=== PATIENT | female | born 1990 | race Caucasian/White ===

== ENCOUNTER 2019-11-05 11:57 | Emergency (ER) | payer BC, SELFPAY ==
[2019-11-05 12:15] VITALS: BP 129/84; PULSE 102; RESP 20; TEMP 37.1; O2SAT 100
--- NOTE | 2019-11-05 12:20 | ED.GENADULT ---
HPI - General Adult General Chief complaint: Upper Respiratory Infection Stated complaint: COUGH/FATIGUE/SOB Time Seen by Provider: 11/05/19 12:21 Source: patient and RN notes reviewed Mode of arrival: ambulatory Limitations: no limitations History of Present Illness HPI narrative: 28-year-old female with complaints of flu-like symptoms, fatigue, body aches, sore throat, and cough for 1 day. No treatment. Rhinorrhea and nasal congestion. Exacerbating factors consist of smoke and influenza exposure. No nausea, vomiting, and abdominal pain. Denies chest pain, dyspnea, coughing up blood, difficulty swallowing, jaw pain, dental pain, facial pain, foreign body sensation, and rash. Jordi denies being , LMP 2 weeks ago. Some parts of this dictation were generated by voice recognition software and may contain typographical and/or grammatical inaccuracies. Related Data Home Medications Medication Instructions Recorded Confirmed clindamycin phosphate 2 % VAGINAL DIRECTED 11/05/19 11/05/19 fluconazole 150 mg PO DIRECTED 11/05/19 11/05/19 metoprolol tartrate 25 mg PO DAILY 11/05/19 11/05/19 metronidazole 500 mg PO DIRECTED 11/05/19 11/05/19 Allergies Allergy/AdvReac Type Severity Reaction Status Date / Time No Known Allergies Allergy Verified 06/07/18 13:23 Review of Systems Review of Systems: Narrative: CONSTITUTIONAL: Complains of fatigue. Denies fever, chills, sweats. EYES: Denies visual changes, redness, discharge. ENT: Complains of rhinorrhea, congestion, sore throat. Denies otalgia. CARDIOVASCULAR: Denies chest pain, palpitations, edema. RESPIRATORY: Denies dyspnea, wheezing. Complains of dry cough. GASTROINTESTINAL: Denies abdominal pain, nausea, vomiting, diarrhea. GENITOURINARY: Denies dysuria, hematuria, abnormal discharge SKIN: Denies rash or itching. MUSCULOSKELETAL: Denies acute back pain, joint pain. Complains of myalgia. NEUROLOGIC: Denies numbness or focal weakness. PSYCHIATRIC: Denies anxiety or depression. All systems reviewed & are unremarkable except as noted in HPI and below. [facility] Past Medical History Medical History (Updated 11/05/19 @ 12:38 by NIR Le) Anorexia Anxiety Bacterial vaginosis Dysrhythmia, cardiac Near syncope Surgical History Surgical History (Updated 11/05/19 @ 12:37 by NIR Le) History of bunionectomy of left great toe History of loop recorder History of surgery on left wrist Family History Family History Father Hypertension Mother Patient's mother is in good health Sibling Patient's brother is in good health Social History Social History (Updated 11/05/19 @ 12:40 by NIR Le) Smoking packs per day: 0.25 Smoking cigarettes per day: 5.0 Smoking status: Current every day smoker Tobacco type: cigarettes Additional smoking assessment comments: Patient says that she has been smoking again for a month and half to 2 steph Alcohol intake: never Substance use: never Occupation/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 There is no relevant family history pertinent to the presenting complaint. Exam Narrative: Exam Narrative: GENERAL: This is a well-nourished, well-developed patient, in no apparent distress. Speaks in full sentences and ambulates with steady gait without dyspnea. HEAD: normocephalic, atraumatic. EYES: PERRL. Sclera clear/white. Vision is grossly intact. EARS: External ears normal, auditory canals clear and without drainage, TMs normal without perforation. Hearing grossly intact. NOSE: External nose normal with no obvious nasal discharge, nares with mild redness and enlarged turbinates, clear rhinorrhea. THROAT: Muco
== END 2019-11-05 12:35 | disposition home or self-care (01) ==
PROVIDERS: Emergency Provider Nurse Practitioner Family
DX: B34.9 Viral infection, unspecified (principal); F17.210 Nicotine dependence, cigarettes, uncomplicated; F41.9 Anxiety disorder, unspecified
CPT/HCPCS: 87804; 99213; G0463

== ENCOUNTER 2020-03-10 18:38 | Emergency (ER) | payer BC, SELFPAY ==
--- NOTE | ~2020-03-10 | CT_ITS ---
EXAMINATION: CT abdomen pelvis w con DATE: 03/10/2020 21:24 INDICATION: Right upper quadrant abdominal pain. TECHNIQUE: Computed tomography (CT) of the abdomen and pelvis was performed with 100 mL Omnipaque 350 intravenous contrast. Automated exposure control and iterative reconstruction technique were employe d. The dose-length product was 787.05 mGy-cm. COMPARISON: None. FINDINGS: Calcified pulmonary nodules and calcified right hilar lymph nodes are consistent with old g ranulomatous disease. No pleural effusion. The heart size is normal. No pericardial effusion. The dom er, gallbladder, spleen, pancreas, adrenal glands, and kidneys are normal. There is an intrauterine d evice in expected position. There are no dilated loops of bowel. The appendix is normal. There are no pathologically enlarged lymph nodes. There is no free intraperitoneal fluid. There is mild lumbar sp ondylosis. IMPRESSION: 1. No etiology for the patient's symptoms. Reviewed, dictated and finalized at location A.
[2020-03-10 18:40] VITALS: BP 142/98; PULSE 111; RESP 18; TEMP 36.9; O2SAT 99
--- NOTE | 2020-03-10 19:06 | ED.ABDPAIN ---
HPI - Abdominal Pain General Chief Complaint: Abdominal Pain Stated Complaint: Abd Pain Time Seen by Provider: 03/10/20 19:02 History of Present Illness HPI narrative: RUQ pain intermittently sice yesterday. Comes in paroxysms. Severe at times. Minimal pain currently. No nausea, vomiting, diarrhea, constipation. Related Data Home Medications Medication Instructions Recorded Confirmed No Home Medications 03/10/20 03/10/20 Allergies Allergy/AdvReac Type Severity Reaction Status Date / Time No Known Allergies Allergy Verified 03/10/20 18:41 Review of Systems Review of Systems: All systems reviewed & are unremarkable except as noted in HPI and below Constitutional: Constitutional: Denies fever(s) Cardiovascular: Cardiovascular: Denies chest pain Respiratory: Respiratory: Denies dyspnea Gastrointestinal: Gastrointestinal: Reports abdominal pain PMFSH Past Medical History Medical History Anorexia Anxiety Bacterial vaginosis Dysrhythmia, cardiac Near syncope Surgical History Surgical History History of bunionectomy of left great toe History of loop recorder History of surgery on left wrist Family History Family History Father Hypertension Mother Patient's mother is in good health Sibling Patient's brother is in good health Social History Social History Smoking packs per day: 0.25 Smoking cigarettes per day: 5.0 Smoking status: Current every day smoker Tobacco type: cigarettes Additional smoking assessment comments: Patient says that she has been smoking again for a month and half to 2 steph Alcohol intake: never Substance use: never 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 Gender identity (if verbalized by the patient): Female Exam Const: General: healthy appearing, no acute distress and alert Orientation/consciousness: patient oriented x3 HENMT: Head: normal to inspection Neck: Neck: normal visual inspection and no lymphadenopathy Chest: Chest palpation & inspection: no tenderness Resp: Effort & Inspection: normal respiratory effort Auscultation: clear to auscultation bilaterally, no rales, no rhonchi and no wheezes Cardio: Jugular venous distension: no JVD Rate: regular rate Rhythm: regular rhythm Heart sounds: no murmurs GI: Inspection: non-distended GI Palp: Yes Soft to palpation and No Tenderness to palpation present (GI) Skin: General skin exam: normal color Neuro: General: patient oriented x3 and moves all extremities Speech: normal speech Extrem: General: no edema Psych: Appearance: well kempt Affect: normal affect Course Vital Signs Vital signs: Vital Signs Temperature 36.9 C 03/10/20 18:40 Pulse Rate 111 H 03/10/20 18:40 Respiratory Rate 18 03/10/20 18:40 Blood Pressure 142/98 H 03/10/20 18:40 Pulse Oximetry 99 03/10/20 18:40 Temperature 36.9 C 03/10/20 18:40 Pulse Rate 76 03/10/20 22:26 Respiratory Rate 18 03/10/20 22:26 Blood Pressure 132/70 03/10/20 22:26 Pulse Oximetry 99 03/10/20 22:26 MDM - Abdominal Pain Differential Diagnosis Differential diagnosis: Likely acute appendicitis, calculus of kidney, constipation and pancreatitis Medical Records Attestation: I reviewed the patient's medical records. Lab Data Attestation: I reviewed the patient's lab results. Result diagrams: 03/10/20 19:05 03/10/20 19:05 Labs: Lab Results 03/10/20 03/10/20 03/10/20 Range/Units 19:05 19:05 20:33 WBC 8.6 (4.5-10.0) K/mm3 RBC 4.64 (4.2-5.4) M/mm3 Hgb 13.8 (12.0-15.0) g/dL Hct 40.9 (37.0-47.0) % MCV 88.1 (80-100) fl MCH 29.7 (26-34) pg MCHC 33.7 (32-36) g/dl RDW 12.3 (11.5-14.5) % Plt Count 288
[2020-03-10 19:13] LABS: Basophils Absolute Auto 0.1 K/mm3 (0.0-0.1); Basophils Percent Auto 0.6 % (0.2-1.2); Eosinophils Absolute Auto 0.1 K/mm3 (0-0.3); Eosinophils Percent Auto 1.6 % (0-4.4); Hematocrit 40.9 % (37.0-47.0); Hemoglobin 13.8 g/dL (12.0-15.0); Immature Granulocyte Absolute 0.02 K/mm3 (0.00-0.031); Immature Granulocyte Percent A 0.2 % (0-0.5); Lymphocytes Percent Auto 33.6 % (18.3-44.2); Mean Corpuscular HGB Conc 33.7 g/dl (32-36); Mean Corpuscular Hemoglobin 29.7 pg (26-34); Mean Corpuscular Volume 88.1 fl (80-100); Mean Platelet Volume 9.6 fl (7.4-10.4); Monocytes Absolute Auto 0.5 K/mm3 (0.1-0.6); Monocytes Percent Auto 5.6 % (2.6-8.5); Neutrophils Percent Auto 58.4 % (45.5-73.1); Platelet Count Result 288 k/mm3 (150-375); Red Blood Count 4.64 M/mm3 (4.2-5.4); Red Cell Distribution Width 12.3 % (11.5-14.5); White Blood Count 8.6 K/mm3 (4.5-10.0)
[2020-03-10 19:24] LABS: Alanine Aminotransferase 16 U/L (4-35); Albumin Level 4.4 g/dL (3.5-5.1); Alkaline Phosphatase 66 U/L (38-126); Aspartate Amino Transferase 23 U/L (14-36); Bilirubin,Total 0.4 mg/dL (0.2-1.3); Blood Urea Nitrogen 11 mg/dL (7-17); Calcium 9.1 mg/dL (8.4-10.2); Carbon Dioxide 27 mmol/L (22-30); Chloride 102 mmol/L (98-107); Estimated CRCL calculation 135 ml/min; Estimated Glomerular Filt Rate > 60; Glucose 93 mg/dL (65-105); Lipase 45 U/L (23-300); Potassium 3.7 mmol/L (3.4-5.0); Sodium 136 mmol/L (137-145)
[2020-03-10 20:37] VITALS: BP 122/90; PULSE 86; RESP 20; O2SAT 100
[2020-03-10 20:53] LABS: Add Urine Microscopic? YES; Appearance Urine Clear (Clear); Bilirubin Urine Negative (Negative); Blood Urine 2+ (Negative); Color Urine Colorless (Yellow); Glucose Urine UA Negative (Negative); Ketones Urine Negative (Negative); Leukocyte Esterase Ur Negative LEU/UL (Negative); Mucus Urine Rare /lpf; Nitrate Urine Negative (Negative); Protein Urine Negative (Negative); Specific Grav Ur 1.008 (1.001-1.035); Squamous Epithelial Cell Urine Rare /hpf (Few); Urobilinogen Urine Negative mg/dL (<2.0); WBC Urine 0-3 /hpf
[2020-03-10 22:26] VITALS: BP 132/70; PULSE 76; RESP 18; O2SAT 99
== END 2020-03-10 22:28 | disposition home or self-care (01) ==
PROVIDERS: General Practice; Emergency Provider Emergency Medicine; PCP Nurse Practitioner Family
DX: R10.11 Right upper quadrant pain (principal); F17.210 Nicotine dependence, cigarettes, uncomplicated
CPT/HCPCS: 36415; 74177; 80053; 81001; 81025; 83690; 85025; 99284; Q9967

== ENCOUNTER 2020-08-11 12:46 | Outpatient (RCR) | payer BC, SELFPAY | END 2020-11-09 23:59 | disposition home or self-care (01) | LOC: ANHLAB 12:46 | PROVIDERS: PCP Nurse Practitioner Family; Visit Provider Obstetrics & Gynecology | DX: O20.0 Threatened abortion (principal); Z3A.00 Weeks of gestation of pregnancy not specified | CPT/HCPCS: 36415; 84702; 85461 ==

== ENCOUNTER 2020-10-23 02:33 | Outpatient (CLI) | payer BC, SELFPAY ==
[2020-10-23 18:12] LABS: SARS-CoV-2 RNA PCR Negative
== END 2020-10-23 02:34 | disposition home or self-care (01) ==
LOC: ANHCOVIDDT 02:34
PROVIDERS: PCP Nurse Practitioner Family; Visit Provider Obstetrics & Gynecology
DX: Z01.812 Encounter for preprocedural laboratory examination (principal); Z20.822 Contact with and (suspected) exposure to COVID-19
CPT/HCPCS: C9803; U0003; U0005

== ENCOUNTER 2020-10-26 02:50 | Day surgery (SDC) | payer BC, SELFPAY ==
[2020-10-23 15:49] VITALS: BMI 33.4
--- NOTE | 2020-10-25 14:24 | WPDANESEPPF ---
Anes - Initial Pre Proc Eval Procedure: Operation Date: 10/26/20 13:00 Proposed Procedures p Suction Dilation And Curettage - Valentine Hsu MD Date/Time: 10/25/20 14:24 Surgeon: Valentine Hsu MD Pre Op Diagnosis: Retained Products of Conception Patient Data Age: 29 Gender: F Height: 1.68 m Weight: 94 kg Allergies Allergy/AdvReac Type Severity Reaction Status Date / Time No Known Allergies Allergy Verified 10/26/20 11:08 Home Medications Medication Instructions Recorded Confirmed Type albuterol 2 puff INHALATION Q4-6H PRN 10/23/20 10/23/20 History budesonide-formoterol [Symbicort] 2 puff INHALATION QAM 10/23/20 10/26/20 History metoprolol tartrate 25 mg PO DAILY 10/23/20 10/26/20 History Patient hx anesthesia problems: none Family hx anesthesia problems: none PMFSH Past Medical History Medical History (Updated 10/25/20 @ 14:25 by Daron Oakley MD) Anorexia Anxiety Bacterial vaginosis Depression Dysrhythmia, cardiac sinus tachycardia Near syncope Obesity Surgical History Surgical History History of bunionectomy of left great toe History of loop recorder History of surgery on left wrist Family History Family History Father Hypertension Mother Patient's mother is in good health Sibling Patient's brother is in good health Social History Social History Smoking packs per day: 1 Smoking cigarettes per day: 20.0 Years smoked: 10 Smoking pack-years: 10.00 Smoking status: Never smoker Tobacco type: e-cigarettes/vaping Additional smoking assessment comments: VAPES LOWEST NICTOINE, INTERMITTENLY THROUGHOUT DAY Alcohol intake: current Drinks per week: 10 Substance use: never Living arrangements: with family Additional living arrangements comments: SPOUSE 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 Questions were solicited and answers provided to the satisfaction of the patient/family/POA.
--- NOTE | 2020-10-26 11:17 | ECG_ITS ---
Measurements Intervals [place] Rate: 72 P: 46 AR: 155 QRS: 66 QRSD: 91 T: 26 QT: 391 QTc: 429 Interpretive Statements SINUS RHYTHM BASELINE ARTIFACT- I, II, AVR NORMAL ECG Electronically Signed On 10-26-2020 12:17:38 COMMUNICATIONS SPECIALIST by Suresh Hall D.O.
[2020-10-26] MEDS: ACETAMINOPHEN 500 MG TABLET 1000 MG PO (11:20)
[2020-10-26] MEDS: LACTATED RINGERS 1,000 ML 30 ML IV CONT (11:34)
[2020-10-26 11:42] VITALS: BP 119/74; PULSE 78; RESP 16; TEMP 36.3; O2SAT 99
--- NOTE | 2020-10-26 12:28 | P.HP_ITS ---
H&P: HPI History of Present Illness Date/Time: 10/26/20 12:28 Chief Complaint: persistent bleeding, retained POC Narrative: Jordi Ledesma is a 29 year old female who miscarried in Jul, then bled all august. US showed 2cm cystic, septated, vascular area at fundal endometrium. hcg now neg. on doxy for several days now for some uterine tenderness. Review of Systems Review of Systems: All systems reviewed & are unremarkable except as noted in HPI and below (hpi) [facility] Past Medical History Medical History (Updated 10/25/20 @ 14:25 by Daron Oakley MD) Anorexia Anxiety Bacterial vaginosis Depression Dysrhythmia, cardiac sinus tachycardia Near syncope Obesity Surgical History Surgical History History of bunionectomy of left great toe History of loop recorder History of surgery on left wrist Family History Family History Father Hypertension Mother Patient's mother is in good health Sibling Patient's brother is in good health Social History Social History Smoking packs per day: 1 Smoking cigarettes per day: 20.0 Years smoked: 10 Smoking pack-years: 10.00 Smoking status: Never smoker Tobacco type: e-cigarettes/vaping Additional smoking assessment comments: VAPES LOWEST NICTOINE, INTERMITTENLY THROUGHOUT DAY Alcohol intake: current Drinks per week: 10 Substance use: never Living arrangements: with family Additional living arrangements comments: SPOUSE 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 Meds Home Medications and Allergies Home Medications Medication Instructions Recorded Confirmed Type albuterol 2 puff INHALATION Q4-6H PRN 10/23/20 10/23/20 History budesonide-formoterol [Symbicort] 2 puff INHALATION QAM 10/23/20 10/26/20 History metoprolol tartrate 25 mg PO DAILY 10/23/20 10/26/20 History Allergies Allergy/AdvReac Type Severity Reaction Status Date / Time No Known Allergies Allergy Verified 10/26/20 11:08 Vital Signs Vital Signs - 24 hr 10/26/20 11:42 Temperature 97.3 F L Pulse Rate 78 Respiratory Rate 16 Blood Pressure 119/74 Pulse Oximetry 99 Exam Const: General: comfortable, no acute distress and in distress Resp: Auscultation: clear to auscultation bilaterally Cardio: Rate: regular rate Rhythm: regular rhythm GI: GI Palp: Yes Soft to palpation Skin: General skin exam: normal color and no rashes or lesions noted Psych: Mental Status: mental status grossly normal H&P: Results Labs Labs: hcg neg in office see HPI for US results. Assessment and Plan Additional Plan Discussed US results in depth. Not classic appearance for retained POC, but makes most sense given her history and clinical presentation. Consented for HSC and D and C. HSC first to look at lesion. Likely suction D and C. continue doxy, one dose IV today. will follow pathology closely.
--- NOTE | 2020-10-26 13:07 | WPDHPUPDATE1 ---
History and Physical Update Update Date/Time: 10/26/20 13:07 History and Physical has been reviewed, including an updated exam of the patient. There are NO changes in the patient's condition. Had one episode of a gush of blood since office visit, then stopped quickly. No pain. Taking doxy. NO fevers. Risks, benefits, and alternatives have been discussed and questions answered. Patient agrees to proceed with procedure.
--- NOTE | 2020-10-26 13:30 | SUR.OPER ---
Hysteroscopy irrigation 3800ml IVNS in and 3350ml IVNS out
[2020-10-26] MEDS: KETOROLAC 30 MG/ML VIAL (*BKC) IV PUSH (13:57)
--- NOTE | 2020-10-26 13:58 | P.OP_ITS ---
Procedure Note - Detailed Date of procedure: 10/26/20 Pre-op diagnosis: Retained Products of Conception Post-op diagnosis: other (partially cystic mass of endometrium, possible degenerating fibroid.) Procedure performed: hysteroscopy, suction D and C, myosure curettage Description of procedure: The patient was taken to the operating room where she received MAC anesthesia. [facility] Exam under anesthesia revealed normal retroverted uterus. She was prepped and draped in normal fashion. Her bladder was emptied with a red rubber catheter. The uterus sounded to 9cm. A speculum was placed and the cervix was grasped with a single tooth tenaculum. The cervix was already dilated enough to accomodate a 5mm hysteroscope. The scope was inserted and the uterine cavity visualized. A mass was noted on the posterior wall of the uterus, consistent with the location of the cystic vascular lesion on US. The scope was removed and given cystic nature of the mass, suction D and C was attempted. Several passes were made, obtaining minimal white tissue. The scope was reinserted and the mass appeared mostly unchanged. After a sharp curettage, the mass still remained mostly intact. A Myosure device was inserted. The first pass with the myosure did obtain what appeared like cyst wall, and part of the mass deflated. The remainder appeared more solid, similar to a degenerating fibroid. The specimen was sent to pathology. The tenaculum was removed and the cervix made hemostatic with pressure. THe speculum was removed. The patient was awakened from anesthesia and taken to the recovery room in good condition. Anesthesia: MAC Surgeon: Valentine Hsu MD Drains: No Packing: No Pathology: yes Complications: No immediate complications Condition: stable Disposition: floor Findings: EBL 50cc Fluid defecit 450cc, large amount of fluid on floor was approximated.
[2020-10-26 14:02] VITALS: BP 105/66; PULSE 75; RESP 20; O2SAT 97
[2020-10-26] MEDS: ONDANSETRON INJ 4 MG/2 ML VIAL IV PUSH (14:20)
[2020-10-26] MEDS: fentaNYL CITRATE INJ (*CRX) 100 MCG/2 ML VIAL 25 MCG IV PUSH (14:20)
[2020-10-26 14:32] VITALS: BP 118/81; PULSE 68; RESP 20; O2SAT 98
[2020-10-26 15:02] VITALS: BP 128/75; PULSE 65; RESP 20
== END 2020-10-26 15:15 | disposition home or self-care (01) ==
PROVIDERS: PCP Nurse Practitioner Family; Visit Provider Obstetrics & Gynecology
PROC: (CPT 59820; principal; 2020-10-26 13:00)
DX: O02.1 Missed abortion (principal); F41.9 Anxiety disorder, unspecified; R63.0 Anorexia; R00.0 Tachycardia, unspecified; E66.9 Obesity, unspecified; Z68.32 Body mass index [BMI] 32.0-32.9, adult
CPT/HCPCS: 59820; 88305; 93005; A9270; C9803; J1885; J2250; J2405; J2704; J3010; J7030; J7120; U0003; U0005

== ENCOUNTER 2022-08-16 17:21 | Emergency (ER) | payer BC, SELFPAY ==
[2022-08-16 18:22] VITALS: BP 153/100; PULSE 97; RESP 16; TEMP 36.4; O2SAT 100
--- NOTE | 2022-08-16 18:44 | ED.GENADULT ---
HPI - General Adult General Chief complaint: Upper Respiratory Infection Stated complaint: cp/sob Time Seen by Provider: 08/16/22 18:45 Source: patient Mode of arrival: ambulatory Limitations: no limitations History of Present Illness HPI narrative: Year old female patient presents to [facility] with complaints of URI symptoms. Patient states she was diagnosed with COVID about 6 days ago. Patient states she had very mild symptoms had a day or 2 without symptoms. Patient states that this morning she woke up with some shortness of breath especially on exertion, just feeling like she is having trouble breathing slight cough. Patient does have history of asthma and states she has been using her albuterol inhaler as needed but states it has only been about once a day. Denies any fevers, body aches or chills at this time. Related Data Home Medications Medication Instructions Recorded Confirmed albuterol 2 puff inhalation Q4-6H PRN Dyspnea 10/23/20 10/23/20 budesonide-formoterol HFA 160 2 puff inhalation QAM 10/23/20 10/26/20 mcg-4.5 mcg/actuation aerosol inhaler (Symbicort) metoprolol tartrate 25 mg tablet 25 mg PO DAILY 10/23/20 10/26/20 clobetasol 0.05 % scalp solution topical 08/16/22 cyclobenzaprine 5 mg tablet mg 08/16/22 ketoconazole 2 % shampoo topical 08/16/22 trazodone 50 mg tablet mg 08/16/22 Allergies Allergy/AdvReac Type Severity Reaction Status Date / Time No Known Allergies Allergy Verified 08/16/22 18:20 Review of Systems Review of Systems: CONSTITUTIONAL: Denies fever, chills, or sweats. EYES: Denies visual changes, redness, or discharge. ENT: Denies rhinorrhea, congestion, sore throat, or otalgia. CARDIOVASCULAR: Denies chest pain, palpitations, or edema. RESPIRATORY: Positive cough with dyspnea. GASTROINTESTINAL: Denies abdominal pain, nausea, vomiting, or diarrhea. GENITOURINARY: Denies dysuria or hematuria. SKIN: Denies rash or itching. MUSCULOSKELETAL: Denies back pain, joint pain, or myalgia. NEUROLOGIC: Denies headache, numbness, or weakness. PSYCHIATRIC: Denies anxiety or depression. [facility] Past Medical History Medical History (Updated 08/16/22 @ 18:57 by NIR Ng) Anorexia Anxiety Asthma Bacterial vaginosis Depression Dysrhythmia, cardiac sinus tachycardia Near syncope Obesity Surgical History Surgical History History of bunionectomy of left great toe History of loop recorder History of surgery on left wrist Family History Family History Father Hypertension Mother Patient's mother is in good health Sibling Patient's brother is in good health Social History Social History Smoking packs per day: 1 Smoking cigarettes per day: 20.0 Years smoked: 10 Smoking pack-years: 10.00 Smoking status: Never smoker Tobacco type: e-cigarettes/vaping Additional smoking assessment comments: VAPES LOWEST NICTOINE, INTERMITTENLY THROUGHOUT DAY Alcohol intake: current Drinks per week: 10 Substance use: never Additional living arrangements comments: SPOUSE 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 HEAD: Normocephalic, atraumatic. EYES: PERRLA and EOMI. ENT: Nares clear, no rhinorrhea or epistaxis. Mucous membranes moist. NECK: Supple. No lymphadenopathy CHEST: Clear to auscultation. No respiratory distress. Patient will talk in clear complete sentences. HEART: Regular rate and rhythm. No murmur heard. Normal peripheral pulses. ABDOMEN: Soft, nontender, nondistended, normal active bowel sounds. EXTREMITIES: Normal range of motion. No edema. SKIN: Warm, dry, no rash. NEURO: No focal deficits. Alert and
== END 2022-08-16 19:00 | disposition home or self-care (01) ==
PROVIDERS: Emergency Provider Nurse Practitioner Family
DX: J45.901 Unspecified asthma with (acute) exacerbation (principal); U07.1 COVID-19; E66.9 Obesity, unspecified; Z68.36 Body mass index [BMI] 36.0-36.9, adult; F17.290 Nicotine dependence, other tobacco product, uncomplicated
CPT/HCPCS: 99213; G0463

== ENCOUNTER 2023-03-11 14:40 | Emergency (ER) | payer BC, SELFPAY ==
--- NOTE | ~2023-03-11 | XR_ITS ---
EXAMINATION: XR abdomen obstructive series EXAMINATION: Obstructive series DATE: 03/11/2023 INDICATION: Right upper quadrant abdominal pain. Nausea. Constipation. TECHNIQUE: Upright and supine views of the abdomen on 3 radiographs were obtained. COMPARISON: None. FINDINGS: There are no dilated loops of bowel. There is liquid stool in the colon suggesting diarrhea . No free intraperitoneal gas. There is an intrauterine device in expected position. An electronic im plant overlies left chest. IMPRESSION: 1. Nonobstructive bowel gas pattern. Reviewed, dictated and finalized at location A.
== END 2023-03-11 15:45 | disposition home or self-care (01) ==
PROVIDERS: Emergency Provider Nurse Practitioner Family; PCP Nurse Practitioner Family
DX: R14.0 Abdominal distension (gaseous) (principal); R10.11 Right upper quadrant pain; R11.0 Nausea
CPT/HCPCS: 74019; 81002; 81025; 99213; G0463

== ENCOUNTER 2023-03-19 10:30 | Emergency (ER) | payer OTHER, SELFPAY ==
--- NOTE | ~2023-03-19 | XR_ITS ---
EXAMINATION: [id number] DATE: 03/19/2023 10:57 INDICATION: 7 days of the medial right knee pain TECHNIQUE: AP and lateral views of the right knee were obtained. COMPARISON: None. FINDINGS: Bone alignment is normal. No fracture. Joint spaces appear normal. Soft tissues are unremarkable. No right knee joint effusion. IMPRESSION: 1. . Negative right knee radiographs. Reviewed, dictated and finalized at location A.
--- NOTE | 2023-03-19 10:32 | ED.LOWEXIN ---
HPI - Extremity Injury (Lower) General Chief Complaint: Extremity Injury, Lower Stated Complaint: Right knee injury Time Seen by Provider: 03/19/23 10:32 Source: patient Mode of arrival: ambulatory Limitations: no limitations History of Present Illness HPI Narrative: Jordi is a 32-year-old female patient presenting to clinic today with complaints of right knee pain/injury. 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 Is having worse pain with bending and flexing the right knee. Reports pain is sharp and feels as though it is within the knee joint. Pain is worse with full flexion or full extension of the right knee. Weightbearing as tolerable. Related Data Home Medications Medication Instructions Recorded Confirmed albuterol sulfate 90 mcg/actuation 90 mcg inhalation QID PRN sob 03/19/23 03/19/23 aerosol inhaler alprazolam 0.25 mg tablet 0.25 mg PO DAILY PRN Anxiety 03/19/23 03/19/23 budesonide-formoterol HFA 160 2 inh inhalation DAILY 03/19/23 03/19/23 mcg-4.5 mcg/actuation aerosol inhaler cyclobenzaprine 5 mg tablet 5 mg PO DAILY PRN muscle spasms 03/19/23 03/19/23 desvenlafaxine succinate 50 mg 50 mg PO DAILY 03/19/23 03/19/23 tablet,extended release 24 hr metformin 1,000 mg tablet 1,000 mg PO DAILY 03/19/23 03/19/23 metoprolol tartrate 25 mg tablet 25 mg PO DAILY 03/19/23 03/19/23 spironolactone 100 mg tablet 100 mg PO DAILY 03/19/23 03/19/23 Allergies Allergy/AdvReac Type Severity Reaction Status Date / Time No Known Allergies Allergy Verified 03/19/23 10:44 Review of Systems Review of Systems: Pertinent positives per HPI. Patient denies any fever, chills, rash, headache, visual changes, dizziness, cough, runny nose, sore throat, shortness of breath, chest pain, palpitations, nausea, vomiting, diarrhea, constipation, abdominal pain, or any urinary issues. PMFSH Past Medical History Medical History Anorexia Anxiety Asthma Bacterial vaginosis Depression Dysrhythmia, cardiac sinus tachycardia Near syncope Obesity Surgical History Surgical History History of bunionectomy of left great toe History of loop recorder History of surgery on left wrist Family History Family History Father Hypertension Mother Patient's mother is in good health Sibling Patient's brother is in good health Social History Social History Smoking packs per day: 1 Smoking cigarettes per day: 20.0 Years smoked: 10 Smoking pack-years: 10.00 Smoking status: Never smoker Tobacco type: e-cigarettes/vaping Additional smoking assessment comments: VAPES LOWEST NICTOINE, INTERMITTENLY THROUGHOUT DAY Alcohol intake: current Drinks per week: 10 Substance use: never Living arrangements: with family Additional living arrangements comments: SPOUSE 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 There is no relevant family history pertinent to the patient complaint. Exam Narrative: General: Well-developed, well nourished, in no apparent distress Head: Normocephalic, atraumatic. Cardio: Regular rate and rhythm, s1 and s2 normal, no murmur appreciated. Resp: Clear to auscultation bilaterally, no rhonchi, rales, wheezing or rubs. Musculoskeletal: No deformity, tender to palpation to the medial anterior knee and tenderness over the MCL ligament, pain with valgus stress test without laxity, is having pain with full
[2023-03-19 10:43] VITALS: BP 137/99; PULSE 127; RESP 16; TEMP 36.7; O2SAT 99
== END 2023-03-19 11:14 | disposition home or self-care (01) ==
LOC: EXPCOLL 10:37
PROVIDERS: Emergency Provider Nurse Practitioner Family; PCP Nurse Practitioner Family
DX: M23.91 Unspecified internal derangement of right knee (principal); F17.290 Nicotine dependence, other tobacco product, uncomplicated; F41.9 Anxiety disorder, unspecified; F32.A Depression, unspecified; J45.909 Unspecified asthma, uncomplicated; E66.9 Obesity, unspecified; Z68.35 Body mass index [BMI] 35.0-35.9, adult
CPT/HCPCS: 73560; 99213; G0463

== ENCOUNTER 2024-10-25 11:22 | Outpatient (CLI) | payer OTHER, SELFPAY ==
--- NOTE | ~2024-10-25 | MMUS_ITS ---
EXAMINATION: MM diagnostic wilma BI w divina, US breast BI complete HISTORY: Burning sensation of the breasts. TECHNIQUE: Additional 3-D tomosynthesis images of the breasts were performed and synthetic 2-D images were generated. CAD analysis was submitted and interpreted. High resolution bilateral complete breas t ultrasound was performed. COMPARISON: None BREAST PARENCHYMAL COMPOSITION: Not dense: There are scattered areas of fibroglandular density. FINDINGS: MAMMOGRAPHIC FINDINGS: There are no suspicious masses, calcifications or architectural distortion in either breast to sugges t malignancy. ULTRASOUND: Complete US of all 4 quadrants of the breast/s and retroareolar region was reviewed. In the right david ast at 8:00, 2 cm from the nipple there is a small intramammary lymph node measuring 5 mm. No suspici ous masses in either breast to suggest malignancy. IMPRESSION: 1. No evidence for malignancy in either breast. 2. Routine yearly screening mammogram at age 40 and regular clinical breast examination are recommend ed. BI-RADS Category 2: Benign finding(s). Reviewed, dictated and finalized at location A. IMEN PROCESSOR IMPRESSION: 1. No evidence for malignancy in either breast. 2. Routine yearly screening mammogram at age 40 and regular clinical breast exa mination are recommended. BI-RADS Category 2: Benign finding(s).
--- OUTSIDE RECORDS SUMMARY | 2024-10-25 12:35 | XMS_ITS | Encounter Summary ---
Author Organization [facility] Address [address] [place] [address]. [place] [address] [place] [address] Care Team Providers Care Ballpoint Pen Assembly Machine Operator Name Role Phone Jess Sosa [facility] Primary Care Provider [phone] Gerard Olson MD Unavailable [phone] [facility] MD Unavailable [phone] Dinah Mcintosh MD Primary Care Provider [phone] Encounter Details Date Type Department Care Team (Late st Contact Info) Description 01/10/2021 MyCLoom Decort Message Enc [facility] Medical Group Family Medicine [facility] [address] [place] [address] Jess Sosa [facility] [address] [place] [address] RE: Medication Questions Social History Tobacco Use Types Packs/Day Years Used Date Smoking Tobacco: Former Cigarettes 1 10 0 02/27/2008 - 02/26/2018 Smokeless Tobacco: Never Alcohol Use Standard Drinks/Week Comments Yes 0 (1 standard drink = 0.6 oz pur e alcohol) PHQ-2 Answer Date Recorded PHQ-2 Score - If the patient scores above 3, please move on to questions 3-9 0 10/09/2020 Comments No Sex and Gender Information Value Date Recorded Sex Assigned at Not on file Legal Sex Female 9:09 PM CDT Gender Identity Not on file Sexual Orientation Not on file 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 Unable to assess 12/18/2020 12:51 PM CDT documented as of this encounter Plan of Treatment Upcoming Encounters Date Type Department Care Team (Late st Contact Info) Description 11/01/2024 8:45 AM SUPERVISOR INSPECTION ROOM Office Visit [facility] [facility] THREE [facility], [place] [address] [place] [address] Art Rao MD Three [facility]. [place] [address] [place], [place] [id number] documented as of this encounter Visit Diagnoses Not on filedocumented in this encounter Care Teams Ballpoint Pen Assembly Machine Operator Relationship Specialty Start Date End Date Jess Sosa [facility] [address] [place] [address] PCP - General NURSE PRACTITIONER 11/10/18 05/28/24 Dinah Mcintosh MD [address] [place] [address] PCP - General FAMILY PRACTICE 05/29/24 Gerard Olson MD [address] [place] [address] ADMINISTRATIVE SERVICES COORDINATOR ONCOLOGY 05/18/19 Art Rao MD Three [facility]. [place] [address] [place], [place] [id number] EP International Bank Manager CARDIOVASCULAR DISEASE 06/01/19 documented as of this encounter
--- OUTSIDE RECORDS SUMMARY | 2024-10-25 12:35 | XMS_ITS | Encounter Summary ---
Author Organization [facility] [place] [facility] Address [address] [place] [address]. [place] [address] [place] [address] Care Team Providers Care Bullet Slug Casting Machine Operator Name Role Phone [facility] Primary Care Provider [phone] Gerard Olson MD Unavailable [phone] [facility] Unavailable [phone] Dinah Mcintosh MD Primary Care Provider [phone] Encounter Details Date Type Department Care Team (Late st Contact Info) Description 10/31/2020 WaysGo Message Enc [place] [facility]'[address] [address] Josefina, [facility] Provider Disconnected Carelink since 09/04/20 letter 3 Social History Tobacco Use Types Packs/Day Years [...] Industry Job Start Date Job End Date [employer]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 No / Unsure 10/09/2020 2:40 PM STEEL BURNER documented as of this encounter Plan of Treatment Upcoming Encounters Date Type Department Care Team (Late st Contact Info) Description 11/01/2024 8:45 AM STEEL BURNER Office Visit [facility] [facility] [facility], [place] [address] [place] [address] Art Rao MD Three [facility]. [place] [address] [place] [address] documented as of this encounter Visit Diagnoses Not on filedocumented in this encounter Care Teams Bullet Slug Casting Machine Operator Relationship Specialty Start Date End Date [facility] [address] [place] [address] PCP - General NURSE PRACTITIONER 11/10/18 05/28/24 Dinah Mcintosh MD [address] [place] [address] PCP - General FAMILY PRACTICE 05/29/24 Gerard Olson MD [address] [place], [place] [id number] BARGE WORKER ONCOLOGY 05/18/19 Art Rao MD [facility]. [place] [address] [place] [address] EP Veterinary Manager CARDIOVASCULAR DISEASE 06/01/19 documented as of this encounter
--- OUTSIDE RECORDS SUMMARY | 2024-10-25 12:35 | XMS_ITS | Encounter Summary ---
Author Organization [facility] Address [address] [place] [address]. [place] [address] [place] [address] Care Team Providers Care Cleaning Validation Consultant Name Role Phone Jess Sosa [facility] Primary Care Provider [phone] Gerard Olson MD Unavailable [phone] [facility] m[facility] MD Unavailable [phone] Dinah Mcintosh MD Primary Care Provider [phone] Encounter Details Date Type Department Care Team (Late st Contact Info) Description 01/14/2024 MyChart Message Enc [facility] Medical Group Family Medicine [facility] [address] [place] [address] Jess Sosa [facility] [address] [place] [address] physical Social History Tobacco Use Types Packs/Day Years Used Date Smoking Tobacco: Former Cigarettes 1 10 0 02/27/2008 - 02/26/2018 Smokeless Tobacco: Never Alcohol Use Standard Drinks/Week Comments Yes 0 (1 standard drink = 0.6 oz pur e alcohol) PHQ-2 Answer Date Recorded Patient Health Questionnaire-2 Score 0 01/14/2024 Comments No Sex and Gender Information Value Date Recorded Sex Assigned at Not on file Legal Sex Female 9:09 PM CDT Gender Identity Not on file Sexual Orientation Not on file Occupation Industry Job Start Date Job End Date [employer] 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 [place] [address] [place], [place] [id number] documented as of this encounter Visit Diagnoses Not on filedocumented in this encounter Additional Health Concerns Assessment Noted Time PHQ-9 Depression Total Score: 0 01/14/20 24 11:08 AM CDT documented as of this encounter Care Teams Cleaning Validation Consultant Relationship Specialty Start Date End Date [facility] [address] [place] [address] PCP - General NURSE PRACTITIONER 11/10/18 05/28/24 Dinah Mcintosh MD [address] [place] [address] PCP - General FAMILY PRACTICE 05/29/24 Gerard Olson MD [address] [place] [address] AUTOMATION AND CONTROLS SUPERVISOR ONCOLOGY 05/18/19 Art Rao MD Three [facility]. [place] [address] [place], [place] [address] EP Digital Sales Representative CARDIOVASCULAR DISEASE 06/01/19 documented as of this encounter
--- OUTSIDE RECORDS SUMMARY | 2024-10-25 12:35 | XMS_ITS | Encounter Summary ---
Author Organization [facility] Address [address] [place] [address]. [place] [address] [place] [address] Care Team Providers Care Line Patroller Name Role Phone Jess Sosa [facility] Primary Care Provider [phone] Gerard Olson MD Unavailable [phone] [facility] Unavailable [phone] Dinah Mcintosh MD Primary Care Provider [phone] Encounter Details Date Type Department Care Team (Late Contact Info) Description 06/21/2019 MyChart Message Enc [facility] Medical Group Family Medicine [facility] [address] [place] [address] Jess Sosa [facility] [address] [place] [address] RE: Question Social History Tobacco Use Types Packs/Day Years Used Date Smoking Tobacco: Former Cigarettes 1 10 0 02/27/2008 - 02/26/2018 Smokeless Tobacco: Never Alcohol Use Standard Drinks/Week Comments Yes 0 (1 standard drink = 0.6 oz pur e alcohol) Comments No Sex and Gender Information Value Date Recorded Sex Assigned at Not on file Legal Sex Female 9:09 PM CDT Gender Identity Not on file Sexual Orientation Not on file documented as of this encounter Plan of Treatment Upcoming Encounters Date Type Department Care Team (Late Contact Info) Description 11/01/2024 8:45 AM ASPHALT PAVER Office Visit [facility] [facility], [address] [address] Art Rao MD Three [facility]. [facility] [address] [place] [address] documented as of this encounter Visit Diagnoses Not on filedocumented in this encounter Care Teams Line Patroller Relationship Specialty Start Date End Date Jess Sosa [facility] [address] [place] [address] PCP - General NURSE PRACTITIONER 11/10/18 05/28/24 Dinah Mcintosh MD [facility] [place] [address] PCP - General FAMILY PRACTICE 05/29/24 Gerard Olson MD [address] [place], [place] [address] [address] SENIOR INTERIOR DESIGNER ONCOLOGY 05/18/19 Art Rao MD Three [facility]. [facility] [address] [place] [address] EP Inletter CARDIOVASCULAR DISEASE 06/01/19 documented as of this encounter
--- OUTSIDE RECORDS SUMMARY | 2024-10-25 12:35 | XMS_ITS | Encounter Summary ---
Author Organization [facility] Address [address] [place] [address]. [place], [place] [address] [place] [address] Care Team Providers Care Associate Account Manager Name Role Phone Gerard Olson MD Unavailable [phone] Art Rao MD Unavailable [phone] Dinah Mcintosh MD Primary Care Provider [phone] Reason for Referral * Consultation (Routine) - New Request Specialty Diagnoses / Procedures Referred By Fátima pro Referred To Contact CARDIOLOGY / Cardiology Diagnoses SVT (supraventricular tachycardia) ([facility]) Procedures OFFICE/OUTPATIENT NEW LOW MDM 30-44 MINUTES OFFICE/OUTPT VISIT,NEW,LEVL IV OFFICE/OUTPT VISIT,NEW,LEVL V OFFICE/OUTPT VISIT,EST,LEVL III OFFICE/OUTPT VISIT,EST,LEVL IV OFFICE/OUTPT VISIT,EST,LEVL V Dinah Mcintosh MD [address] [place] [address] Phone: tel: fax: [facility] THREE [facility] [place], [address] [address] Phone: tel: fax: Referral ID Status Reason Start Date Expiration Date Visits Requested Visits Authorized [id number] New Request Specialty Services 10/25/2024 11/26/2025 1 1 Scheduling Instructions Was seeing Dr. Rao for SVT, CAMI 12/2022 CAR SALESPERSON Reason for Visit * Reason Onset Date Comments Referral 10/24/2024 Encounter Details Date Type Department Care Team (Late Contact Info) Description 10/24/2024 Telephone [facility] Medical Group Family [facility] [address] [place] [address] Dinah Mcintosh MD [address] [place], [place] [phone] Referral Social History Tobacco Use Types Packs/Day Years Used Date Smoking Tobacco: Former Cigarettes 1 10 0 02/27/2008 - 02/26/2018 Smokeless Tobacco: Never Alcohol Use Standard Drinks/Week Comments Yes 0 (1 standard drink = 0.6 oz pur e alcohol) PHQ-2 Answer Date Recorded Patient Health Questionnaire-2 Score 0 06/10/2024 Comments No Sex and Gender Information Value Date Recorded Sex Assigned at Not on file Legal Sex Female 9:09 PM CDT Gender Identity Not on file Sexual Orientation Not on file 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 Not on file Not on file documented as of this encounter Progress Notes * Dinah Mcintosh MD - 10/25/2024 10:31 AM CSTAddended by: DINAH MCINTOSH on: 10/25/2024 10:31 AM Modules accepted: Orders CAR SALESPERSON * Johana Chow MA - 10/24/2024 3:16 PM CST Pt would like an updated referral to her cardio that she was attend in 2019 CAR SALESPERSON documented in this encounter Plan of Treatment Upcoming Encounters Date Type Department Care Team (Late Contact Info) Description 11/01/2024 8:45 AM USED CAR SALESPERSON Office Visit [facility] [facility] THREE [facility], [place] [address] [place] [address] Art Rao MD Three [facility]. [place] [address] [place] [address] Scheduled Referrals Name Type Priority Associated Diagnoses Orde r Schedule Ambulatory referral to Cardiology, Adult ([facility]) Referral Routine SVT (supraventricular tachycardia) ([facility]) Ordered: 10/25/2024 documented as of this encounter Visit Diagnoses Diagnosis SVT (supraventricular tachycardia) ([facility])- Primary Other specified cardiac dysrhythmias documented in this encounter Additional Health Concerns Assessment Noted Time PHQ-9 Depression Total Score: 4 06/10/20 24 10:35 AM CDT documented as of this encounter Care Teams Associate Account Manager Relationship Specialty Start Date End Date Dinah Mcintosh MD [address] [place] [address] PCP - General FAMILY PRACTICE 05/29/24 Gerard Olson MD [address] [place] [address] CROTCH PIECE BASTER ONCOLOGY 05/18/19 Art Rao MD [facility]. [address] [address] EP Remarketing Rep CARDIOVASCULAR DISEASE 06/01/19 documented as of this encounter
--- OUTSIDE RECORDS SUMMARY | 2024-10-25 12:35 | XMS_ITS | Encounter Summary ---
Author Organization [facility] Address [address] [place] [address]. [place] [address] [place] [address] Care Team Providers Care Discharge Coordinator Name Role Phone [facility] Primary Care Provider [phone] Gerard Olson MD Unavailable [phone] [facility] Unavailable [phone] Dinah Mcintosh MD Primary Care Provider [phone] Encounter Details Date Type Department Care Team (Late st Contact Info) Description 10/01/2022 WePlann Message Enc [place] [facility]'[address] [address] [employer], [facility] Provider Carelink Monitor not connecting Social History Tobacco Use Types Packs/Day Years [...] Start Date Job 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 [place] [address] [place], [place] [address] documented as of this encounter Visit Diagnoses Not on filedocumented in this encounter Care Teams Discharge Coordinator Relationship Specialty Start Date End Date Jess Sosa [facility] [address] [place] [address] PCP - General NURSE PRACTITIONER 11/10/18 05/28/24 Dinah Mcintosh MD [address] [place] [address] PCP - General FAMILY PRACTICE 05/29/24 Gerard Olson MD [address] [place] [address] MECHANICAL ENGINEERING TECHNICIAN ONCOLOGY 05/18/19 Art Rao MD Three [facility]. [place] [address] [place], [place] [address] EP Associate Programmer CARDIOVASCULAR DISEASE 06/01/19 documented as of this encounter
--- OUTSIDE RECORDS SUMMARY | 2024-10-25 12:35 | XMS_ITS | Encounter Summary ---
Author Organization [facility] Address [address] [place] [address]. [place] [address] [place] [address] Care Team Providers Care Outside Sales Account Executive Name Role Phone Jess Sosa [facility] Primary Care Provider [phone] Gerard Olson MD Unavailable [phone] [facility] MD Unavailable [phone] Dinah Mcintosh MD Primary Care Provider [phone] Encounter Details Date Type Department Care Team (Late st Contact Info) Description 12/24/2019 FIGSt Message Enc [facility] Medical [facility] Family Medicine [facility] [address] [place] [address] Jess Sosa [facility] [address] [place] [address] RE: Other Social History Tobacco Use Types Packs/Day Years [...] Industry 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 No / Unsure 12/27/2019 10:49 AM CDT documented as of this encounter Plan of Treatment Upcoming Encounters Date Type Department Care Team (Late st Contact Info) Description 11/01/2024 8:45 AM OIL EXPLORATION ENGINEER Office Visit [facility] [facility] THREE [facility], [place] [address] [place], [place] [phone] Art Rao MD [facility]. [place] [address] [place], [place] [id number] documented as of this encounter Visit Diagnoses Not on filedocumented in this encounter Care Teams Outside Sales Account Executive Relationship Specialty Start Date End Date [facility] [address] [place] [address] PCP - General NURSE PRACTITIONER 11/10/18 05/28/24 Dinah Mcintosh MD [address] [place] [address] PCP - General FAMILY PRACTICE 05/29/24 Gerard Olson MD [address] [place] [address] BASIN TENDER ONCOLOGY 05/18/19 Art Rao MD [facility]. [place] [address] [place] [address] EP Utility Driver CARDIOVASCULAR DISEASE 06/01/19 documented as of this encounter
--- OUTSIDE RECORDS SUMMARY | 2024-10-25 12:35 | XMS_ITS | Encounter Summary ---
Author Organization [facility] Address [address] [place] [address]. [place] [address] [place] [address] Care Team Providers Care Retail Area Manager Name Role Phone [facility] Primary Care Provider [phone] Gerard Olson MD Unavailable [phone] [facility] Unavailable [phone] Dinah Mcintosh MD Primary Care Provider [phone] Encounter Details Date Type Department Care Team (Late st Contact Info) Description 11/23/2020 [employer] Message Enc [facility] [address] [address], 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. [place] [address] [place], [place] [address] documented as of this encounter Visit Diagnoses Not on filedocumented in this encounter Care Teams Retail Area Manager Relationship Specialty Start Date End Date Jess Sosa [facility] [address] [place] [address] PCP - General NURSE PRACTITIONER 11/10/18 05/28/24 Dinah Mcintosh MD [address] [place] [address] PCP - General FAMILY PRACTICE 05/29/24 Gerard Olson MD [address] [place] [address] CONSULTING INTERN ONCOLOGY 05/18/19 Art Rao MD Three [facility]. [place] [address] [place], [place] [address] EP Fast Foods Worker CARDIOVASCULAR DISEASE 06/01/19 documented as of this encounter
--- OUTSIDE RECORDS SUMMARY | 2024-10-25 12:35 | XMS_ITS | Encounter Summary ---
Author Organization [facility] Address [address] [place] [address]. [place], [place] [address] [place] [address] Care Team Providers Care Pest Control Pilot Name Role Phone [facility] Primary Care Provider [phone] Gerard Olson MD Unavailable [phone] Art Rao MD Unavailable [phone] Dinah Mcintosh MD Primary Care Provider [phone] Encounter Details Date Type Department Care Team (Late st Contact Info) Description 07/06/2019 MyCOpti-Sourcet Message Enc [facility] Medical Group Family [address] [address] Nicolle Jimenes MA Referral Social History Tobacco Use Types Packs/Day [...] (Late Contact Info) Description 11/01/2024 8:45 AM MIDWIFE Office Visit [facility] THREE [facility], [place] [address] [place] [address] Art Rao MD [facility]. [place] [address] [place] [address] documented as of this encounter Visit Diagnoses Not on filedocumented in this encounter Care Teams Pest Control Pilot Relationship Specialty Start Date End Date Jess [facility] [address] [place] [address] PCP - General NURSE PRACTITIONER 11/10/18 05/28/24 Dinah Mcintosh MD [address] [place] [address] PCP - General FAMILY PRACTICE 05/29/24 Gerard Olson MD [address] [place] [address] PAINTER INTERIOR FINISH ONCOLOGY 05/18/19 Art Rao MD [facility] [address] [place], [place] [address] EP Felt Pad Cutter CARDIOVASCULAR DISEASE 06/01/19 documented as of this encounter
--- OUTSIDE RECORDS SUMMARY | 2024-10-25 12:35 | XMS_ITS | Encounter Summary ---
Author Organization [facility] Address [address] [place] [address]. [place] [address] [place] [address] Care Team Providers Care Clam Dredge Boat Captain Name Role Phone Jess Sosa [facility] Primary Care Provider [phone] Gerard Olson MD Unavailable [phone] [facility] Unavailable [phone] Dinah Mcintosh MD Primary Care Provider [phone] Encounter Details Date Type Department Care Team (Late st Contact Info) Description 02/14/2023 Typesafet Message Enc [facility] Medical Group Family Medicine [facility] [address] [place] [address] Jess Sosa [facility] [address] [place] [address] [employer] Social History Tobacco Use Types Packs/Day Years [...] Start Date 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 No / Unsure 02/12/2023 1:33 PM CDT documented as of this encounter Plan of Treatment Upcoming Encounters Date Type Department Care Team (Late st Contact Info) Description 11/01/2024 8:45 AM PARA PROFESSIONAL Office Visit [facility] [place] [address] [place] [address] Art Rao MD Three [facility]. [place] [address] [place], [place] [phone] documented as of this encounter Visit Diagnoses Not on filedocumented in this encounter Care Teams Clam Dredge Boat Captain Relationship Specialty Start Date End Date Jess Sosa [facility] [address] [place] [address] PCP - General NURSE PRACTITIONER 11/10/18 05/28/24 Dinah Mcintosh MD [address] [place] [address] PCP - General FAMILY PRACTICE 05/29/24 Gerard Olson MD [address] [place] [address] CHARACTER ACTRESS ONCOLOGY 05/18/19 Art Rao MD Three [facility]. [place] [address] [place], [place] [id number] EP Property Controller CARDIOVASCULAR DISEASE 06/01/19 documented as of this encounter
--- OUTSIDE RECORDS SUMMARY | 2024-10-25 12:35 | XMS_ITS | Clinical Summary ---
Author Organization [facility] Address [address] [place] [address]. [place], [place] [address] [place] [address] Care Team Providers Care Banking Services Advisor Name Role Phone Gerard Olson MD Unavailable [phone] Art Rao MD Unavailable [phone] Dinah Mcintosh MD Primary Care Provider [phone] Allergies Active Allergy Reactions Criticality Noted Date Comments Iodinated Contrast Media Other (see comment) Hot feeling Iodine Other (see comment) Low 12/04/2021 Medications budesonide-formo terol (SYMBICORT) 160-4.5 MCG/ACT inhalerIndicatio ns:Seasonal asthma ([facility]) Inhale 2 puffs into the lungs 2 (two) times daily. 10.2 g 3 2 Active clobetasol (TEMOVATE) 0.05 % external solution Apply topically 2 (two) times daily. 2 Active ketoconazole (NIZORAL) 2 % shampoo 2 Active levonorgestrel (MIRENA, 52 MG,) 20 MCG/DAY IUD 1 Intra Uterine Device by Intrauterine route once. Active metFORMIN (GLUCOPHAGE) 1000 MG tablet Take 1 tablet (1,000 mg total) by mouth daily with breakfast. 2 Active spironolactone (ALDACTONE) 100 MG tablet Take 1 tablet (100 mg total) by mouth daily. Active traZODone (DESYREL) 50 MG tabletIndication s:Primary insomnia TAKE 1 TABLET(50 MG) BY MOUTH EVERY NIGHT AT BEDTIME 30 tablet 1 3 Active Additional Information Patient not taking.Reported on 06/10/2024 ALPRAZolam (XANAX) 0.25 MG tabletIndication s:PMDD (premenstrual dysphoric disorder),Anxiet y Take 1 tablet (0.25 mg total) by mouth daily as needed for Anxiety. 30 tablet 3 Active Additional Information Patient not taking.Reported on 01/14/2024 ipratropium (ATROVENT HFA) 17 MCG/ACT inhalerIndicatio ns:Seasonal asthma (HHS/HCC) Inhale 2 puffs into the lungs every 6 (six) hours. 12.9 g 1 3 Active metoprolol tartrate (LOPRESSOR) 25 MG tabletIndication s:Hypertension, essential, benign TAKE 1 TABLET(25 MG) BY MOUTH TWICE DAILY 60 tablet 3 4 Active fluconazole (DIFLUCAN) 150 MG tabletIndication s:Yeast vaginitis Take 1 tab now and may repeat in 3 days if needed 2 tablet 4 Active Additional Information Patient not taking.Reported on 06/10/2024 albuterol sulfate HFA (PROAIR HFA) 108 (90 Base) MCG/ACT inhalerIndicatio ns:Mild intermittent asthma without complication (HHS/HCC) Inhale 2 puffs into the lungs every 6 (six) hours as needed for Wheezing or Shortness of breath. 18 g 3 4 Active Active Problems Patient Care Coordination No te Formatting of this note migh t be different from the original. [facility] Problem Noted Date Diagnosed Date PMDD (premenstrual dysphoric disorder) 3 Palpitations 12/13/2021 Overview (12/13/2021): MDT REVEAL LINQ IMPLANTED 08/12/19 FOR PALP Status post placement of implantable loop record er 12/13/2021 Overview (12/13/2021): MDT REVEAL LINQ IMPLANTED 08/12/19 FOR PALP Anxiety 04/12/2021 Tobacco user 04/12/2021 Mixed hyperlipidemia 05/18/2019 Hypertension, essential, benign 01/14/2018 Tachycardia, unspecified 01/14/2018 Resolved Problems Problem Noted Date Diagnosed Date Resolved Date Gastroesophageal reflux disease 04/12/2021 04/10/2022 test negative 11/09/201809/2021 Counseling for HPV (human pa pillomavirus) vaccination 10/26/2018 04/15/2021 Acute vaginitis 08/31/2018 10/02/2021 Bacterial vaginosis 01/14/2018 04/11/20 20 Yeast vaginitis 01/14/2018 04/11/2020 Encounter for preventive health examination 01/13/2018 06/08/2020 Tobacco use 08/27/2015 05/18/2019 Encounters Date Type Department Care Team Description 10/24/[address] [address] Dinah Mcintosh MD Referral 09/06/[address] [address] Dinah Mcintosh MD Medication Request from Last 3 Months Immunizations Name Administration Dates Next Due Dtap (Acel-Immune) 05/18/2007, 8,05/01/1995,08/20,06/11/1993,02/11/1993 Dtap (Generic) 05/18/2007, 8,05/01/1995,08/20,06/11/1993,02/11/1993 Fluzone 6 Months+ Quad (0.5 mL Prefilled Syringe) 10/02/2021 Hepatitis A (Havrix [address]) 01/26/2015, 007 Hepatitis A Vaccine - 2 Dose 01/26/2015,05/18/20 07 Hepatitis B (Generic: Adult) 02/23/2003,04/19/19 98,05/04/1997 Hepatitis B Pediatric 02/23/2003,04/19/1998,0803/1997 Hepatitis B Vaccine Adult 02/23/2003 Hib (PedvaxHIB)3 Dose 03/06/1994, 993,06/11/1993,02/11 Hib Vaccine, Hboc 03/06/1994, 3,06/11/1993,02/11 Hib Vaccine, Prp-Omp 03/06/1994,08/20/19 93,06/11/1993,02/11 Influenza (Generic) 07/29/2016 MMR (Generic) 04/19/1998,03/06/1994 MMR (MMRII) 04/19/1998,03/06/1994 Meningcoccal Group B (Bexser o)(aka Meningitis) 01/26/2015,05/18/2007 Meningococcal (Menactra) 01/26/2015,05/18/2007 Meningococcal B 01/26/2015,05/18/2007 Polio IPV (Ipol) 04/19/1998, 5,06/11/1993,02/11 Polio Ipv (Generic) 04/19/1998, 5,06/11/1993,02/11 Tdap (Generic) 06/15/2017,05/18/2007 Varicella (Varivax) 06/15/2017 Family History Medical History Relation Comments Drug Abuse Brother Heart Disease Father Hyperlipidemia Father Hypertension Father CABG Maternal Grandmother NE Maternal Grandmother Stent Cardiac Maternal Grandmother Stroke Maternal Grandmother NE Mother v tach Mother cardiac arrest NE Paternal Grandfather Valve Disease Paternal Grandfather Stroke Paternal Grandmother Relation Status Comments Brother Alive Father Alive Maternal Grandfather Alive Maternal Grandmother (Age 62) Mother Alive Paternal Grandfather (Age 66) Paternal Grandmother (Age 71) Social History Tobacco Use Types Packs/Day Years Used Date Smoking Tobacco: Former Cigarettes 1 10 0 02/27/2008 - 02/26/2018 Smokeless Tobacco: Never Tobacco Cessation:Counseling Given: No Alcohol Use Standard Drinks/Week Comments Yes 0 [...] Industry 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 Date 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 Not on file Not on file Last Filed Vital Signs Vital Sign Reading Time Taken Comments Blood Pressure 132/84 06/10/2024 10:57 AM CDT Pulse 91 06/10/2024 10:36 AM CDT Temperature 36.7 ??C (98.1 ??F) 06/10/2024 10:36 AM C DT Respiratory Rate 16 06/10/2024 10:36 AM CDT Oxygen Saturation 100% 06/10/2024 10:36 AM CDT Inhaled Oxygen Concentration - - Weight 97.6 kg (215 lb 3.2 oz) 06/10/2024 10:36 AM CDT Height 167.6 cm (5' 6 ) 06/10/2024 10:36 AM CDT Body Mass Index 34.73 06/10/2024 10:36 AM CDT Plan of Treatment Upcoming Encounters Date Type Department Care Team (Late st Contact Info) Description 11/01/2024 8:45 AM NETWORK MANAGER Office Visit [facility] THREE [facility] [address] [place], [place] [phone] Art Rao MD Three [facility]. [facility] [address] [place] [address] Health Maintenance Due Date Last Done Comments Cervical Cancer Screening Pap Smear (Age 30 to 64) Every 3 Years 1992 Annual Physical 11/29/1995 Pneumococcal Vaccine: Pediatrics (0 to 5 Years) and At-Risk Patients (6 to 64 Years) (1 of 2 - PCV) 1998 Hepatitis C 2010 Cervical Cancer Screening Pap with HPV Testing (Age 30 to 64) Every 5 Years 2022 Cervical Cancer Screening with HPV 2022 COVID-19 Vaccine ( season) 2024 09/16/2021, 11/20/2020, 10/20/2020 Influenza Adult (#1) 2024 08/07/2023, 10/02/2021, 07/29/2016 PHQ-2 (Physician [place]) 09/28/2024 06/10/2024 DTaP, Tdap and Td Vaccines (11 - Td or Tdap) 11/07/2033 11/07/2023, 06/15/2017, 05/18/2007, Additional history exists Hepatitis B Vaccines Completed 02/23/2003, 02/23/2003, 02/23/2003, Additional history exists Meningococcal B Vaccine Completed 01/26/2015, 05/18 Meningococcal Vaccine Aged Out 01/26/2015 , 01/26/2015, 05/18/2007, Additional history exists No longer eligible based on patient's age to complete this topic HPV Vaccines Aged Out No longer eligi ble based on patient's age to complete this topic RSV Immunizations Under 20 Months Aged Out No longer eligible based on patient's age to complete this topic Medical Devices Implanted Type Area Classified Advertising Clerk Device Identifier Shelf Expiration Date Model / Serial / Lot Implantable Loop Recorder-08/12 Implanted:07/29 by Art Rao MD (Quantity not on file) Implantable Loop Recorder Left: Chest Wall [employer] CARDIAC RHYTHM AND HEART FAILURE - DIV M [id number] / [id number] / Insurance Care Teams Banking Services Advisor Relationship Specialty Start Date End Date Dinah Mcintosh MD [address] [place] [address] PCP - General FAMILY PRACTICE 05/29/24 Gerard Olson MD [address] [place] [address] E LEARNING COORDINATOR ONCOLOGY 05/18/19 Art Rao MD [address] [address] EP Pipeline Integrity Engineer CARDIOVASCULAR DISEASE 06/01/19
--- OUTSIDE RECORDS SUMMARY | 2024-10-25 12:35 | XMS_ITS | Encounter Summary ---
Author Organization [facility] Address [address] [place] [address]. [place] [address] [place] [address] Care Team Providers Care Meter Repairer Name Role Phone Jess Sosa [facility] Primary Care Provider [phone] Gerard Olson MD Unavailable [phone] [facility] Services[facility] maki MD Unavailable [phone] Dinah Mcintosh MD Primary Care Provider [phone] Encounter Details Date Type Department Care Team (Late st Contact Info) Description 11/08/2019 MyChart Message Enc [facility] Medical Group Family Medicine [facility] [address] [place] [address] Jess Sosa [facility] [address] [place] [address] RE: Question Social History Tobacco [...] Start Date Job 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 [place] [address] [place] [address] documented as of this encounter Visit Diagnoses Not on filedocumented in this encounter Care Teams Meter Repairer Relationship Specialty Start Date End Date Jess Sosa [facility] [address] [place] [address] PCP - General NURSE PRACTITIONER 11/10/18 05/28/24 Dinah Mcintosh MD [address] [place] [address] PCP - General FAMILY PRACTICE 05/29/24 Gerard Olson MD [address] [place] [address] TELESALES SPECIALIST ONCOLOGY 05/18/19 Art Rao MD Three [facility]. [place] [address] [place] [address] EP Nanotechnology Engineering Technologist CARDIOVASCULAR DISEASE 06/01/19 documented as of this encounter
--- OUTSIDE RECORDS SUMMARY | 2024-10-25 12:35 | XMS_ITS | Encounter Summary ---
Author Organization [facility] Address Critical access hospital[facility]. [place], [place] [address] [place] [address] Care Team Providers Care Supervisor Net Making Name Role Phone [facility] Primary Care Provider [phone] Gerard Olson MD Unavailable [phone] [employer] maki MD Unavailable [phone] Dinah Mcintosh MD Primary Care Provider [phone] Encounter Details Date Type Department Care Team (Late st Contact Info) Description 03/25/2023 MyChart Message Enc [facility] Medical Group - [facility] [address] [place] [address] [facility] Provider Air Quality Message Social History Tobacco Use Types Packs/Day Years [...] Industry 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 [place] [address] [place] [address] documented as of this encounter Visit Diagnoses Not on filedocumented in this encounter Care Teams Supervisor Net Making Relationship Specialty Start Date End Date Jess Sosa [facility] [address] [place] [address] PCP - General NURSE PRACTITIONER 11/10/18 05/28/24 Dinah Mcintosh MD [address] [place] [address] PCP - General FAMILY PRACTICE 05/29/24 Gerard Olson MD [address] [place] [address] LOSS PREVENTION SUPERVISOR ONCOLOGY 05/18/19 Art Rao MD [facility]. [place] [address] [place] [address] EP Services Account Manager CARDIOVASCULAR DISEASE 06/01/19 documented as of this encounter
--- OUTSIDE RECORDS SUMMARY | 2024-10-25 12:35 | XMS_ITS | Encounter Summary ---
Author Organization [facility] Address [address] [place] [address]. [place] [address] [place] [address] Care Team Providers Care Cage Tender Name Role Phone [facility] Primary Care Provider [phone] Gerard Olson MD Unavailable [phone] [facility] Unavailable [phone] Dinah Mcintosh MD Primary Care Provider [phone] Encounter Details Date Type Department Care Team (Late st Contact Info) Description 10/22/2020 [employer] Message Enc [facility] [address] [place], [facility] Provider Missed Carelink Transmission Social History Tobacco Use Types Packs/Day Years [...] Start Date 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 No / Unsure 10/09/2020 2:40 PM PERSONNEL ADVISER documented as of this encounter Plan of Treatment Upcoming Encounters Date Type Department Care Team (Late st Contact Info) Description 11/01/2024 8:45 AM PERSONNEL ADVISER Office Visit [facility] THREE [facility] [place] [address] [place], [place] [phone] Art Rao MD [facility]. [place] [address] [place], [place] [phone] documented as of this encounter Visit Diagnoses Not on filedocumented in this encounter Care Teams Cage Tender Relationship Specialty Start Date End Date Jess [facility] [address] [place] [address] PCP - General NURSE PRACTITIONER 11/10/18 05/28/24 Dinah Mcintosh MD [address] [place] [address] PCP - General FAMILY PRACTICE 05/29/24 Gerard Olson MD [address] [place] [id number] FACILITY PLANNER ONCOLOGY 05/18/19 Art Rao MD [facility]. [place] [address] [place], [place] [address] EP Secretary To The Vice President CARDIOVASCULAR DISEASE 06/01/19 documented as of this encounter
--- OUTSIDE RECORDS SUMMARY | 2024-10-25 12:35 | XMS_ITS | Clinical Summary ---
Author Organization [facility] Address [address] [place] [address] Phone Care Team Providers Care Rf Test Technician Name Role Phone Unavailable Primary Care Provider Unavailabl e Allergies No known active allergies Medications phenazopyridine 95 mg Tablet Take 95 mg by mouth 3 times daily after meals. Active Active Problems Problem Noted Date Diagnosed Date Tobacco use 08/27/2015 Social History Tobacco Use Types Packs/Day Years Used Date Smoking Tobacco: Every Day Comments Unknown Sex and Gender Information Value Date Recorded Sex Assigned at Not on file Legal Sex Female 12:13 AM DOOR BUILDER Gender Identity Not on file Sexual Orientation Not on file Last Filed Vital Signs Vital Sign Reading Time Taken Comments Blood Pressure 116/89 08/27/2015 3:14 AM DOOR BUILDER Pulse - - Temperature 36.2 ??C (97.1 ??F) 08/27/2015 3:[address] Respiratory Rate 20 08/27/2015 3:14 AM DOOR BUILDER Oxygen Saturation 100% 08/27/2015 3:14 AM DOOR BUILDER Inhaled Oxygen Concentration - - Weight 68 kg (150 lb) 08/27/2015 12:22 AM DOOR BUILDER Height 167.6 cm (5' 6 ) 08/27/2015 12:22 AM DOOR BUILDER Body Mass Index 24.21 08/27/2015 12:22 AM DOOR BUILDER Plan of Treatment Health Maintenance Due Date Last Done Comments DTAP/TDAP/TD VACCINES (2 - Tdap) 11/29/2011 02/11/1993 CERVICAL CANCER SCREENING 2022 INFLUENZA VACCINE (#1) 2024 HEPATITIS B VACCINES Completed 02/23/2003, 04/19/1998, 05/04/1997 HPV VACCINES Aged Out No longer eligi ble based on patient's age to complete this topic PNEUMOCOCCAL VACCINE 0-64 YEARS Aged Out No longer eligible b ased on patient's age to complete this topic
--- OUTSIDE RECORDS SUMMARY | 2024-10-25 12:35 | XMS_ITS | Encounter Summary ---
Author Organization [facility] Address [address] [place] [address]. [place] [address] [place] [address] Care Team Providers Care Industrial Accountant Name Role Phone Jess Sosa [facility] Primary Care Provider [phone] Gerard Olson MD Unavailable [phone] [facility] Unavailable [phone] Dinah Mcintosh MD Primary Care Provider [phone] Encounter Details Date Type Department Care Team (Late st Contact Info) Description 10/04/2020 ContractRoomt Message Enc [facility] Medical Group Family Medicine [facility] [address] [place] [address] Jess Sosa [facility] [address] [place] [address] RE: Question Social History Tobacco [...] Start Date Job End Date [employer]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 Unable to assess 09/18/2020 4:04 PM DISPATCHER RADIO documented as of this encounter Plan of Treatment Upcoming Encounters Date Type Department Care Team (Late st Contact Info) Description 11/01/2024 8:45 AM DISPATCHER RADIO Office Visit [facility], [place] [address] [place], [place] [id number] Art Rao MD [facility]. [place] [address] [place], [place] [id number] documented as of this encounter Visit Diagnoses Not on filedocumented in this encounter Care Teams Industrial Accountant Relationship Specialty Start Date End Date [facility] [address] [place] [address] PCP - General NURSE PRACTITIONER 11/10/18 05/28/24 Dinah Mcintosh MD [address] [place] [address] PCP - General FAMILY PRACTICE 05/29/24 Gerard Olson MD [address] [place], [place] [id number] DIRECTOR OF APPLICATION DEVELOPMENT ONCOLOGY 05/18/19 Art Rao MD [facility]. [place] [address] [place] [address] EP Asphalt Distributor Operator CARDIOVASCULAR DISEASE 06/01/19 documented as of this encounter
--- OUTSIDE RECORDS SUMMARY | 2024-10-25 12:35 | XMS_ITS | Encounter Summary ---
Author Organization [facility] Address [address] [place] [address]. [place] [address] [place] [address] Care Team Providers Care Historic Sites Supervisor Name Role Phone [facility] Primary Care Provider [phone] Gerard lOson MD Unavailable [phone] [facility] m[facility] MD Unavailable [phone] Dinah Mcintosh MD Primary Care Provider [phone] Encounter Details Date Type Department Care Team (Late st Contact Info) Description 10/12/2020 Atreo Medical Message Enc [facility] [facility]'[address] [address] [place], 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 No / Unsure 10/09/2020 2:40 PM GUIDE DOG INSTRUCTOR documented as of this encounter Plan of Treatment Upcoming Encounters Date Type Department Care Team (Late st Contact Info) Description 11/01/2024 8:45 AM GUIDE DOG INSTRUCTOR Office Visit [facility] THREE [facility], [place] [address] [place] [address] Art Rao MD Three [facility]. [place] [address] [place] [address] documented as of this encounter Visit Diagnoses Not on filedocumented in this encounter Care Teams Historic Sites Supervisor Relationship Specialty Start Date End Date [facility] [address] [place] [address] PCP - General NURSE PRACTITIONER 11/10/18 05/28/24 Dinah Mcintosh MD [address] [place] [address] PCP - General FAMILY PRACTICE 05/29/24 Gerard Olson MD [address] [place], [place] [id number] COMMITTEE MEMBER ONCOLOGY 05/18/19 Art Rao MD [facility]. [place] [address] [place] [address] EP Emissions Testing And Repair Technician CARDIOVASCULAR DISEASE 06/01/19 documented as of this encounter
--- OUTSIDE RECORDS SUMMARY | 2024-10-25 12:35 | XMS_ITS | CONTINUITY OF CARE DOCUMENT ---
Author Name grace, rolandjose carlos Address Unknown Organization [facility] Address [address] [place] [address] Phone [phone] Care Team Providers Care Chief Concierge Name Role Phone Nancy DAUGHERTY, [facility] Unavailable [phone] LISA LUNA Unavailable LISA LUNA Unavailable INSURANCE PROVIDERS Payer name Policy type / Coverage type Crete red green party ID [facility] [id number]
--- OUTSIDE RECORDS SUMMARY | 2024-10-25 12:35 | XMS_ITS | Encounter Summary ---
Author Organization [facility] Address [address] [place] [address]. [place] [address] [place] [address] Care Team Providers Care Social Work Professor Name Role Phone Jess Sosa [facility] Primary Care Provider [phone] Gerard Olson MD Unavailable [phone] [facility] Unavailable [phone] Dinah Mcintosh MD Primary Care Provider [phone] Encounter Details Date Type Department Care Team (Late st Contact Info) Description 07/20/2020 Emprego Ligado Message Enc [facility] Medical Group Family Medicine [facility] [address] [place] [address] Jess Sosa [facility] [address] [place] [address] RE: Question Social History Tobacco [...] Start Date Job 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 Unable to assess 06/26/2020 3:55 PM CDT documented as of this encounter Plan of Treatment Upcoming Encounters Date Type Department Care Team (Late st Contact Info) Description 11/01/2024 8:45 AM FONDANT COOKER Office Visit [facility], [place] [address] [place], [place] [phone] Art Rao MD [facility]. [place] [address] [place], [place] [id number] documented as of this encounter Visit Diagnoses Not on filedocumented in this encounter Care Teams Social Work Professor Relationship Specialty Start Date End Date Jess [facility] [address] [place] [address] PCP - General NURSE PRACTITIONER 11/10/18 05/28/24 Dinah Mcintosh MD [address] [place] [address] PCP - General FAMILY PRACTICE 05/29/24 Gerard Olson MD [address] [place], [place] [id number] MANAGER PROGRAM MANAGEMENT ONCOLOGY 05/18/19 Art Rao MD [facility]. [place] [address] [place], [place] [address] EP Finance Accounting Internship CARDIOVASCULAR DISEASE 06/01/19 documented as of this encounter
--- OUTSIDE RECORDS SUMMARY | 2024-10-25 12:35 | XMS_ITS | Data Portability ---
Author Organization [place] [facility] [facility] Address [address] [place] [address] Assessment No assessment recorded. Plan of Treatment Reminders Order Date Submit Date Provider Last Modified By Organization Details Last Modified Time Details Appointments None recorded. Lab None recorded. Referral None recorded. Procedures None recorded. Surgeries None recorded. Imaging None recorded. Medication Orders Lidocaine Viscous 2 % mucosal solution 2023 024 [id number], [address] , [place], [place], [id number], 10:32:59 Patient TargetsNo targets recorded. Patient Instructions Encounter Date Encounter Id Patient Instructions Last Modified By Organization Details Last Modified Time 09/08/[id number] upper respirator y infection (cold): care instructions edahir Not available 09/08/2024 10:32:37 Symptom Management: To help manage your symptoms, you can use kkjz-ndj-effktww medications like Tylenol or ibuprofen for pain and fever relief. Additionally, I will prescribe Lidocaine swish solution to help ease your throat pain. Use 10 ml every three hours as needed to relieve discomfort. Additional Care Recommendations: Continue to drink plenty of fluids and consider doing warm saltwater gargles to soothe your throat. If your condition worsens or your symptoms persist beyond a few days, it is essential to follow up with your primary care physician or visit a local urgent care for further evaluation. Follow-Up Actions: - Use the Lidocaine swish to control throat pain. - Take Tylenol or ibuprofen as needed for fever and aches. - Stay hydrated and perform salt water gargles. - Consult your primary care doctor or urgent care if symptoms worsen. edahir Not available 09/08/2024 10:32:36 Reason for Referral None Reported. Medical Equipment None Reported. Allergies No known drug allergies Medications Name Sig Start Date Stop Date Status Note LastModified by Organization Details LastModified Time Lidocaine Viscous 2 % mucosal solution Swish and spit 10ml every 3 hours as needed for throat pain; max 8 doses/24hrs . Do not eat or chew gum for 60 minutes following use. 024 active Not Available Not Available Not Avai lable Vitals None Recorded Social History None recorded. Functional Status None recorded. Mental Status None recorded. Family History Nothing Reported. Medical History No medical history recorded. Gynecological HistoryNo gynecological history recorded. Obstetrics History GPAL:G 0 P 0 0 0 0 Past Encounters Encounter ID Performer Location Encounter Start Date Encounter Closed Date Diagnosis/Indication Diagnosis SNOMED-CT Code Diagnosis ICD10 Code Diagnosis Note [id number] NIR [facility] [address] [facility] [place] [address] 09/08/2024 10:21:23 09/08/2024 16:26:28 Acute upper respiratory infection 92326124 J06.9 Acute upper respirator y infection - Suggested by the combinatio n of symptoms including sore throat, low-grade fever, ear aches, and congestion , without confirmati on of strep throat despite patient concern. - I recommende d Tylenol or ibuprofen for pain and fever management .- Prescribed lidocaine swish, 10 mL every 3 hours as needed, to alleviate throat pain.- Advised the patient to stay hydrated with fluids and perform water gargles.- Suggested follow-up with primary care or local urgent care if symptoms worsen for further testing. Health Concerns Section Related Observation LastModified by Organization Detai ls LastModified Time None Recorded Concern Status LastModified by Organization Details LastModified Time None Recorded Advance Directives Directive None Recorded Payers Encounter Date Sequence Insurance Name Policy Number Policy Lockhart Covered Member ID Lockhart Member ID Guarantor Name 09/08/2024 1 [facility] [id number] Jordi Chavirasarah [id number] Jordi Caitsarah 09/08/2024 3 *SELF PAY* [id number] Jordi Caitsarah [id number] Jordi Caitsarah Notes Date Note Type Note Provider Name and Address Organization Details Recorded Time 09/08/2024 text/html Call connected, patient greeted. Patient name, , telephone number, and location verified verbally with the patient. Telemedicine limitations reviewed, answered all questions the patient had about the telehealth interaction, and verbal consent obtained to treat. Clinician attests they are physically located in the following state at the time of visit: [place] The patient also consents to the use of Private Outlet scribe technology. CC: Sore throat and ear pain for four days HPI: The patient presents with a four-day history of a worsening sore throat that began suddenly upon waking. Alongside the sore throat, they have experienced bilateral ear pain and nasal congestion. The patient reports a low-grade fever persisting for the past 48 hours, with a maximum temperature of approximately 100? ? ?F. The patient suspects strep throat. There is no reported exposure to COVID-19, and the patient confirms negative results on COVID-19 tests. Furthermore, the patient denies any significant loss of taste or smell. The patient's symptoms are aggravated by the scratchiness of the throat, contributing to a cough that began approximately 30 minutes before the visit. The cough is described as non-productive, primarily triggered by throat irritation. The patient confirms using bkzc-vxx-filvezd Tylenol for symptomatic relief, without attempting ibuprofen. They express that while Tylenol offers some relief, the sore throat persists. The patient denies any chest congestion. No recent travel history or exposure to known allergens is reported. NIR U[facility]ina [address] [place] [address], [place], [address], [facility] 09/08/2024 10:34:05 OBGyn Episode No OBEpisode recorded.
--- OUTSIDE RECORDS SUMMARY | 2024-10-25 12:35 | XMS_ITS | Encounter Summary ---
Author Organization [facility] Address [address] [place] [address]. [place] [address] [place] [address] Care Team Providers Care Home Health Aide Name Role Phone [facility] Primary Care Provider [phone] Gerard Olson MD Unavailable [phone] [facility] Unavailable [phone] Dinah Mcintosh MD Primary Care Provider [phone] Encounter Details Date Type Department Care Team (Late st Contact Info) Description 09/20/2020 iSnap Message Enc [place] [facility] [address] Mychart, [facility] Provider Disconnected Carelink since 09/04/20 letter 1 Social History Tobacco Use Types Packs/Day Years [...] 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 Unable to assess 09/18/2020 4:04 PM LOOPER OPERATOR documented as of this encounter Plan of Treatment Upcoming Encounters Date Type Department Care Team (Late st Contact Info) Description 11/01/2024 8:45 AM LOOPER OPERATOR Office Visit [facility] THREE [facility], [place] [address] [place] [address] Art Rao MD Three [facility]. [place] [address] [place], [place] [phone] documented as of this encounter Visit Diagnoses Not on filedocumented in this encounter Care Teams Home Health Aide Relationship Specialty Start Date End Date Jess Sosa [facility] [address] [place] [address] PCP - General NURSE PRACTITIONER 11/10/18 05/28/24 Dinah Mcintosh MD [address] [place] [address] PCP - General FAMILY PRACTICE 05/29/24 Gerard Olson MD [address] [place], [place] [id number] INDUSTRIAL ENGINEERING TECHNOLOGIST ONCOLOGY 05/18/19 Art Rao MD Three [facility]. [address] [address] [place] [address] EP Hand Washer CARDIOVASCULAR DISEASE 06/01/19 documented as of this encounter
--- OUTSIDE RECORDS SUMMARY | 2024-10-25 12:36 | XMS_ITS | Clinical Summary ---
Author Organization [facility] [address] Address [address] [place] [address] Care Team Providers Care Consulting Services Associate Name Role Phone Unavailable Primary Care Provider Unavailabl e Source Comments [facility] [address],non-owned Affiliates and Associated Physician Practices is amultiple site organization consisting of ambulatory clinics and hospital sitesin [place], [place], [place] and [place]. This disclosure is being madepursuant to the Care Everywhere program and may not contain all information available regarding this patient. Last updated 18.[facility] [address] Allergies Active Allergy Reactions Criticality Noted Date Comments Contrast-Iodinated Agents For Ct/Other Other 04/08/2020 Hot feeling Medications * Be aware that medications may not be up to date on this document. Alwaysverify current medications with the patient. Medication Sig Dispensed Refills Start Date End Date Status metroNIDAZOLE (FLAGYL) 500 MG tablet Take 500 mg by mouth every 8 hours Active metroNIDAZOLE (METROGEL EX) by Apply externally route as needed Active clindamycin (CLEOCIN) 2 % vaginal cream Insert 1 applicator into the vagina as needed Active metoprolol tartrate (LOPRESSOR) 25 MG tablet Take 25 mg by mouth 2 times daily Active ALBUTEROL SULFATE ER PO Take by mouth as needed Active Probiotic Product (PROBIOTIC PO) Active Active Problems Problem Noted Date Diagnosed Date Anxiety 04/12/2021 Gastroesophageal reflux disease 04/12/2021 Mixed hyperlipidemia 05/18/2019 Hypertension, essential, benign 01/14/2018 Immunizations Name Administration Dates Next Due Covid Pfizer primary monoval ent 12+ yr 0.3mL Purple cap 11/20/2020,10/20/2020 Family History Medical History Relation Name Comments Depression Brother Depression Father Hyperlipidemia Father Hypertension Father COPD - Chronic Obstructive Pulmonary Disease Maternal Grandfather CAD (Coronary Artery Disease) Maternal Grandmother COPD - Chronic Obstructive Pulmonary Disease Maternal Grandmother CVA Maternal Grandmother Diabetes - Type 2 Maternal Grandmother Renal Disease Maternal Grandmother CAD (Coronary Artery Disease) Mother Hyperlipidemia Mother CAD (Coronary Artery Disease) Paternal Grandfather Heart Failure Paternal Grandfather CAD (Coronary Artery Disease) Paternal Grandmother CVA Paternal Grandmother DVT - Deep Vein Thrombosis Paternal Grandmother Depression Paternal Grandmother Hepatitis Paternal Grandmother Pulmonary Embolism Paternal Grandmother Relation Name Status Comments Brother Alive Father Alive Maternal Grandfather Alive Maternal Grandmother Mother Alive Paternal Grandfather Paternal Grandmother Social History Tobacco Use Types Packs/Day Years Used Date Smoking Tobacco: Former Cigarettes 1 7 Smokeless Tobacco: Never Alcohol Use Standard Drinks/Week Comments Yes 0 (1 standard drink = 0.6 oz pur e alcohol) once per week Sex and Gender Information Value Date Recorded Sex Assigned at Not on file Gender Identity Not on file Sexual Orientation Not on file Last Filed Vital Signs Vital Sign Reading Time Taken Comments Blood Pressure 132/80 05/06/2021 1:16 PM CDT Pulse 84 04/08/2020 9:00 AM CDT Temperature 36.7 ??C (98.1 ??F) 04/08/2020 7:39 AM CD T Respiratory Rate 19 04/08/2020 9:00 AM CDT Oxygen Saturation 99% 04/08/2020 9:00 AM CDT Inhaled Oxygen Concentration - - Weight 85.7 kg (189 lb) 05/06/2021 1:16 PM CDT Height 167.6 cm (5' 6 ) 05/06/2021 1:16 PM CDT Body Mass Index 30.51 05/06/2021 1:16 PM CDT Plan of Treatment Health Maintenance Due Date Last Done Comments PAP SMEAR 1992 HIV SCREENING 11/29/2007 HEPATITIS C SCREENING 11/24/2010 DTAP/TDAP/TD VACCINES (1 - Tdap) 11/29/2011 HEPATITIS B VACCINE (1 of 3 - 19+ 3-dose series) 11/29/2011 COVID-19 VACCINE (2023-2 5 season) 2024 11/20/2020, 10/20/2020 INFLUENZA VACCINE (#1) 2024 DEPRESSION SCREENING 09/28/2024 ZOSTER VACCINE (1 of 2) 2042 HIB VACCINE Aged Out No longer eligi ble based on patient's age to complete this topic HPV VACCINE Aged Out No longer eligi ble based on patient's age to complete this topic MENINGOCOCCAL (Group B) VACCINE Aged Out No longer eligible b ased on patient's age to complete this topic MENINGOCOCCAL VACCINE Aged Out No taina edy eligible based on patient's age to complete this topic PNEUMOCOCCAL VACCINE Aged Out No long er eligible based on patient's age to complete this topic
--- OUTSIDE RECORDS SUMMARY | 2024-10-25 12:36 | XMS_ITS | Encounter Summary ---
Author Organization [facility] Address [address] [place] [address] Care Team Providers Care Vessel Slag Worker Name Role Phone Unavailable Primary Care Provider Unavailabl e Encounter Details Date Type Department Care Team (Late st Contact Info) Description 09/24/2020 Lab Requisition [facility] MICROBIOLOGY [address] [place] [address] Social History Tobacco Use Types Packs/Day Years Used Date Smoking Tobacco: Former Smokeless Tobacco: Never Alcohol Use Standard Drinks/Week Comments Yes 0 (1 standard drink = 0.6 oz pur e alcohol) once per week Sex and Gender Information Value Date Recorded Sex Assigned at Not on file Gender Identity Not on file Sexual Orientation Not on file documented as of this encounter Plan of Treatment Not on file documented as of this encounter Procedures Procedure Name Priority Date/Time Associated Diagnosis Comments SARS-COV-2 (COVID-19) IN HOUSE Routine 09/24/2020 11:30 AM CLIENT LEADER documented in this encounter Results * SARS-COV-2 (COVID-19) IN HOUSE (09/24/2020 11:30 AM CLIENT LEADER) COVID-19 PCR Not detected Not detected 09/24/2020 4:38 PM CLIENT LEADER [facility] MICROBIOLOGY Microbiology SPECIMEN FROM NASOPHARYNGEAL STRUCTURE / Unknown Collection / Unknown 09/24/2020 11:30 AM CLIENT LEADER 09/24/2020 1:38 PM CLIENT LEADER Narrative [facility]CROBIOLOGY - 09/24/2020 4:38 PM CLIENT LEADER This nucleic acid amplification assay performance was validated by [facility]. This test has been authorized by the Food and Drug administration (FDA)under an Emergency??Use Authorization (EUA). This test has been validated in accordance with the FDA's guidance document Policy for Diagnostic Testing in Laboratories Certified to perform High Complexity Testing under CLIA prior to Emergency Use Authorization for Coronavirus Disease-2019 during the Public Health Emergency issued on November 26, 2019. FDA independent review of this validation is pending. This test is only authorized for the duration of time the declaration that circumstances exist justifying the authorization of emergency use of in vitro diagnostic tests for detection of SARS-CoV-2 virus and/or diagnosis of COVID-19 infection under section 564(b)(1) of the Act, 21 U.S.C 360bbb-3 (b)(1), unless the authorization is terminated or revoked sooner. Fact Sheets for this EUA assay are available upon request. LAB - MICROBIOLOGY O RDERABLES [facility] MICROBIOLOGY [address] [place] [address], [facility] [phone] documented in this encounter Visit Diagnoses Not on filedocumented in this encounter Additional Health Concerns Infection Onset Date Last Indicated Resolved Time COVID-19 Under Investigation 09/24/2020 09/24/2020 09/24/2020 4:38 PM CLIENT LEADER documented as of this encounter
--- OUTSIDE RECORDS SUMMARY | 2024-10-25 12:36 | XMS_ITS | Encounter Summary ---
Author Organization [facility] Address [address] [place] [address] Care Team Providers Care Aviation Support Equipment Repairer Name Role Phone Unavailable Primary Care Provider Unavailabl e Encounter Details Date Type Department Care Team (Late st Contact Info) Description 07/29/2019 Lab Requisition [facility] [address] [place] [address] Tg Garcia, DO [address] [facility] [address] [place] [address] Social History Tobacco Use Types Packs/Day Years Used Date Smoking Tobacco: Never Assessed Sex and Gender Information Value Date Recorded Sex Assigned at Not on file Gender Identity Not on file Sexual Orientation Not on file documented as of this encounter Plan of Treatment Not on file documented as of this encounter Visit Diagnoses Not on filedocumented in this encounter Additional Health Concerns Infection Onset Date Last Indicated Resolved Time COVID-19 Under Investigation 09/24/2020 09/24/2020 09/24/2020 4:38 PM 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
--- OUTSIDE RECORDS SUMMARY | 2024-10-25 12:36 | XMS_ITS | Data Portability ---
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 Plan of Treatment Reminders Order Date Submit Date Provider Last Modified By Organization Details Last Modified Time Details Appointments None recorded. Lab None recorded. Referral None recorded. Procedures None recorded. Surgeries None recorded. Imaging None recorded. Medication Orders metformin 1,000 mg tablet 2022 023 [id number], [address] , [place], [place], [id number], 5 11:35:46 Pristiq 50 mg tablet,exte nded release 2022 023 [facility] #[id number], [address] , [place], [place], [id number], 5 11:35:32 metformin 850 mg tablet 2022 023 [facility] #[id number], [address] , [place], [place], [id number], 5 11:35:49 sertraline 50 mg tablet 2022 023 [facility] #[id number], [address] , [place], [place], [id number], 5 11:36:11 Patient TargetsNo targets recorded. Patient InstructionsNo instructions recorded. Reason for Referral None Reported. Problems Name Problem SNOMED Code Status Onset Date Resolution Date Notes Provider Name and Address Organization Details Recorded Time Insertio n of intraute rine contrace ptive device Completed 201810/22/2020 INSERTIO N OF IUD;Hu rded Elsewher e: No [facility] E[facility] Paper Coater andres: N Aretha ce ID: [id number] Real lable Time: 01:00:00 PM Valentine Hsu MD [address], [place], [address], [facility] 15:37:09 Pregnanc y test negative [id number] Completed 201810/22/2020 Encounte r for pregnanc y test, result negative ;Recorde d Elsewher e: No Locat ion: [facility] S ource: EHR Paper Coater andres: N Aretha ce ID: [id number] Real lable Time: 01:00:00 PM Valentine Hsu MD [address], [place], [address], [facility] 15:37:11 Acute vaginiti s [id number] Completed 201710/22/2020 Vulvovag initis;R ecorded Elsewher e: No Locat ion: [facility] S ource: EHR Paper Coater andres: Dane Carias ce ID: [id number] Real lable Time: 10:30:00 AM MD [address], [place], [address], [facility] 15:37:14 Educatio n Completed 201810/22/2020 Encounte r for family planning advice NOS;Hu rded Elsewher e: No Locat ion: [facility] S ource: EHR Paper Coater andres: Dane Carias ce ID: [id number] Real lable Time: 05:30:00 PM MD [address], [place], [address], [facility] 15:37:06 Problem Notes None recorded. Procedures Surgical History Date Name Laterality Status Provider Name and Address Organization Details Recorded Time 09/15/20 IUD Insertion completed Gerard Olson MD [address], [place], [address], [facility] 09/15/2022 15:56:38 09/28/19 implantation of insertable loop recorder completed Sharifa Nunes [facility] 10/14/2024 11:40:20 Dilation and Curettage completed Shaista Neal [facility] 06/11/2020 11:21:11 Imaging Results None recorded. Procedure Notes None recorded. Medical Equipment None Reported. Allergies No known drug allergies Medications Name Sig Start Date Stop Date Status Note LastModified by Organization Details LastModified Time amoxicill in 500 mg capsule TAKE 1 CAPSULE BY MOUTH 4 TIMES DAILY UNTIL GONE 08/18 completed Not Available Not Available Not Available Mirena 21 mcg/24 hr (up to 8 years) 52 mg intrauter ine device Take by intraute rine route. active Not Available Not Available No t Available methocarb carmita 500 mg tablet 01/22 completed Not Available Not Available Not Available metformin 500 mg tablet TAKE 1 TABLET BY MOUTH EVERY DAY 01/22 completed Not Available Not Available Not Available prednison e 10 mg tablet PLEASE SEE ATTACHED FOR DETAILED DIRECTIO NS 01/22 completed Not Available Not Available Not Available doxycycli ne hyclate 100 mg capsule take 1 capsule by oral route 2 times every day for 10 days 11/15 completed Not Available Not Available Not Available ketoconaz ole 2 % shampoo USE TO WASH SCALP 3 TIMES WEEKLY DIRECTED 01/22 completed Not Available Not Available Not Available trazodone 50 mg tablet 10/14 completed Not Available Not Available Not Available azithromy keren 250 mg tablet 01/02 completed Not Available Not Available Not Available fluconazo le 150 mg tablet take 1 tablet by oral route once every other week 10/22 completed Prescrib ed Elsewher e: No Locat ion: [facility] M odify By: [email or web address] n Encoun ter DateTime : 05/18/20 02:53:50 PM Not Available Not Available Not Available benzonata te 200 mg capsule 08/18 completed Not Available Not Available Not Available metronida zole 0.75 % (37.5 mg/5 gram) vaginal gel Insert 1 applicat orful twice a week by vaginal route for 5 days. 01/02 completed Not Available Not Available Not Available lisinopri l 20 mg tablet 01/22 completed Not Available Not Available Not Available methylpre dnisolone 32 mg tablet 01/02 completed Not Available Not Available Not Available prednison e 20 mg tablet 08/18 completed Not Available Not Available Not Available spironola ctone 100 mg tablet 10/14 completed Not Available Not Available Not Available metformin 850 mg tablet Take 1 tablet twice a day by oral route. 10/14 completed Not Available Not Available Not Available metronida zole 500 mg tablet take 1 tablet by oral route every 12 hours 01/02 completed Not Available Not Available Not Available ciproflox acin 500 mg tablet TAKE 1 TABLET BY MOUTH EVERY 12 HOURS FOR 7 DAYS 10/14 completed Not Available Not Available Not Available sulfameth oxazole 800 mg-trimet hoprim 160 mg tablet Take 1 tablet every 12 hours by oral route for 5 days. 08/18 completed Not Available Not Available Not Available triamcino lone acetonide 0.1 % topical cream 01/22 completed Not Available Not Available Not Available ketorolac 10 mg tablet TAKE 1 TABLET BY MOUTH EVERY 4 TO 6 HOURS FOR 5 DAYS NEEDED FOR PAIN. DO NOT EXCEED 4 DOSES PER 24 HOURS 10/14 completed Not Available Not Available Not Available alprazola m 0.25 mg tablet 10/14 completed Not Available Not Available Not Available diazepam 2 mg tablet TAKE 1-2 TABLETS BY MOUTH 30 MINUTES PRIOR TO PROCEDUR E 10/14 completed Not Available Not Available Not Available benzonata te 100 mg capsule 01/03 completed Not Available Not Available Not Available tacrolimu s 0.1 % topical ointment active Not Available Not Available Not Available metformin 1,000 mg tablet TAKE 1 TABLET BY MOUTH TWICE DAILY 10/14 completed Not Available Not Available Not Available misoprost ol [address] 5 tablets vaginall y - 1 time 10/22 completed Not Available Not Available Not Available metoprolo l tartrate 50 mg tablet take 1 tablet by oral route 2 times every day with meals 01/02 completed Prescrib erick Beck e: Yes Loca tion: [facility] M odify By: carlene gonzalez DateTime : 08/31/20 10:30:00 AM Not Available Not Available Not Available clindamyc in 2 % vaginal cream Insert 1 applicat orful twice a week by vaginal route. 08/18 completed Not Available Not Available Not Available mupirocin 2 % topical ointment APPLY A SMALL AMOUNT TO THE AFFECTED AREA BY TOPICAL ROUTE 3 TIMES PER DAY 08/18 completed Not Available Not Available Not Available methylpre dnisolone 4 mg tablets in a dose pack 08/18 completed Not Available Not Available Not Available albuterol sulfate HFA 90 mcg/actua tion aerosol inhaler INHALE 2 PUFFS BY MOUTH EVERY 4 HOURS UNTIL DIRECTED TO STOP 10/14 completed Not Available Not Available Not Available clobetaso l 0.05 % scalp solution APPLY TO SCALP TWICE DAILY NEEDED 10/14 completed Not Available Not Available Not Available sertralin e 50 mg tablet TAKE 1 TABLET BY MOUTH EVERY DAY 10/14 completed Not Available Not Available Not Available doxycycli ne hyclate 100 mg tablet 01/03 completed Not Available Not Available Not Available naproxen 500 mg tablet TAKE 1 TABLET BY MOUTH TWICE DAILY FOR 7 DAYS NEEDED FOR PAIN 10/14 completed Not Available Not Available Not Available diazepam 5 mg tablet 06/11 completed Not Available Not Available Not Available clindamyc in 1 % lotion 08/18 completed Not Available Not Available Not Available cyclobenz aprine 5 mg tablet 10/14 completed Not Available Not Available Not Available metoprolo l tartrate 25 mg tablet active Not Available Not Available Not Available albuterol sulfate 01/02 completed Not Available Not Available Not Available metoprolo l succinate 10/22 completed Not Available Not Available Not Available budesonid e-formote rol HFA 160 mcg-4.5 mcg/actua tion aerosol inhaler INHALE 2 PUFFS INTO THE LUNGS TWICE DAILY 01/22 completed Not Available Not Available Not Available desvenlaf axine succinate ER 50 mg tablet,ex tended release 24 hr TAKE 1 TABLET BY MOUTH EVERY DAY 10/14 completed Not Available Not Available Not Available Banophen 50 mg capsule 01/03 completed Not Available Not Available Not Available Kyleena 17.5 mcg/24 hr (up to 5 years) 19.5 mg intrauter ine device 10/22 [facility] odify By: carlene gonzalez DateTime : 11/09/19 01:00:00 PM Not Available Not Available Not Available Vitals Date Recorded Body height Body mass index (BMI) Body weight Systolic blood pressure Diastolic blood pressure Provider Name and Address Organization Details Last Updated DateTime 10/23/2022 165.1 cm 37.6 kg/m2 810170.8 8 g 134 mm[Hg] 91 mm[Hg] [facility] 3 14:33:59 Date Recorded Body height Body mass index (BMI) Body weight Systolic blood pressure Diastolic blood pressure Provider Name and Address Organization Details Last Updated DateTime 01/22/2023 165.1 cm 37.3 kg/m2 211676.6 9 g 137 mm[Hg] 90 mm[Hg] [facility] 3 14:59:20 Date Recorded Body height Body mass index (BMI) Body weight Systolic blood pressure Diastolic blood pressure Provider Name and Address Organization Details Last Updated DateTime 02/25/2023 165.1 cm 38.3 kg/m2 605019.2 5 g 135 mm[Hg] 92 mm[Hg] [facility] 3 16:10:05 Date Recorded Body height Body mass index (BMI) Body weight Systolic blood pressure Diastolic blood pressure Provider Name and Address Organization Details Last Updated DateTime 04/08/2023 165.1 cm 38.4 kg/m2 809827.8 4 g 134 mm[Hg] 93 mm[Hg] Shaista Neal [facility] 3 15:18:28 Date Recorded Body height Body mass index (BMI) Body weight Systolic blood pressure Diastolic blood pressure Provider Name and Address Organization Details Last Updated DateTime 10/14/2024 165.1 cm 37.9 kg/m2 198668.0 6 g 136 mm[Hg] 90 mm[Hg] Sharifa Nunes [facility] 5 11:34:52 Social History Question Answer Notes LastModified by Organizat ion Details LastModified Time Tobacco Smoking Status Never Smoker Brennan [email or web address], [facility] 01/22/2023 14:42:43 Do You Have An Advance Directive? No Information n ot available 01/03/2022 What Is Your Level Of Alcohol Consumption? Occasional Information not available 01/03/2022 Are You Blind Or Do You Have Difficulty Seeing? No Information n ot available 01/03/2022 What Is Your Level Of Caffeine Consumption? Moderate Information not available 01/03/2022 How Much Tobacco Do You Chew? None Information not available 01/03/2022 In The 14 Days Before Symptom Onset, Have You Had Close Contact With A Laboratory-confirm ed COVID-19 While That Case Was Ill? No Information n ot available 01/03/2022 In The 14 Days Before Symptom Onset, Have You Had Close Contact With A Person Who Is Under Investigation For COVID-19 While That Person Was Ill? No Information not available 01/03/2022 Have You Been To An Area Known To Be High Risk For COVID-19? No Information not available 01/03/2022 Are You Deaf Or Do You Have Serious Difficulty Hearing? No Information not available 01/03/2022 What Type Of Diet Are You Following? SPECIFIC Information n ot available 01/03/2022 What Is The Highest Grade Or Level Of School You Have Completed Or The Highest Degree You Have Received? [id number] Information not available 01/03/2022 Do You Use Protection During Sex? No Information not available 01/03/2022 Do You Use Your Seat Belt Or Car Seat Routinely? Yes Information not available 01/03/2022 Are You Sexually Active? Yes [email or web address] Information not available 01/22/2023 Do You Have Smoke And Carbon Monoxide Detectors In Your Home? Yes Information not available 01/03/2022 How Much Tobacco Do You Smoke? No Information not available 01/03/2022 Do You Feel Stressed (tense, Restless, Nervous, Or Anxious, Or Unable To Sleep At Night)? [id number] Information not available 01/03/2022 Do You Use Any Illicit Or Recreational Drugs? No [email or web address] Information not available 10/22/2020 Do You Use Sunscreen Routinely? Yes Information not available 01/03/2022 Have You Used IV Drugs? No Information not available 01/03/2022 Sex: Unknown Functional Status Question Answer Note LastModified by Organizat ion Details LastModified Time Do you have difficulty walking or climbing stairs? No Information not available 01/22/2023 Are you able to walk? YESWOREST Information not available 01/03/2022 Are you able to care for yourself? Yes [email or web address] Information not available 01/22/2023 Do you have difficulty dressing or bathing? No [email or web address] Information not available 01/22/2023 What is your exercise level? Occasional Information not available 01/03/2022 Mental Status None recorded. Family History Relationship Description Onset Age of this Age Resolved Age Notes LastModified by Organization Details LastModified Time Father Inflammatory disease of liver [email or web address] Not available 2022 16:10:23 Father Hypercholest erolemia [email or web address] Not available 2022 16:10:23 Father Hypertensive disorder [email or web address] Not available 2022 16:10:23 Father Heart disease [email or web address] Not available 2022 16:10:23 Paternal Grandfather Hypertensive disorder [email or web address] Not available 2022 16:10:23 Paternal Grandfather Malignant tumor of lung [email or web address] Not available 2022 16:10:23 Paternal Grandfather Hypercholest erolemia [email or web address] Not available 2022 16:10:23 Paternal Grandfather Malignant tumor of colon [email or web address] Not available 2022 16:10:23 Paternal Grandfather Heart disease [email or web address] Not available 2022 16:10:23 Maternal Uncle Diabetes mellitus [email or web address] Not available 2022 16:10:23 Paternal Grandmother Inflammatory disease of liver [email or web address] Not available 2022 16:10:23 Paternal Grandmother Heart disease [email or web address] Not available 2022 16:10:23 Paternal Grandmother Pulmonary embolism [email or web address] Not available 2022 16:10:23 Paternal Grandmother Genetic disease [email or web address] Not available 2022 16:10:23 Paternal Grandmother Hypercholest erolemia [email or web address] Not available 2022 16:10:23 Paternal Grandmother Malignant tumor of lung [email or web address] Not available 2022 16:10:23 Paternal Uncle Heart disease [email or web address] Not available 2022 16:10:23 Paternal Uncle Heart disease [email or web address] Not available 2022 16:10:23 Maternal Grandmother Diabetes mellitus [email or web address] Not available 2022 16:10:23 Medical History Condition Response Allergies (Food, seasonal, environmental ) Y Other Y Breast Cancer N Drug/Latex Allergies/Reactions N Blood Transfusion N Dermatologic Disorders Y Lung Disease N Defects or Inherited Disease N Breast Problem N Gestational Diabetes N Hematologic disorders N Anesthesia Complications N History of STI N Deep Vein Thrombosis N Polycystic ovary syndrome Y Anxiety Disorder Y Autoimmune disease N Arthritis N Infertility N Polyps Y Acid Reflux (GERD) N History of abnormal pap N Cancer N Stroke N Varicosities N Neurologic/Epilepsy N Endometriosis Y High Cholesterol N Headaches N Fibromyalgia N Kidney Disease N Heart Problems Y Kidney or Bladder Problems N Thyroid Problems N GI Problems N Eating Disorder N Anemia N Art (IVF or FET) N Psychiatric Illness Y Ovarian Cancer N Diabetes N Pulmonary (TB, Asthma) N Hepatitis/Liver Disease N No Past Medical History N Eczema Y Urinary Tract Infection N Abuse/Domestic Violence N Asthma Y Trauma/Violence N Depression/ depression Y Heart Disease N Pre-Eclampsia N Hypertension Y Osteoporosis N Thrombophilias N Gynecological History Statement/Question Response Flow Moderate Date of LMP 09/24/2024 Was last menstrual period normal N STIs/STDs N HPV Vaccine Y Current Control Method IUD Are cycles usually normal N Sexually Active? Y Menses Monthly Y Age of first menstrual cycle 14 Date of Last Pap Smear Sexual Problems? N LMP Definite Obstetrics History GPAL:G 2 P 0 0 2 0 Type Value Spontaneous 2 Living 0 Total 2 Past Encounters Encounter ID Performer Location Encounter Start Date Encounter Closed Date Diagnosis/Indication Diagnosis SNOMED-CT Code Diagnosis ICD10 Code Diagnosis Note [id number] Gerard Olson MD [place] [address] [address] 06/11/2020 11:04:33 06/11/2020 11:49:56 Irregular periods 07165202 N92.6 [id number] Kaitlynn Robert [place] [address],[facility] [place] [address] 06/27/2020 16:57:30 06/27/2020 17:35:33 Abnormal uterine bleeding 3344003111 9100 N93.9 [id number] Gerard Olson MD [place] [address],[facility] [place] [address] 06/27/2020 16:58:27 06/27/2020 20:13:57 Abnormal uterine bleeding 2854950895 9100 N93.9 Patient is a 29-year-ol d female who presents for ultrasound follow-up. She had a laboratory evaluation and ultrasound evaluation for abnormal uterine bleeding. I called the patient. She had to leave before her appointmen t started. We discussed the ultrasound findings and laboratory evaluation . The ultrasound is normal. The laboratory evaluation revealed an elevated DHEA-S. She is heavy. We did not talk about PCOS but she may be a PCOS patient given her weight. We talked about control of abnormal uterine bleeding. Talked about hormonal control. She is considerin g becoming . She is going to observe her bleeding. She will consider contacting us if her bleeding continues to be irregular. [id number] Delilah Gee [place] [address] [address] 08/14/2020 13:53:08 08/14/2020 17:02:12 Threatened miscarriage 64900395 O20.0 Z3A.01 [id number] [facility] [address],[place] [address] 08/21/2020 10:59:41 08/21/2020 12:30:56 Missed miscarriage 62248856 O02.1 Z3A.01 [id number] Gerard Olson MD [place] [address],[place] [address] 08/21/2020 11:28:44 08/21/2020 12:44:53 Missed miscarriage 75223935 O02.1 Z3A.01 this patient is a 29-year-ol d female presents for missed miscarriag e. We have agreed to perform suction D&C. She understand s the risks, benefits, and alternativ es. She has completed the informed consent process and is ready to proceed. [id number] [facility] [address],[place] [address] 10/22/2020 14:31:31 10/22/2020 15:20:24 Missed miscarriage 94044798 O02.1 Z3A.00 [id number] Valentine Hsu MD [place] [address],[place] [address] 10/22/2020 15:18:29 10/25/2020 16:59:13 Incomplete miscarriage 391207730 O03.4 Retained p roducts of conception 676156370 O72.2 [id number] Valentine Hsu MD [place] [address],[place] [address] 10/29/2020 09:24:10 10/29/2020 09:29:39 [id number] Gerard Olson MD [place] [address],[place] [address] 11/15/2020 16:40:50 11/16/2020 12:23:25 Missed miscarriage 70176331 O02.1 Z3A.01 Recurrent bacterial infection 551174524 A49.9 patient reports recurrent vaginal discharge that is foul smelling. This is a longstandi ng problem. She has tried multiple treatment regimens. We discussed Various approaches to the problem. We are using a expert recommenda tion of treating the initial infection and maintainin g a suppressiv e state. This will be done with a week of oral metronidaz ole and then twice weekly vaginal Metrogel. Abnormal u terine bleeding 4622846514 9100 N93.9 patient is had continued bleeding since the D&C for missed missed carriage. She needs ultrasound ed determine the possible etiology of her bleeding. [id number] [facility] [address] [address] 01/03/2022 11:00:11 01/03/2022 11:37:49 Labial cyst 054304169 N90.7 Labial cyst has resolved.W ill have these about every 5mos.We agreed to send Rx to have on hand in the event this recurrs. Time spent in visit is a total of 15 mins with at least 50% of visit consisting of counseling and review of plan of care.Addit ional precaution shirin measures were taken to minimize potential exposure to the Covid-19 virus during this patient? s visit, including available hand wire saw operator upon arrive, temperatur e check and being asked a series of screening questions. All staff wore face coverings during this encounter, as well as provided additional cleaning and sanitizing of all surfaces, including countertop s, pens, chairs, door handles, light switches, etc, prior to and following the patient? s visit. [id number] COLEMAN Thomas [place] [address] [address] 08/18/2022 15:35:11 08/19/2022 12:12:57 Irregular periods 16409371 N92.6 Today we agreed to update TVUS/labs for further evaluation of AUB/pelvic painShe does not have any current bleeding, declined repeat CBC as she has just had this done at PCP office and was WNL.Discus sed may need EMB pending u/s resultED precaution s discussedS TI testing declinedRT C for pelvic u/s and f/u appointmen t Abnormal u terine bleeding [id number] 9100 N93.9 Premenstru al dysphoric disorder 325443 F32.81 We discussed negative mood changes with her periods, discussed options to help with this. She will consider her optionsWil l await labs and can decide on treatment options at f/u appointmen Kwame ortega discussed BP elevated today, on HTN medication - patient states she is recovering for covid - has been checking BP at home. She currently has no symptoms. Encouraged patient to recheck BP at home and to notify PCP and cardiologi st with elevation as she will need to f/u with them. ED precaution s discussed. 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 Time spent in visit is a total of 30 mins with at least 50% of visit consisting of counseling and review of plan of care. [id number] Kaitlynn Robert [place] [address] [address] 09/03/2022 15:21:00 09/03/2022 17:02:31 Abnormal uterine bleeding [id number] 9100 N93.9 patient is had continued bleeding since the D&C for missed missed carriage. She needs ultrasound ed determine the possible etiology of her bleeding. [id number] Gerard Olson MD [place] [address] [address] 09/10/2022 16:34:13 09/10/2022 17:32:50 Polycystic ovary syndrome 297202520 E28.2 Anovular menstruation 27 289127 N93.8 Cyst of ovary 85534244 N 83.209 This patient is a 31-year-ol d female presents for abnormal uterine bleeding and ultrasound follow-up. She is irregularl y irregular/ anovulator y bleeding. She is obese. She does report some acne and some male pattern hair loss and some male pattern hair growth on her face. She had a laboratory evaluation that was normal but she has lot of the stigmata of PCOS including stridor a. . We talked about irregularl y irregular /anovulato ry bleeding in detail. We talked about PCOS in detail. Talked about the treatment and etiology and natural history of PCOS. Talked about protecting the endometriu m. We spent over 40 minutes face-to-fa ce. More than 50% was counseling . Talked about ovarian cyst. Talked about the etiology, natural history, treatment of ovarian cyst. She denies any pelvic pain. We agreed to placement of a Mirena IUD. We agreed to follow-up on the ovarian cyst. Patient is dealing with some alopecia and some eczema. She will follow-up for IUD insertion and also follow-up for metformin. We agreed to start metformin. Five hundred q.d. and then advanced to b.i.d.. [id number] Gerard Olson MD [facility] [address],[place] [address] 09/15/2022 14:52:27 09/15/2022 16:07:02 Contraception care management [id number] Z30.9 IUD inserted without complicati ons. She found it painful. [id number] Gerard Olson MD [facility] [address],[place] [address] 10/23/2022 14:25:37 10/23/2022 15:03:31 Polycystic ovary syndrome of bilateral ovaries [id number] E28.2 Contracept ion care management [id number] Z30.9 this patient is a 31-year-ol d female presents for follow-up on IUD. Her IUD appears normally placed. She does not have any complaints . She needs refills on her med for for PCOS. [id number] Gerard Olson MD [facility] [address],[place] [address] 01/22/2023 14:41:56 01/23/2023 15:05:15 Premenstrual dysphoric disorder [id number] F32.81 32-year-ol d female with polycystic ovarian syndrome and PMDD. We talked about metformin. She is tolerating it well. She is doing very well and feels much better on metformin. We will continue the current dose. We talked detail about her PMDD. She has a very severe case of premenstru al dysphoria. Excessive emotionali ty and labile mood. Effects work profoundly . She would like to be treated. We agreed to treat with Pristiq. She was given precaution s Pristiq. She will return in 1 month. We spent over 20 minutes face-to-fa ce. More than 50% was counseling . Polycystic ovary syndrome [id number] E28.2 [id number] Gerard Olson MD [facility] [address],[place] [address] 02/25/2023 15:58:30 02/25/2023 17:06:39 Polycystic ovary syndrome [id number] E28.2 32-year-ol d female presents for follow-up on PMDD and PCOS. Patient is tender Pristiq for her PMDD. She started the medication late and has not been able to have a episode of PMDD with the medication she about to have menses which she anticipate s PMDD. She is going to return on that in 6 weeks to discuss her last 2 menses. She would like to increase her metformin for PCOS. We talked about of in this occasion. Has is blood sugars but she wants to proceed with a higher dose. We are going to do 850 mg b.i.d. we spent over 20 minutes face-to-fa ce. More than 50% was counseling Premenstru al dysphoric disorder [id number] F32.81 [id number] Gerard Olson MD [facility] [address],[place] [address] 04/08/2023 15:13:18 04/08/2023 16:16:17 Premenstrual dysphoric disorder [id number] F32.81 this patient is 32-year-ol d female presents for follow-up on PMDD. She was treated with does venlafaxin e. She has not found it as affective as she had previously found Zoloft. She states she had some the personaliz ation with the previous treatment with Zoloft. That is why she did not want to do it at our last visit. But she is willing to try it now. Patient also has endometrio sis. She is considerin g medical treatment for endometrio sis that would include prep Lupron or Elagolix. this would also treat her PMDD. She is curious about that. These medication s would likely be covered with the endometrio sis diagnosis. We spent over 20 minutes face-to-fa ce. More than 50% was counseling . We agreed to start Zoloft. Week we also talked about treatment PCOS. She does appear to have real periods there is some irregulari ty from time to time however. Endometrio sis of pelvis [id number] N80.9 Dysmenorrhea [id number] N 94.6 Polycystic ovary syndrome [id number] E28.2 32-year-ol d female presents for follow-up on PMDD and PCOS. Patient is tender Pristiq for her PMDD. She started the medication late and has not been able to have a episode of PMDD with the medication she about to have menses which she anticipate s PMDD. She is going to return on that in 6 weeks to discuss her last 2 menses. She would like to increase her metformin for PCOS. We talked about of in this occasion. Has is blood sugars but she wants to proceed with a higher dose. We are going to do 850 mg b.i.d. we spent over 20 minutes face-to-fa ce. More than 50% was counseling [id number] Gerard Olson MD [facility] [address],[facility] [place] [address] 10/14/2024 10:54:08 10/14/2024 12:32:33 Breast lump [id number] N63.0 33-year-ol d female presents for breast problem. She reports increasing fullness and firmness of the inferior 2 quadrants of the left breast. It is slightly tender. She Reports a mass. She reports tenderness no new informatio n. She denies any redness of the skin. She denies any warmth of the skin. The exam is normal. Bilateral breast exam was performed and there are no palpable masses, there is perhaps some fullness to the inferior quadrants of the left breast. No erythema, no induration , no warmth, no tenderness . We agreed to image the left breast with ultrasound and mammograph y is recommende d by radiology Health Concerns Section Related Observation LastModified by Organization Detai ls LastModified Time None Recorded Concern Status LastModified by Organization Details LastModified Time None Recorded Advance Directives Directive N: Payers Encounter Date Sequence Insurance Name Policy Number Policy Lockhart Covered Member ID Lockhart Member ID Guarantor Name 10/23/2022 1 [employer] [id number] Jordi Ledesma [id number] Jordi Ledesma 01/22/2023 1 [place] [id number] Jordi Ledesma [id number] Jordi Ledesma 02/25/2023 1 [place] [id number] Jordi Ledesma [id number] Jodri Ledesma 04/08/2023 1 [facility]: (PPO) [id number] Jordi Ledesma [id number] Jordi Ledesma 10/14/2024 1 [facility] [id number] Jordi Ledesma [id number] Jordi Ledesma Notes Date Note Type Note Provider Name and Address Organization Details Recorded Time 10/23/2022 text/html this patient is a 31-year-old female presents for follow-up on IUD. Her IUD appears normally placed. She does not have any complaints. She needs refills on her med for for PCOS. Gerard Olson MD [address], [place], [address], [facility] 10/23/2022 15:01:54 01/22/2023 text/html 32-year-old allyson conner with polycystic ovarian syndrome and PMDD. We talked about metformin. She is tolerating it well. She is doing very well and feels much better on metformin. We will continue the current dose. We talked detail about her PMDD. She has a very severe case of premenstrual dysphoria. Excessive emotionality and labile mood. Effects work profoundly. She would like to be treated. We agreed to treat with Pristiq. She was given precautions Pristiq. She will return in 1 month. We spent over 20 minutes [id number]. More than 50% was counseling. Gerard Olson MD [address], [place], [address], [facility] 01/22/2023 23:30:07 02/25/2023 text/html 32-year-old allyson conner presents for follow-up on PMDD and PCOS. Patient is tender Pristiq for her PMDD. She started the medication late and has not been able to have a episode of PMDD with the medication she about to have menses which she anticipates PMDD. She is going to return on that in 6 weeks to discuss her last 2 menses. She would like to increase her metformin for PCOS. We talked about of in this occasion. Has is blood sugars but she wants to proceed with a higher dose. We are going to do 850 mg b.i.d. we spent over 20 minutes [id number]. More than 50% was counseling Gerard Olson MD [address], [place], [address], [facility] 02/25/2023 17:01:27 04/08/2023 text/html this patient is 32-year-old female presents for follow-up on PMDD. She was treated with does venlafaxine. She has not found it as affective as she had previously found Zoloft. She states she had some the personalization with the previous treatment with Zoloft. That is why she did not want to do it at our last visit. But she is willing to try it now. Patient also has endometriosis. She is considering medical treatment for endometriosis that would include prep Lupron or Elagolix. this would also treat her PMDD. She is curious about that. These medications would likely be covered with the endometriosis diagnosis. We spent over 20 minutes [id number]. More than 50% was counseling. We agreed to start Zoloft. Week we also talked about treatment PCOS. She does appear to have real periods there is some irregularity from time to time however. Gerard Olson MD [address], [place], [address], [facility] 04/08/2023 16:04:36 10/14/2024 text/html 33-year-old fema dalila presents for breast problem. She reports increasing fullness and firmness of the inferior 2 quadrants of the left breast. It is slightly tender. She Reports a mass. She reports tenderness no new information. She denies any redness of the skin. She denies any warmth of the skin. The exam is normal. Bilateral breast exam was performed and there are no palpable masses, there is perhaps some fullness to the inferior quadrants of the left breast. No erythema, no induration, no warmth, no tenderness. We agreed to image the left breast with ultrasound and mammography is recommended by radiology Gerard Olson MD [address], [place], [address], [facility] 10/14/2024 12:19:53 OBGyn Episode Ob Episode Information Episode Created Date Number of Fetuses Patient Bloodtype Patient rh Status Prepregnancy Weight lbs Domestic Partner Domestic Partner Phone Father Name Dining Room Busser Status 10/22/19 21 1 CLOSED Fetus Data First Name Last Name Admitted to NICU Weight (g) Sex Living Outcome Pediatric Complications Fetus ID Race Codes Race Delivery Type , Spontane ous [id number] Neptali Calculation Initial Neptali Date Initial Exam Date Initial Exam Provider Initial Ultrasound Date Last Menstrual Period Date Ultra Sound Weeks Gestation 0 Eighteen To Twenty Week Neptali Update Ultra Sound Date Fundal Height At Umbil Quickening Date Ultra Sound Latest Weeks Gestation Final Neptali Confirmed By Final Neptali Confirmed Date Final Neptali Date Ultra Sound Latest Days Gestation 0 0 Menstrual History Last Menstrual Date Menses Monthly On Bcp Conception Prior Menses Frequency Hcg Plus Date Menarche Onset Age Delivery Information Delivery Date Delivery Type Labor Anesthesia Weeks Gestation Incision Type Labor Labor Length Hrs Delivered By Post Complications Tubal Sterilization Discharge Date Comments 6 Discharge Information Feeding Method Contraceptive Method Maternal HG B and HCT Levels Ob Episode Information Episode Created Date Number of Fetuses Patient Bloodtype Patient rh Status Prepregnancy Weight lbs Domestic Partner Domestic Partner Phone Father Name Dining Room Busser Status 10/22/19 21 1 CLOSED Fetus Data First Name Last Name Admitted to NICU Weight (g) Sex Living Outcome Pediatric Complications Fetus ID Race Codes Race Delivery Type , Spontane ous [id number] Neptali Calculation Initial Neptali Date Initial Exam Date Initial Exam Provider Initial Ultrasound Date Last Menstrual Period Date Ultra Sound Weeks Gestation 0 Eighteen To Twenty Week Neptali Update Ultra Sound Date Fundal Height At Umbil Quickening Date Ultra Sound Latest Weeks Gestation Final Neptali Confirmed By Final Neptali Confirmed Date Final Neptali Date Ultra Sound Latest Days Gestation 0 0 Menstrual History Last Menstrual Date Menses Monthly On Bcp Conception Prior Menses Frequency Hcg Plus Date Menarche Onset Age Delivery Information Delivery Date Delivery Type Labor Anesthesia Weeks Gestation Incision Type Labor Labor Length Hrs Delivered By Post Complications Tubal Sterilization Discharge Date Comments 0 Discharge Information Feeding Method Contraceptive Method Maternal HG B and HCT Levels
--- OUTSIDE RECORDS SUMMARY | 2024-10-25 12:36 | XMS_ITS | Clinical Summary ---
Author Organization [facility] Address [address] [place] [address] Care Team Providers Care Misdraw Hand Name Role Phone Jess Sosa NP Primary Care Provider [phone]- [phone] Allergies Active Allergy Reactions Criticality Noted Date Comments Iodinated Contrast Media Other (See comments) Low 0 12/04/2021 Medications albuterol HFA (PROVENTIL HFA,VENTOLIN HFA,PROAIR HFA) 90 mcg/actuation inhaler Inhale 2 puffs every 6 (six) hours as needed 11/07/2021 Active budesonide-formo teroL (SYMBICORT) 160-4.5 mcg/actuation inhaler Inhale 2 puffs 2 (two) times a day 11/07/2021 Active traZODone (DESYREL) 50 mg tablet Take 50 mg by mouth daily 10/02/2021 Active metoprolol tartrate (LOPRESSOR) 25 mg immediate release tablet Take 25 mg by mouth 2 (two) times a day 06/24/2021 Active Active Problems Problem Noted Date Diagnosed Date Anxiety 04/12/2021 Gastroesophageal reflux disease 04/12/2021 Mixed hyperlipidemia 05/18/2019 Hypertension, essential, benign 01/14/2018 Tachycardia, unspecified 01/14/2018 Moderate persistent asthma without complication Surgical History Surgery Date Site/Laterality Comments DILATION AND CURETTAGE OF UTERUS 09/28/2019 - 09/27/2020 DILATION AND CURETTAGE OF UTERUS 09/28/2017 - 09/27/2018 Medical History Medical History Date Comments Hx Other Medical palpitations Family History Medical History Relation Name Comments Arrhythmia Mother 2 Arrhythmias; Relation Name Status Comments Mother 1 Alive Mother 2 Social History Tobacco Use Types Packs/Day Years Used Date Smoking Tobacco: Never Smokeless Tobacco: Never Alcohol Use Standard Drinks/Week Comments No 0 (1 standard drink = 0.6 oz pur e alcohol) Comments Unknown Sex and Gender Information Value Date Recorded Sex Assigned at Not on file Legal Sex Female 8:48 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 Gender Identity Not on file Sexual Orientation Not on file Obstetrics History Last Filed Vital Signs Vital Sign Reading Time Taken Comments Blood Pressure 139/99 12/04/2021 3:06 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 Pulse 118 12/04/2021 3:06 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 Temperature 36.8 ??C (98.2 ??F) 12/04/2021 3:06 PM CS T Respiratory Rate 20 12/04/2021 3:06 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 Oxygen Saturation 97% 12/04/2021 3:06 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 Inhaled Oxygen Concentration - - Weight 99.2 kg (218 lb 12.8 oz) 12/04/2021 3:06 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 Height 167.6 cm (5' 6 ) 12/04/2021 3:06 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 Body Mass Index 35.32 12/04/2021 3:06 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 Plan of Treatment Health Maintenance Due Date Last Done Comments Cervical Cancer Screening 1992 Depression Screening 1992 Hepatitis C Screening 1992 Pneumococcal vaccine <65 (1 of 2 - PCV) 1998 Regular Well Visit/Exam 18-64 2010 Covid-19 Vaccine ( season) 2024 09/16/2021, 11/20/2020, 10/20/2020 Influenza Vaccine (#1) 2024 10/02/2021, 2015 DTaP/Tdap/Td Vaccine (9 - Td or Tdap) 06/15/2027 06/15/2017, 05/18/2007, 05/18/2007, Additional history exists Varicella Vaccines Completed 06/15/2017, 0 04/19/1998, 03/06/1994 HPV Vaccines Aged Out No longer eligi ble based on patient's age to complete this topic Insurance [employer] Cl[employer] ACCESS CHOICE [employer] ACCESS CHOICE Care Teams Misdraw Hand Relationship Specialty Start Date End Date Jess Sosa NP [address] [place] [id number] PCP - General Nurse Practitioner 12/04/21
--- OUTSIDE RECORDS SUMMARY | 2024-10-25 12:36 | XMS_ITS | Encounter Summary ---
Author Organization [facility] Address [address] [place] [address] Care Team Providers Care Poultry Helper Name Role Phone Unavailable Primary Care Provider Unavailabl e Encounter Details Date Type Department Care Team (Late st Contact Info) Description 07/29/2019 Lab Requisition [facility] [address] [place] [id number] Tg Garcia DO [address] [facility] [address] [place] [address] Social History Tobacco Use Types Packs/Day Years Used Date Smoking Tobacco: Never Assessed Sex and Gender Information Value Date Recorded Sex Assigned at Not on file Gender Identity Not on file Sexual Orientation Not on file documented as of this encounter Plan of Treatment Not on file documented as of this encounter Procedures Procedure Name Priority Date/Time Associated Diagnosis Comments DERMATOPATHOLOGY Routine 07/28/2019 12:0 0 AM CDT documented in this encounter Results * DERMATOPATHOLOGY (07/28/2019 12:00 AM CDT) Case Report Dermatopathology Report ? Case: [id number] ? Authorizing Provider: ??Tg Garcia DO ?? Collected: ? 07/28/2019 12:00 AM ? Ordering Location: ? [facility] DermPath Lab ?Received: ?07/29/2019 11:50 AM ? Pathologist: ? Kennedi Monet MD ? Specimen: ?Skin, left upper back ? 3:10 PM [facility] DERMATOPATHOLOGY [facility]ORAT[facility] Final Diagnosis Specimen A. SKIN, left upper back: EPIDERMOID CYST WITH EVIDENCE OF RUPTURE (L72.0) 3:10 PM [facility] DERMATOPATHOLOGY [facility] Clinical History R/O cyst. 3:10 PM [facility]ERMATOPATHOLOGY [facility] Gross Description Specimen A: Received is one formalin filled container labeled with the patient's name and designated left upper back. The specimen consists of a punch measuring [id number], bisected. Jar 0. 3:10 PM [facility] DERMATOPATHOLOGY [facility]OR[facility] Microscopic Description Specimen A. SKIN, left upper back: Within the dermis, there is a space lined by epithelium that resembles normal epidermis and the infundibular portion of the hair follicle. Surrounding this is an infiltrate with neutrophils, histiocytes, and multinucleated giant cells. 3:10 PM [facility] DERMATOPATHOLOGY [facility]ORATORY Disclaimer An external and internal positive and negative controls are appropriate for the histochemical, immunohistochemical and immunofluorescence stain(s) in this case (if any), except where stated explicitly. The performance characteristics of the stain(s) cited in this report were developed and its performance characteristic determined by the Dermatopathology Laboratory at [facility], directed by Dr. Gigi Monet. These tests need not be, and therefore are not, approved by the [place] Food and Drug Administration. The tests are used for clinical purposes. Billing Codes Specimen Charges Stain Charges 57847 1 9 3:10 PM BUILDING INSPECTION ENGINEER DERMATOPATHOLOGY LABORATORY Embedded Images 9 3:10 PM BUILDING INSPECTION ENGINEER DERMATOPATHOLOGY LABORATORY Pathology/Cytolog y TISSUE SPECIMEN FROM SKIN / Unknown 07/28/2019 07/29/2019 11:50 AM CDT Tg Garcia DO LAB - PATHOLOGY/C YTOLOGY ORDERABLES DERMATOPATHOLOGY LABORATORY [facility] - Department of Dermatology [address] [place] [address] [address]th Floor Lab [address] [phone] documented in this encounter Visit Diagnoses Not on filedocumented in this encounter Additional Health Concerns Infection Onset Date Last Indicated Resolved Time COVID-19 Under Investigation 09/24/2020 09/24/2020 09/24/2020 4:38 PM BUILDING INSPECTION ENGINEER documented as of this encounter
--- OUTSIDE RECORDS SUMMARY | 2024-10-25 12:36 | XMS_ITS | Referral Summary ---
Author Organization [facility] Address [address] [place] [address] Care Team Providers Care Research Asst Name Role Phone Jess Sosa NP Primary Care Provider +1- [phone] Allergies Active Allergy Reactions Criticality Noted Date [...] unspecified 01/14/2018 Moderate persistent asthma without complication Social History Tobacco Use Types Packs/Day Years Used Date Smoking Tobacco: Never Smokeless Tobacco: Never Alcohol Use Standard Drinks/Week Comments No 0 (1 standard drink = 0.6 oz pur e alcohol) Comments Unknown Sex and Gender Information Value Date Recorded Sex Assigned at Not on file Legal Sex Female 8:48 PM REBAR FABRICATOR Gender Identity Not on file Sexual Orientation Not on file Last Filed Vital Signs Vital Sign Reading Time Taken Comments Blood Pressure 139/99 12/04/2021 3:06 PM REBAR FABRICATOR Pulse 118 12/04/2021 3:06 PM REBAR FABRICATOR Temperature 36.8 ??C (98.2 ??F) 12/04/2021 3:06 PM CS T Respiratory Rate 20 12/04/2021 3:06 PM REBAR FABRICATOR Oxygen Saturation 97% 12/04/2021 3:06 PM REBAR FABRICATOR Inhaled Oxygen Concentration - - Weight 99.2 kg (218 lb 12.8 oz) 12/04/2021 3:06 PM REBAR FABRICATOR Height 167.6 cm (5' 6 ) 12/04/2021 3:06 PM REBAR FABRICATOR Body Mass Index 35.32 12/04/2021 3:06 PM REBAR FABRICATOR Plan of Treatment Not on file Insurance [employer] Care Teams Research Asst Relationship Specialty Start Date End Date Jess Sosa NP [address] [place] [address] PCP - General Nurse Practitioner 12/04/21
--- OUTSIDE RECORDS SUMMARY | 2024-10-25 12:36 | XMS_ITS | Referral Summary ---
Author Organization [facility] Address [address] [place] [address] Care Team Providers Care Lawyers Name Role Phone Unavailable Primary Care Provider Unavailabl e Source Comments [facility],non-owned Affiliates and Associated Physician Practices is amultiple site organization consisting of ambulatory clinics and hospital sitesin [place], [place], [place] and [place]. This disclosure is being madepursuant to the Care Everywhere program and may not contain all information available regarding this patient. Last updated 18.[facility] Allergies Active Allergy Reactions Criticality Noted Date [...] ent 12+ yr 0.3mL Purple cap 11/20/2020,10/20/2020 Social History Tobacco Use Types Packs/Day Years [...] 05/06/2021 1:16 PM CDT Plan of Treatment Not on file
--- OUTSIDE RECORDS SUMMARY | 2024-10-25 12:36 | XMS_ITS | Patient Health Summary ---
Author Organization [facility] Address [address] [place] [address] Care Team Providers Care Handbell Choir Director Name Role Phone Unavailable Primary Care Provider Unavailabl e Note from [facility],non-owned Affiliates and Associated Physician Practices is amultiple site organization consisting of ambulatory clinics and hospital sitesin [place], [place]. This disclosure is being madepursuant to the Care Everywhere program and may not contain all information available regarding this patient. Last updated 18.[facility] Allergies * Contrast-Iodinated Agents For Ct/Other(Other) Medications * Be aware that medications may not be up to date on this document. Alwaysverify current medications with the patient. * metroNIDAZOLE (FLAGYL) 500 MG tablet Take 500 mg by mouth every 8 hours * metroNIDAZOLE (METROGEL EX) by Apply externally route as needed * clindamycin (CLEOCIN) 2 % vaginal cream Insert 1 applicator into the vagina as needed * metoprolol tartrate (LOPRESSOR) 25 MG tablet Take 25 mg by mouth 2 times daily * ALBUTEROL SULFATE ER PO Take by mouth as needed * Probiotic Product (PROBIOTIC PO) Active Problems Problem Noted Date Diagnosed Date Anxiety 04/12/2021 Gastroesophageal reflux disease 04/12/2021 Mixed hyperlipidemia 05/18/2019 Hypertension, essential, benign 01/14/2018 Immunizations * Covid Pfizer primary monovalent 12+ yr 0.3mL Purple cap(Given 11/20/2020, 10/20/2020) Social History Tobacco Use Types Packs/Day Years [...] Mass Index 30.51 05/06/2021 1:16 PM CDT Procedures * CULTURE YEAST(Performed 05/06/2021) Performed for History of candidiasis, Vaginal discharge * FUNGUS KIRK - POINT OF CARE (AMB) SLU(Performed 05/06/2021) Performed for History of candidiasis, Vaginal discharge * PH FLUID - POCT (AMB) SLU(Performed 05/06/2021) Performed for History of candidiasis, Vaginal discharge * WET PREP - POINT OF CARE (AMB) [facility](Performed 05/06/2021) Performed for History of candidiasis, Vaginal discharge * SARS-COV-2 (COVID-19) IN HOUSE(Performed 09/24/2020) * CARDIAC EKG ORDER(Performed 04/09/2020) * XR CHEST 2VW(Performed 04/08/2020) Performed for Near syncope * HCG BLOOD QUALITATIVE(Performed 04/08/2020) * D-DIMER(Performed 04/08/2020) * TSH REFLEX FREE T4(Performed 04/08/2020) * BASIC METABOLIC PANEL (CALCIUM TOTAL)(Performed 04/08/2020) * CBC W AUTO DIFFERENTIAL(Performed 04/08/2020) * EKG 12-LEAD(Performed 04/08/2020) Performed for Near syncope * DERMATOPATHOLOGY(Performed 07/28/2019) Results * CULTURE YEAST (05/06/2021 1:18 PM CDT) Culture Yeast with ID QUEST Comment: ??CULTURE, YEAST, W/IDENTIFICATION ?Micro Number: ?[id number] ??Test Status: ? Final ??Specimen Source: ?? Vulva ??Specimen Quality: ??Adequate ??Result: ?No fungal growth at 2 Weeks Test Performed at: [facility] [employer] ??[id number] BARRINGTON GOFF MD Microbiology ENTIRE VULVA / Unknown 05/06/2021 1:18 PM CDT 05/07/2021 3:55 AM CDT Glory Moss APRN-BRIMMING MACHINE OPERATOR LAB - MICRO BIOLOGY ORDERABLES [address] [address] * PH FLUID - POCT (AMB) SLU (05/06/2021) pH Vaginal 4.0 Fluid ENTIRE VAGINA / Unknown 05/06/2021 Glory Moss APRN-BRIMMING MACHINE OPERATOR LAB - POINT OF CARE ORDERABLES * WET PREP - POINT OF CARE (AMB) [facility] (05/06/2021) pH Wet Prep 4.0 Yeast Wet Prep no Trichomonas Wet Prep None Bacteria Wet Prep no occ lactobacill Whiff Test no BODY FLUID SPECIMEN / Unknown 05/06/2021 Glory Moss APRN-BRIMMING MACHINE OPERATOR LAB - POINT OF CARE ORDERABLES * FUNGUS KIRK - POINT OF CARE (AMB) [facility] (05/06/2021) KIRK Prep No Fluid BODY FLUID SPECIMEN / Unknown 05/06/2021 Glory Moss APRN-BRIMMING MACHINE OPERATOR LAB - POINT OF CARE ORDERABLES * SARS-COV-2 (COVID-19) IN HOUSE (09/24/2020 11:30 AM TRAUMA PROGRAM MANAGER) COVID-19 PCR Not detected Not detected 09/24/2020 4:38 PM TRAUMA PROGRAM MANAGER [facility] MICROBIOLOGY Microbiology SPECIMEN FROM NASOPHARYNGEAL STRUCTURE / Unknown Collection / Unknown 09/24/2020 11:30 AM TRAUMA PROGRAM MANAGER 09/24/2020 1:38 PM TRAUMA PROGRAM MANAGER Narrative [facility] MICROBIOLOGY - 09/24/2020 4:38 PM TRAUMA PROGRAM MANAGER This nucleic acid amplification assay performance was validated by [facility] Microbiology Laboratory. This test has been [...] upon request. LAB - MICROBIOLOGY O RDERABLES [facility] [address] [phone] * CARDIAC EKG ORDER (04/09/2020 2:51 PM CDT) Narrative 04/09/2020 2:51 PM CDT Ordered by an unspecified provider. Scanned Document CARDIAC SERVICES ORD ERABLES * XR CHEST PA AND LATERAL (04/08/2020 8:43 AM CDT) Anatomical Region Laterality Modality Chest Radiographic Magdalena ging 04/08/2020 8:52 AM CDT Narrative 04/08/2020 8:52 AM CDT 2 views chest INDICATION: Difficulty breathing and syncope. FINDINGS: Clear lungs. Normal heart size. No pneumothorax or pleural effusion *Reading Radiologist: Demetra Vicente on 04/08/2020 at 8:52 AM Procedure Note Demetra Vicente MD - 04/08/2020 2 views chest INDICATION: Difficulty breathing and syncope. FINDINGS: Clear lungs. Normal heart size. No pneumothorax or pleural effusion *Reading Radiologist: Demetra Vicente on 04/08/2020 at 8:52 AM Juan Vazquez MD DIAGNOSTIC IMAGING O RDERABLES * TSH REFLEX FREE T4 (04/08/2020 8:08 AM CDT) TSH 2.663 0.350 - 4.940 uIU/mL 04/08/2020 8:44 AM CDT [facility] Blood BLOOD SPECIMEN / Unknown Venipuncture / Unknown 04/08/2020 8:08 AM CDT 04/08/2020 8:08 AM CDT Juan Vazquez MD LAB - CHEMISTRY JJ FRAGOSO Performing Organization Address [facility] Co de Phone Number [facility] [address] [place] [address] * D-DIMER (04/08/2020 8:08 AM CDT) D-Dimer 0.34 0.27 - 0.50 ug/mL FEU 04/08/2020 8:46 AM CDT [facility] Blood BLOOD SPECIMEN / Unknown Venipuncture / Unknown 04/08/2020 8:08 AM CDT 04/08/2020 8:08 AM CDT Narrative [facility] - 04/08/2020 8:46 AM CDT In the absence of clinical symptoms, a value less than or equal to 0.5 mcg/mL FEU significantly decreases the probability of PE/DVT (negative predictive value >95%). 1 mcg/ml FEU = 1 Fibrinogen Equivalent Unit (approximates 0.5 mcg/mL of D- dimer). Juan Vazquez MD LAB - COAGULATION OR DERABLES [facility] [address] [place] [address] * (ABNORMAL) CBC W AUTO DIFFERENTIAL (04/08/2020 8:08 AM CDT) WBC 7.0 4.4 - 10.7 x10E9/L 04/08/2020 8:10 AM CDT [facility] WBC Corrected 04/08/2020 8:10 AM CDT [facility] RBC 4.31 3.80 - 5.20 x10E12/L 04/08/2020 8:10 AM CDT [facility] Hemoglobin 12.7 12.0 - 15.6 gm/dL 04/08/2020 8:10 AM CDT [facility] Hematocrit 37.2 35.9 - 45.5 % 04/08/2020 8:10 AM CDT [facility] MCV 86.3 80.7 - 98.3 fl 04/08/2020 8:10 AM CDT [facility] MCH 29.5 26.7 - 34.0 pg 04/08/2020 8:10 AM CDT [facility] MCHC 34.1 30.8 - 35.9 gm/dL 04/08/2020 8:10 AM CDT [facility] Platelet Count 278 153 - 416 x10E9/L 04/08/2020 8:10 AM CDT [facility] RDW-CV 11.9(L) 12.1 - 14.9 % 04/08/2020 8:10 AM CDT [facility] MPV 10.2 9.4 - 12.9 fl 04/08/2020 8:10 AM CDT [facility] Neutrophils % 65.5 44.0 - 73.0 % 04/08/2020 8:10 AM CDT [facility] Lymphocytes % 26.8 20.0 - 43.0 % 04/08/2020 8:10 AM CDT [facility] Monocytes % 5.2 5.0 - 13.0 % 04/08/2020 8:10 AM CDT [facility] Eosinophils % 1.7 0.0 - 6.0 % 04/08/2020 8:10 AM CDT [facility] Basophils % 0.7 0.0 - 2.0 % 04/08/2020 8:10 AM CDT [facility] Immature Granulocytes 0.1 0 - 1 % 04/08/2020 8:10 AM CDT [facility] Neutrophil Absolute 4.57 2.01 - 7.14 x10E9/L 04/08/2020 8:10 AM CDT [facility] Lymphocytes Absolute 1.87 1.07 - 3.94 x10E9/L 04/08/2020 8:10 AM CDT [facility] Monocytes Absolute 0.36 0.26 - 1.07 x10E9/L 04/08/2020 8:10 AM CDT [facility] Eosinophils Absolute 0.12 0 - 0.47 x10E9/L 04/08/2020 8:10 AM CDT [facility] Basophils Absolute 0.05 0 - 0.08 x10E9/L 04/08/2020 8:10 AM CDT [facility] Immature Granulocytes Absolute 0.01 0.00 - 0.06 x10E9/L 04/08/2020 8:10 AM CDT [facility] nRBC Auto 0 /100 WBC 04/08/2020 8:10 AM [facility] Blood BLOOD SPECIMEN / Unknown Venipuncture / Unknown 04/08/2020 8:08 AM CDT 04/08/2020 8:08 AM CDT Juan Vazquez MD LAB - HEMATOLOGY ORD ERABLES [facility] [address] [place] [address] * (ABNORMAL) BASIC METABOLIC PANEL (CALCIUM TOTAL) (04/08/2020 8:08 AM CDT) [facility] Glucose 106(H) 70 - 105 mg/dL 04/08/2020 8:23 AM CDT [facility] Sodium 139 136 - 145 mmol/L 04/08/2020 8:23 AM CDT [facility] Potassium 4.2 3.5 - 5.1 mmol/L 04/08/2020 8:23 AM CDT [facility] Chloride 108(H) 98 - 107 mmol/L 04/08/2020 8:23 AM CDT [facility] CO2 20(L) 23 - 31 mmol/L 04/08/2020 8:23 AM CDT [facility] Calcium 9.1 8.4 - 10.4 mg/dL 04/08/2020 8:23 AM CDT [facility] Anion Gap 11 8 - 16 mmol/L 04/08/2020 8:23 AM CDT [facility] BUN 11 7 - 18.7 mg/dL 04/08/2020 8:23 AM CDT [facility] Creatinine 0.72 0.57 - 1.11 mg/dL 04/08/2020 8:23 AM CDT [facility] eGFR by MDRD >60 >60 mL/min/1.7 3m2 04/08/2020 8:23 AM CDT [facility] eGFR by MDRD >60 >60 mL/min/1.7 3m2 04/08/2020 8:23 AM CDT [facility] Blood BLOOD SPECIMEN / Unknown Venipuncture / Unknown 04/08/2020 8:08 AM CDT 04/08/2020 8:08 AM CDT Juan Vazquez MD LAB - CHEMISTRY JJ FRAGOSO Performing Organization Address City/[facility]/ZIP Co de Phone Number [facility] [address] [place], [place] [id number] * HCG BLOOD QUALITATIVE (04/08/2020 8:08 AM CDT) Pathologist [facility] HCG Qual Serum Negative Negative 04/08/2020 8:29 AM CDT [facility] Blood BLOOD SPECIMEN / Unknown Venipuncture / Unknown 04/08/2020 8:08 AM CDT 04/08/2020 8:08 AM CDT Narrative [facility] - 04/08/2020 8:29 AM CDT Specimens containing heterophilic antibodies may demonstrate false positive results. ??Specimens containing human anti-mouse antibodies may exhibit false positive or false negative results. If qualitative interpretation is inconsistant with clinical evaluation, consider confirmation by an alternative hCG method. Juan Vazquez MD LAB - CHEMISTRY JJ FRAGOSO Performing Organization Address City/[facility]/ZIP Co de Phone Number [facility] [address] [place], [place] [id number] * EKG 12-LEAD (04/08/2020 7:50 AM CDT) Ventricular Rate 101 BPM [facility] Atrial Rate 101 BPM [facility] P-R Interval 134 ms [facility] QRS Duration ms 86 ms [facility] Q-T Interval ms 342 ms [facility] QTC Calculation (Bezet) 443 ms [facility] Calculated P [place] 52 degrees [facility] Calculated R [place] 67 degrees [facility] Calculated T [place] 24 degrees [facility] Interpretation EKG Sinus tachycardia Otherwise normal ECG No previous ECGs available Confirmed by MD JANNET, DEE DEE Olmos ([id number]) on 04/09/2020 8:02:15 AM [facility] M[facility] 04/08/2020 7:50 AM CDT 04/09/2020 8:02 AM CDT Juan Vazquez MD ECG ORDERABLES [facility] * DERMATOPATHOLOGY (07/28/2019 12:00 AM CDT) Case Report Dermatopathology Report ? Case: [id number] ? Authorizing Provider: ??Tg Garcia DO ?? Collected: ? 07/28/2019 12:00 AM ? Ordering Location: ? [facility] DermPath [facility] ?Received: ?07/29/2019 11:50 AM ? Pathologist: ? Kennedi Monet MD ? Specimen: ?Skin, left upper back ? 3:[address] [facility] DERMATOPATHOLOGY [facility]ORATORY Final Diagnosis Specimen A. SKIN, left upper back: EPIDERMOID CYST WITH EVIDENCE OF RUPTURE (L72.0) 3:[address] [facility] DERMATOPATHOLOGY LABORATORY Clinical History R/O cyst. 3:10 PM TRAUMA PROGRAM MANAGER DERMATOPATHOLOGY LABORATORY Gross Description Specimen A: Received is one formalin filled container labeled with the patient's name and designated left upper back. The specimen consists of a punch measuring [id number], bisected. Jar 0. 3:[address] [facility] DERMATOPATHOLOGY LABORATORY Microscopic Description Specimen A. SKIN, left upper back: Within the dermis, there is a space lined by epithelium that resembles normal epidermis and the infundibular portion of the hair follicle. Surrounding this is an infiltrate with neutrophils, histiocytes, and multinucleated giant cells. 3:[address] [facility] DERMATOPATHOLOGY LABORATORY Disclaimer An external and internal positive and negative controls are appropriate for the histochemical, immunohistochemical and immunofluorescence stain(s) in this case (if any), except where stated explicitly. The performance characteristics of the stain(s) cited in this report were developed and its performance characteristic determined by the Dermatopathology Laboratory at [facility], directed by Dr. Gigi Monet. These tests need not be, and therefore are not, approved by the [place] Food and Drug Administration. The tests are used for clinical purposes. Billing Codes Specimen Charges Stain Charges 30717 1 3:10 PM TRAUMA PROGRAM MANAGER DERMATOPATHOLOGY LABORATORY Embedded Images 3:[address] [facility] DERMATOPATHOLOGY LABORATORY Pathology/Cytolog y TISSUE SPECIMEN FROM SKIN / Unknown 07/28/2019 07/29/2019 11:50 AM CDT Tg Garcia DO LAB - PATHOLOGY/C YTOLOGY ORDERABLES DERMATOPATHOLOGY LABORATORY [place] - Department of Dermatology [address] [place] [address], [facility] [phone]
== END 2024-10-25 11:23 | disposition home or self-care (01) ==
PROVIDERS: PCP Nurse Practitioner Family; Visit Provider Obstetrics & Gynecology
DX: Z12.31 Encounter for screening mammogram for malignant neoplasm of breast (principal)
CPT/HCPCS: 76641; 77062; 77066; G0279

== ENCOUNTER 2024-12-21 10:39 | Emergency (ER) | payer OTHER, SELFPAY ==
[2024-12-21 10:54] VITALS: BP 144/96; PULSE 90; RESP 18; TEMP 36.3; O2SAT 100
--- NOTE | 2024-12-21 11:04 | ED.URI ---
HPI - URI/Sore Throat General Chief Complaint: Upper Respiratory Infection Stated Complaint: strep throat Time Seen by Provider: 12/21/24 11:04 Source: patient Mode of arrival: ambulatory Limitations: no limitations History of Present Illness HPI Narrative: 34-year-old female presents with complaint of sore throat, body aches, fatigue starting yesterday. Today has radiation of sore throat to both ears. Denies nausea vomiting diarrhea. No cough or congestion. All systems reviewed and negative except as noted above. Related Data Home Medications ?Medication ?Instructions ?Recorded ?Confirmed ?Last Taken ?Type albuterol sulfate 90 mcg/actuation 90 mcg inhalation QID PRN sob 03/19/23 03/19/23 Unknown History aerosol inhaler alprazolam 0.25 mg tablet 0.25 mg PO DAILY PRN Anxiety 03/19/23 03/19/23 Unknown History budesonide-formoterol HFA 160 2 inh inhalation DAILY 03/19/23 03/19/23 Unknown History mcg-4.5 mcg/actuation aerosol inhaler cyclobenzaprine 5 mg tablet 5 mg PO DAILY PRN muscle spasms 03/19/23 03/19/23 Unknown History desvenlafaxine succinate 50 mg 50 mg PO DAILY 03/19/23 03/19/23 Unknown History tablet,extended release 24 hr metformin 1,000 mg tablet 1,000 mg PO DAILY 03/19/23 03/19/23 Unknown History metoprolol tartrate 25 mg tablet 25 mg PO DAILY 03/19/23 03/19/23 Unknown History spironolactone 100 mg tablet 100 mg PO DAILY 03/19/23 03/19/23 Unknown History Allergies Allergy/AdvReac Type Severity Reaction Status Date / Time No Known Allergies Allergy Verified 12/21/24 10:50 Review of Systems Review of Systems: CONSTITUTIONAL: Reports fatigue, fever, chills, or sweats. EYES: Denies visual changes, redness, or discharge. ENT: Denies rhinorrhea, congestion. Reports sore throat and bilateral otalgia. CARDIOVASCULAR: Denies chest pain, palpitations, or edema. RESPIRATORY: Denies cough or dyspnea. GASTROINTESTINAL: Denies abdominal pain, nausea, vomiting, or diarrhea. GENITOURINARY: Denies dysuria or hematuria. SKIN: Denies rash or itching. MUSCULOSKELETAL: Denies back pain, joint pain, or myalgia. NEUROLOGIC: Denies headache, numbness, or weakness. PSYCHIATRIC: Denies anxiety or depression. All other systems reviewed are negative, except as documented in HPI. [facility] Past Medical History Medical History Anorexia Anxiety Asthma Bacterial vaginosis Depression Dysrhythmia, cardiac sinus tachycardia Near syncope Obesity Surgical History Surgical History History of bunionectomy of left great toe History of loop recorder History of surgery on left wrist Family History Family History Father Hypertension Mother Patient's mother is in good health Sibling Patient's brother is in good health Social History Social History Smoking packs per day: 1 Smoking cigarettes per day: 20.0 Years smoked: 10 Smoking pack-years: 10.00 Smoking status: Never smoker Tobacco type: e-cigarettes/vaping Additional smoking assessment comments: VAPES LOWEST NICTOINE, INTERMITTENLY THROUGHOUT DAY Alcohol intake: current Drinks per week: 10 Substance use: never Living arrangements: with family Additional living arrangements comments: SPOUSE 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 There is no relevant family history pertinent to the presenting complaint. Exam Narrative: GENERAL: This is a well-nourished, well-developed patient, in no apparent distress. HEAD: normocephalic, atraumatic. EYES: PERRL. Sclera clear/white. Vision is grossly intact. EARS: External ears normal, auditory canals clear and without drainage, TMs normal without perforation. Hearing grossly intact. NOSE: External nose normal with no obvious nasal discharge, nares without redness, no rhinorrhea. THROAT: Mucous membranes moist, mild erythema with mild exudates. No tonsillar swelling. NECK: Neck supple, non-tender without lymphadenopathy, masses or thyromegaly. CARDIOVASCULAR: Regular rate and rhythm without murmurs, gallops, or rubs. RESPIRATORY: Clear to auscultation. Breath sounds equal bilaterally. No wheezes, rales, or rhonchi. SKIN: warm, Dry, intact with no suspicious lesions or rash, good texture and turgor. NEURO: awake, alert, and oriented to person, place and time. There were no obvious focal neurologic abnormalities. EXTREMITIES: No joint tenderness, effusion, or edema noted. Course Course Level of Care: Express Care Visit Vital Signs Vital signs: Vital Signs Temperature 36.3 C L 12/21/24 10:54 Pulse Rate 90 12/21/24 10:54 Respiratory Rate 18 12/21/24 10:54 Blood Pressure 144/96 H 12/21/24 10:54 Pulse Oximetry 100 12/21/24 10:54 Oxygen Delivery Room Air 12/21/24 10:54 Temperature 36.3 C L 12/21/24 10:54 Pulse Rate 90 12/21/24 10:54 Respiratory Rate 18 12/21/24 10:54 Blood Pressure 144/96 H 12/21/24 10:54 Pulse Oximetry 100 12/21/24 10:54 Oxygen Delivery Room Air 12/21/24 10:54 Reviewed MDM - URI/Sore Throat MDM Narrative Medical decision making narrative: negative strep test. Strep culture ordered. Patient is well-appearing, nontoxic. Will wait for strep culture prior to treating with antibiotics. Please be advised this is a medical document. It is intended for [id number] communication. It is written in medical language and may contain unfamiliar abbreviations or verbiage. Medical documents are intended to carry relevant information, facts as evident, and the clinical opinion of the practitioner at the time of the encounter. This report may have been done utilizing a voice recognition system. Attempts have been made to correct errors. However, there may be uncorrected grammatical, spelling, and recognition errors present. The file time of this note does not necessarily represent the time of service. Differential Diagnosis Differential diagnosis: Likely upper respiratory infection, viral infection, influenza and pharyngitis Lab Data Labs: Lab Results 12/21/24 Range/Units 11:17 POC Grp A Strep Screen Negative (Negative) Discharge Plan Discharge Clinical Impression: Acute viral pharyngitis Patient Disposition: Home, Self-Care Condition: Stable Instructions: Pharyngitis (ED) Additional Instructions: your strep test was negative today. A strep culture was ordered and results will take 24-48 hours. If your strep culture is positive we will call you at that time and prescribed an antibiotic. Take ibuprofen or Tylenol every 6-8 hours as needed for pain and fever. Drink at least 64 oz water a day. Follow-up with your doctor if symptoms are not improving. Patient Language: Kosovan Prescriptions: No Action naproxen 500 mg tablet 500 mg PO BID PRN (Reason: pain) 7 Days Qty: 14 0RF spironolactone 100 mg tablet 100 mg PO DAILY alprazolam 0.25 mg tablet 0.25 mg PO DAILY PRN (Reason: Anxiety) metformin 1,000 mg tablet 1,000 mg PO DAILY albuterol sulfate 90 mcg/actuation HFA aerosol inhaler 90 mcg INHALATION QID PRN (Reason: sob) cyclobenzaprine 5 mg tablet 5 mg PO DAILY PRN (Reason: muscle spasms) metoprolol tartrate 25 mg tablet 25 mg PO DAILY budesonide-formoterol 160-4.5 mcg/actuation HFA aerosol inhaler 2 inh INHALATION DAILY desvenlafaxine succinate 50 mg tablet extended release 24 hr 50 mg PO DAILY Follow-up/Referrals: UNKNOWN,DOCTOR [Primary Care Provider] - Time of Disposition: 11:15
[2024-12-21 11:19] LABS: EDSTREPNEGPOS1 Negative (Negative)
--- OUTSIDE RECORDS SUMMARY | 2024-12-21 12:12 | XMS_ITS | Encounter Summary ---
Author Organization [facility] Address [address] [place] [address] Care Team Providers Care Autism Specialist Name Role Phone Unavailable Primary Care Provider Unavailabl e Encounter Details Date Type Department Care Team (Late st Contact Info) Description 09/24/2020 Lab Requisition [facility] MICROBIOLOGY [address] [place] [address] Social History Tobacco Use Types Packs/Day Years [...] (COVID-19) IN HOUSE Routine 09/24/2020 11:30 AM EMAIL DEVELOPER documented in this encounter Results * SARS-COV-2 (COVID-19) IN HOUSE (09/24/2020 11:30 AM EMAIL DEVELOPER) COVID-19 PCR Not detected Not detected 09/24/2020 4:38 PM EMAIL DEVELOPER [facility] MICROBIOLOGY Microbiology SPECIMEN FROM NASOPHARYNGEAL STRUCTURE / Unknown Collection / Unknown 09/24/2020 11:30 AM EMAIL DEVELOPER 09/24/2020 1:38 PM EMAIL DEVELOPER Narrative [facility] MICROBIOLOGY - 09/24/2020 4:38 PM EMAIL DEVELOPER This nucleic acid amplification assay performance was validated by [facility] Microbiology Laboratory. This test has been authorized by the Food and Drug administration (FDA)under an Emergency Use Authorization (EUA). This test has been validated [...] upon request. LAB - MICROBIOLOGY O RDERABLES [facility] MICROBIOLOGY [address] [place] [address], [facility] [phone] documented in this encounter Visit Diagnoses Not on filedocumented in this encounter Additional Health Concerns Infection Onset Date Last Indicated Resolved Time COVID-19 Under Investigation 09/24/2020 09/24/2020 09/24/2020 4:38 PM EMAIL DEVELOPER documented as of this encounter
--- OUTSIDE RECORDS SUMMARY | 2024-12-21 12:12 | XMS_ITS | Encounter Summary ---
Author Organization [facility] Address [facility] [place] [address] Care Team Providers Care Cnc Machine Setter Name Role Phone Jess Sosa [facility] Primary Care Provider Gerard Pires MD Unavailable [phone] HusArt maki MD Unavailable [phone] Dinah Mcintosh MD Primary Care Provider [phone] Encounter Details Date Type Department Care Team (Late st Contact Info) Description 11/23/2020 [facility] Message Enc [facility] [address] [place], [facility] Provider Missed or Cancelled Appointment Social History [...] Information Value Date Recorded Sex Assigned at Female 10/28/2024 9:05 AM SUPERINTENDENT NONSELLING Legal Sex Female 9:09 PM CDT Gender Identity Not on file Sexual Orientation Not on file 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 [address] [address] 01/27/2025 10:30 AM CDT Appointment [place] [address] Art Rao MD Three [facility]. [address] [address] 01/27/2025 12:00 PM CDT Appointment [place] [address] Art Rao MD [facility]. [address] [address] documented as of this encounter Visit Diagnoses Not on filedocumented in this encounter Care Teams Cnc Machine Setter Relationship Specialty Start Date End Date Jess Sosa [facility] PCP - General NURSE PRACTITIONER 11/10/18 05/28/24 Dinah Mcintosh MD [address] [place] [address] PCP - General FAMILY PRACTICE 05/29/24 Gerard Olson MD [address] [place] [address] LIGHTING ADVISER ONCOLOGY 05/18/19 Art Rao MD [address] [address] EP Tanner Rotary Drum Continuous Process CARDIOVASCULAR DISEASE 06/01/19 documented as of this encounter
--- OUTSIDE RECORDS SUMMARY | 2024-12-21 12:12 | XMS_ITS | Encounter Summary ---
Author Organization [facility] Address [facility] [place] [address] Care Team Providers Care Blanket Winder Helper Name Role Phone IanJess [facility] Primary Care Provider Gerard Pires MD Unavailable [phone] Art Rao MD Unavailable [phone] Dinah Mcintosh MD Primary Care Provider [phone] Encounter Details Date Type Department Care Team (Late st Contact Info) Description 07/06/2019 MyChart Message Enc [facility] Medical Group [facility] Medicine [address] [address] Nicolle Jimenes MA Referral Social History Tobacco Use Types Packs/Day Years Used Date Smoking Tobacco: Former Cigarettes 1 10 0 02/27/2008 - 02/26/2018 Smokeless Tobacco: Never Alcohol Use Standard Drinks/Week Comments Yes 0 (1 standard drink = 0.6 oz pur e alcohol) Comments No Sex and Gender Information Value Date Recorded Sex Assigned at Female 10/28/2024 9:05 AM HEAD COUNSELOR Legal Sex Female 9:09 PM CDT Gender Identity Not on file Sexual Orientation Not on file documented as of this encounter Plan of Treatment Upcoming Encounters Date Type Department Care Team (Late st Contact Info) Description 01/27/2025 10:00 AM CDT Appointment [place] [address] Art Rao MD Three [facility]. [facility] [address] [place] [address] 01/27/2025 10:30 AM CDT Appointment [place] [address] Art Rao MD Three [facility]. [facility] [address] [place] [address] 01/27/2025 12:00 PM CDT Appointment [place] [address] Art Rao MD Three [facility]. [facility] [address] [place] [address] documented as of this encounter Visit Diagnoses Not on filedocumented in this encounter Care Teams Blanket Winder Helper Relationship Specialty Start Date End Date Jess Sosa [facility] PCP - General NURSE PRACTITIONER 11/10/18 05/28/24 Dinah Mcintosh MD [address] [place] [address] PCP - General FAMILY PRACTICE 05/29/24 Gerard Olson MD [address] [place] [address] CAN LINE OPERATOR ONCOLOGY 05/18/19 Art Rao MD Three [facility]. [facility] [address] [place] [address] EP Supervisor Drying And Softening CARDIOVASCULAR DISEASE 06/01/19 documented as of this encounter
--- OUTSIDE RECORDS SUMMARY | 2024-12-21 12:12 | XMS_ITS | Encounter Summary ---
Author Organization [facility] Address [facility] [place] [address] Care Team Providers Care Track Watchman Name Role Phone Jess SosaREMY Primary Care Provider Gerard Pires MD Unavailable [phone] HusArt maki MD Unavailable [phone] Dinah Mcintosh MD Primary Care Provider [phone] Encounter Details Date Type Department Care Team (Late Contact Info) Description 01/14/2024 MyChart Message Enc [facility] Medical Group [facility] Medicine [address] [address] Jess Sosa FNP-BC physical Social History Tobacco Use Types Packs/Day [...] Sex Assigned at Female 10/28/2024 9:05 AM PEELER OPERATOR Legal Sex Female 9:09 PM CDT Gender Identity Not on file Sexual Orientation Not on file 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 [facility] [place] [address] Art Rao MD Three [facility]. [address] [address] 01/27/2025 10:30 AM CDT Appointment [place] [employer] [place] [address] Art Rao MD Three [facility]. [facility] [address] [place] [address] 01/27/2025 12:00 PM CDT Appointment [place] [place] [address] Art Rao MD Three [address] [id number] documented as of this encounter Visit Diagnoses Not on filedocumented in this encounter Additional Health Concerns Assessment Noted Time PHQ-9 Depression Total Score: 0 01/14/20 11:08 AM CDT documented as of this encounter Care Teams Track Watchman Relationship Specialty Start Date End Date Jess Sosa [facility] PCP - General NURSE PRACTITIONER 11/10/18 05/28/24 Dinah Mcintosh MD [address] [place] [address] PCP - General FAMILY PRACTICE 05/29/24 Gerard Olson MD [address] [facility]ITAL[facility] [place] [address] GREEN BUILDING MATERIALS DESIGNER ONCOLOGY 05/18/19 Art Rao MD Three [facility] [address] [place] [address] EP Continuous Loft Operator CARDIOVASCULAR DISEASE 06/01/19 documented as of this encounter
--- OUTSIDE RECORDS SUMMARY | 2024-12-21 12:12 | XMS_ITS | Encounter Summary ---
Author Organization [facility] Address [address] [facility] [place] [address] Care Team Providers Care Glass Science Engineer Name Role Phone Unavailable Primary Care Provider Unavailabl e Encounter Details Date Type Department Care Team (Late st Contact Info) Description 07/29/2019 Lab Requisition [facility] [address] [facility], [place] [address] Tg Garcia, DO [address] [facility] [address] [place] [address] Social History Tobacco Use Types Packs/Day Years [...] Under Investigation 09/24/2020 09/24/2020 09/24/2020 4:38 PM APPRAISAL SPECIALIST documented as of this encounter
--- OUTSIDE RECORDS SUMMARY | 2024-12-21 12:12 | XMS_ITS | Clinical Summary ---
Author Organization [facility] Address [address] [place] [phone] Phone Care Team Providers Care Cooker Cleaner Name Role Phone Unavailable Primary Care Provider [...] on file Legal Sex Female 12:13 AM POOL CLEANER Gender Identity Not on file Sexual Orientation Not on file Last Filed Vital Signs Vital Sign Reading Time Taken Comments Blood Pressure 116/89 08/27/2015 3:14 AM POOL CLEANER Pulse - - Temperature 36.2 C (97.1 F) 08/27/2015 3:14 AM POOL CLEANER Respiratory Rate 20 08/27/2015 3:14 AM POOL CLEANER Oxygen Saturation 100% 08/27/2015 3:14 AM POOL CLEANER Inhaled Oxygen Concentration - - Weight 68 kg (150 lb) 08/27/2015 12:22 AM POOL CLEANER Height 167.6 cm (5' 6 ) 08/27/2015 12:22 AM POOL CLEANER Body Mass Index 24.21 08/27/2015 12:22 AM POOL CLEANER Plan of Treatment Health Maintenance Due Date Last Done Comments DTAP/TDAP/TD VACCINES (2 - Tdap) 11/29/2011 02/11/1993 PAP SMEAR 2013 CERVICAL CANCER SCREENING 2022 HPV/Cotest 2022 PAP SMEAR 2022 INFLUENZA VACCINE (#1) 2024 HEPATITIS B VACCINES Completed 02/23/2003, 04/19/1998, 05/04/1997 HPV VACCINES Aged Out No longer imani salas based on patient's age to complete this topic
--- OUTSIDE RECORDS SUMMARY | 2024-12-21 12:12 | XMS_ITS | Encounter Summary ---
Author Organization [facility] Address [facility] [place] [address] Care Team Providers Care Motorman/Woman Name Role Phone Jess Sosa [facility] Primary Care Provider Gerard Pires MD Unavailable [phone] Art Rao MD Unavailable [phone] Dinah Mcintosh MD Primary Care Provider [phone] Encounter Details Date Type Department Care Team (Late st Contact Info) Description 10/22/2020 Zipdial Message Enc [facility] [address] [place], [facility] Provider Missed Carelink Transmission Social History Tobacco [...] Sex Assigned at Female 10/28/2024 9:05 AM NARROW FABRIC LOOM FIXER Legal Sex Female 9:09 PM CDT Gender Identity Not on file Sexual Orientation Not on file 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 No / Unsure 10/09/2020 2:40 PM NARROW FABRIC LOOM FIXER documented as of this encounter Plan of Treatment Upcoming Encounters Date Type Department Care Team (Late st Contact Info) Description 01/27/2025 10:00 AM CDT Appointment [place] [address] Art [facility] MD [facility]. [address] [address] 01/27/2025 10:30 AM CDT Appointment [place] [address] Art Rao MD [facility]. [address] [address] 01/27/2025 12:00 PM CDT Appointment [place] [address] Art Rao MD [facility]. [address] [address] documented as of this encounter Visit Diagnoses Not on filedocumented in this encounter Care Teams Motorman/Woman Relationship Specialty Start Date End Date [facility] PCP - General NURSE PRACTITIONER 11/10/18 05/28/24 Dinah Mcintosh MD [address] [place] [address] PCP - General FAMILY PRACTICE 05/29/24 Gerard Olson MD [address] [place] [address] GLASS LATHE OPERATOR ONCOLOGY 05/18/19 Art Rao MD Three [facility]. [address] [address] EP Returned Goods Inspector CARDIOVASCULAR DISEASE 06/01/19 documented as of this encounter
--- OUTSIDE RECORDS SUMMARY | 2024-12-21 12:12 | XMS_ITS | Encounter Summary ---
Author Organization [facility] Address [facility] [place] [address] Care Team Providers Care Centrifugal Separator Name Role Phone [facility] Primary Care Provider Gerard Pires MD Unavailable [phone] Art Rao MD Unavailable [phone] Dinah Mcintosh MD Primary Care Provider [phone] Encounter Details Date Type Department Care Team (Late st Contact Info) Description 02/14/2023 MyChart Message Enc [facility] Medical Group Family Medicine [address] [address] Jess Sosa OFFICER LIEUTENANTREMY Rosales Social History Tobacco Use Types Packs/Day Years [...] Sex Assigned at Female 10/28/2024 9:05 AM AUTOMOBILE PAINTER Legal Sex Female 9:09 PM CDT Gender Identity Not on file Sexual Orientation Not on file 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 [address] [address] 01/27/2025 10:30 AM CDT Appointment [facility] [place] [address] Art Rao MD Three [facility]. [address] [address] 01/27/2025 12:00 PM CDT Appointment [facility] [place] [address] Art Rao MD Three [facility] [address] [address] documented as of this encounter Visit Diagnoses Not on filedocumented in this encounter Care Teams Centrifugal Separator Relationship Specialty Start Date End Date [facility] PCP - General NURSE PRACTITIONER 11/10/18 05/28/24 Dinah Mcintosh MD [address] [place] [address] PCP - General FAMILY PRACTICE 05/29/24 Gerard Olson MD [address] [facility] [place] [address] PAINTER TUMBLING BARREL ONCOLOGY 05/18/19 Art Rao MD [facility]. [address] [address] EP Transition Social Worker CARDIOVASCULAR DISEASE 06/01/19 documented as of this encounter
--- OUTSIDE RECORDS SUMMARY | 2024-12-21 12:12 | XMS_ITS | Encounter Summary ---
Author Organization [facility] Address [facility] [place] [address] Care Team Providers Care Packing Attendant Name Role Phone Jess Sosa [facility] Primary Care Provider Gerard Pires MD Unavailable [phone] Art Rao MD Unavailable [phone] Dinah Mcintosh MD Primary Care Provider [phone] Encounter Details Date Type Department Care Team (Late Contact Info) Description 11/08/2019 MyChart Message Enc [facility] Family Medicine [address] [address] Jess Sosa MODEL BUILDER DISPLAYDENA RE: Question Social History Tobacco Use Types Packs/Day Years Used Date Smoking Tobacco: Former Cigarettes 1 10 0 02/27/2008 - 02/26/2018 Smokeless Tobacco: Never Alcohol Use Standard Drinks/Week Comments Yes 0 (1 standard drink = 0.6 oz pur e alcohol) Comments No Sex and Gender Information Value Date Recorded Sex Assigned at Female 10/28/2024 9:05 AM BOILERMAKER APPRENTICE Legal Sex Female 9:09 PM CDT Gender Identity Not on file Sexual Orientation Not on file 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 [facility] [address] [place], [place] [address] 01/27/2025 10:30 AM CDT Appointment [facility] [place] [address] Art Rao MD Three [facility]. [facility] [address] [place] [address] 01/27/2025 12:00 PM CDT Appointment [facility] [place] [address] Art Rao MD Three [facility]. [facility] [address] [place] [id number] documented as of this encounter Visit Diagnoses Not on filedocumented in this encounter Care Teams Packing Attendant Relationship Specialty Start Date End Date Jess [facility] PCP - General NURSE PRACTITIONER 11/10/18 05/28/24 Dinah Mcintosh MD [facility]6 [place] [address] PCP - General FAMILY PRACTICE 05/29/24 Gerard Olson MD [address] [place] [address] CARBON ELECTRODES SUPERVISOR ONCOLOGY 05/18/19 Art Rao MD Three [facility]. [facility] [address] [place], [place] [address] EP Material Handler 1St Shift CARDIOVASCULAR DISEASE 06/01/19 documented as of this encounter
--- OUTSIDE RECORDS SUMMARY | 2024-12-21 12:12 | XMS_ITS | CONTINUITY OF CARE DOCUMENT ---
Author Name grace, rolandjose carlos Address Unknown Organization [facility] Address [address] [facility] [address] [place] [address] Phone [phone] Care Team Providers Care Mat Puncher Name Role Phone Nancy DAUGHERTY, [facility] Unavailable [phone] LISA LUNA Unavailable [phone] LISA LUNA Unavailable INSURANCE PROVIDERS Payer name Policy type / Coverage type [place] red republican ID [facility] [id number]
--- OUTSIDE RECORDS SUMMARY | 2024-12-21 12:12 | XMS_ITS | Clinical Summary ---
Author Organization [facility] Address [facility] [place] [address] Care Team Providers Care Server Developer Name Role Phone Gerard Olson MD Unavailable [phone] Kyler Anthony MD Unavailable [phone] Dinah Mcintosh MD Primary Care Provider [phone] Allergies Active Allergy Reactions Criticality Noted Date Comments Iodinated Contrast Media Other (see comment) Hot feeling Iodine Other (see comment) Low 12/04/2021 Medications budesonide-formo terol (SYMBICORT) 160-4.5 MCG/ACT inhalerIndicatio ns:Seasonal asthma (HHS/HCC) Inhale 2 puffs into the lungs 2 (two) times daily. 10.2 g 3 2 Active clobetasol (TEMOVATE) 0.05 % external solution Apply topically 2 (two) times daily. 2 Active ketoconazole (NIZORAL) 2 % shampoo 2 Active levonorgestrel (MIRENA, 52 MG,) 20 MCG/DAY IUD 1 Intra Uterine Device by Intrauterine route once. Active spironolactone (ALDACTONE) 100 MG tablet Take 1 tablet (100 mg total) by mouth daily. Active ipratropium (ATROVENT HFA) 17 MCG/ACT inhalerIndicatio ns:Seasonal asthma (HHS/HCC) Inhale 2 puffs into the lungs every 6 (six) hours. 12.9 g 1 3 Active metoprolol tartrate (LOPRESSOR) 25 MG tabletIndication s:Hypertension, essential, benign TAKE 1 TABLET(25 MG) BY MOUTH TWICE DAILY 60 tablet 3 4 Active albuterol sulfate HFA (PROAIR HFA) 108 (90 Base) MCG/ACT inhalerIndicatio ns:Mild intermittent asthma without complication (HHS/HCC) Inhale 2 puffs into the lungs every 6 (six) hours as needed for Wheezing or Shortness of breath. 18 g 3 4 Active verapamil (CALAN SR) 120 MG ER tablet Take 1 tablet (120 mg total) by mouth 2 (two) times daily. 60 tablet 3 5 Active predniSONE (DELTASONE) 20 MG tablet Take 2 tablets the night before the procedure at 5:00 pm and 2 tablets at bedtime and 2 tablets the morning of the procedure 01/27/2025 6 tablet 5 Active diphenhydrAMINE (BENADRYL) 25 MG tablet Take 2 tablets the night before the procedure at 5:00 pm take 2 tablets at bedtime and 2 tablets the morning of procedure 01/27/2025 6 tablet 5 Active cimetidine (TAGAMET) 300 MG tablet Take 1 tablet the evening before procedure at 5:00 pm take 1 tablet at bedtime and 1 tablet the morning of procedure 01/27/2025 3 tablet 5 Active Active Problems Patient Care Coordination No te Formatting of this note migh t be different from the original. [facility] Problem Noted Date Diagnosed Date PMDD (premenstrual dysphoric disorder) 3 Palpitations 12/13/2021 Overview (12/13/2021): MDT REVEAL LINQ IMPLANTED 08/12/19 FOR PALP Status post placement of implantable loop record er 12/13/2021 Overview (12/13/2021): MDT REVEAL LINQ IMPLANTED 08/12/19 FOR PALP Anxiety 04/12/2021 Mixed hyperlipidemia 05/18/2019 Hypertension, essential, benign 01/14/2018 Tachycardia, unspecified 01/14/2018 Resolved Problems Problem Noted Date Diagnosed Date Resolved Date Gastroesophageal reflux disease 04/12/2021 04/10/2022 Tobacco user 04/12/2021 11/01/2024 test negative 11/09/2018 12/0 09/2021 Counseling for HPV (human pa pillomavirus) vaccination 10/26/2018 04/15/2021 Acute vaginitis 08/31/2018 10/02/2021 Bacterial vaginosis 01/14/2018 04/11/20 20 Yeast vaginitis 01/14/2018 04/11/2020 Encounter for preventive health examination 01/13/2018 06/08/2020 Tobacco use 08/27/2015 05/18/2019 Encounters Date Type Department Care Team Description 11/01/2024 8:45 AM CELL GENETICIST Office Visit [facility], [address] [address] Kyler Anthony MD Supraventricular Tachycardia (Follow up) 11/01/2024 Telephone [facility], [address] [address] Kyler Anthony MD Medication (Dye allergy) 11/01/2024 Orders Only [facility], [place] [address] [place] [address] Kyler Anthony MD 11/01/2024 Travel 10/28/2024 9:40 AM CELL GENETICIST Allied Health/Nurse Visit [address] [address] Dinah Mcintosh MD UTI (Pt here for Uti sx ) 10/28/2024 - 10/28/2024 11:59 PM CELL GENETICIST Hospital Encounter [facility] [address] [place] [address] Dinah Mcintosh MD Discharge Disposition: Home or Self Care (Routine Discharge) 10/28/2024 Travel 10/24/[address] [address] Dinah Mcintosh MD Referral from Last 3 Months Immunizations Name Administration [...] Hyperlipidemia Father Hypertension Father CABG Maternal Grandmother DE Maternal Grandmother Stent Cardiac Maternal Grandmother Stroke Maternal Grandmother DE Mother v tach Mother cardiac arrest DE Paternal Grandfather Valve Disease Paternal Grandfather Stroke [...] Sex Assigned at Female 10/28/2024 9:05 AM CELL GENETICIST Legal Sex Female 9:09 PM CDT Gender Identity Not on file Sexual Orientation Not on file Occupation Industry 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 Start Date Job End Date [facility]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 file Not on file Not on file Last Filed Vital Signs Vital Sign Reading Time Taken Comments Blood Pressure 124/78 11/01/2024 8:46 AM CELL GENETICIST Pulse 124 11/01/2024 8:46 AM CELL GENETICIST Temperature 36.7 C (98.1 F) 06/10/2024 10:36 AM CDT Respiratory Rate 16 06/10/2024 10:36 AM CDT Oxygen Saturation 99% 11/01/2024 8:46 AM CELL GENETICIST Inhaled Oxygen Concentration - - Weight 102.5 kg (226 lb) 11/01/2024 8:46 AM CELL GENETICIST Height 167.6 cm (5' 6 ) 11/01/2024 8:46 AM CELL GENETICIST Body Mass Index 36.48 11/01/2024 8:46 AM CELL GENETICIST Plan of Treatment Upcoming Encounters Date Type Department Care Team (Late st Contact Info) Description 01/27/2025 10:00 AM CDT Appointment [facility] [place], [place] [id number] Kyler Anthony MD Three [facility]. [address] [place], [place] [phone] 01/27/2025 10:30 AM CDT Appointment [employer] [address] Kyler Anthony MD Three [facility]. [address] [address] 01/27/2025 12:00 PM CDT Appointment [employer] [address] Kyler Anthony MD Three [facility]. [address] [phone] Health Maintenance Due Date Last Done Comments [...] (#1) 2024 08/07/2023, 10/02/2021, 07/29/2016 PHQ-2 (Physician [place]) 09/28/2024 06/10/2024 DTaP, Tdap and Td Vaccines [...] this topic Medical Devices Implanted Type Area Fire Support Man Device Identifier Shelf Expiration Date Model / Serial / Lot Implantable Loop Recorder-08/12 Implanted:07/29 by Kyler Anthony MD (Quantity not on file) Implantable Loop Recorder Left: Chest Wall [employer] CARDIAC RHYTHM AND HEART FAILURE - DIV M [id number] / [id number] / Procedures Procedure Name Priority Date/Time Associated Diagnosis Comments ELECTROCARDIOGRAM (NON MIDMARK ACQUIRED) Routine 11/01/2024 8:53 AM CELL GENETICIST SVT (supraventricular tachycardia) ([facility]) URINE BACTERIA CULTURE Routine 9:28 AM CELL GENETICIST Dysuria URINALYSIS AUTO DIP Routine 10/28/2024 Dysuria from Last 3 Months Results * ELECTROCARDIOGRAM (11/01/2024 8:53 AM CELL GENETICIST) 11/01/2024 8:53 AM CELL GENETICIST Narrative PRAKEYURE CARDIOVASCULAR - 11/01/2024 5:58 PM CELL GENETICIST [facility], [facility] Test Date: 2024-11-01 Pat Name: [facility] Department: 112 Room: Gender: Female Community Chest Officer: : 1990 Requested By: KYLER ANTHONY Order Number: [id number] Reading MD: Kyler Anthony Measurements Intervals [place] Rate: 108 P: 36 [place]: 136 QRS: 92 QRSD: 96 T: -9 QT: 324 QTc: 436 Interpretive Statements SINUS TACHYCARDIA BORDERLINE RIGHT AXIS DEVIATION INCOMPLETE RIGHT BUNDLE BRANCH BLOCK NONSPECIFIC T-WAVE ABNORMALITY GENETICIST Procedure Note Kyler Anthony MD - 11/01/2024 [facility] Test Date: 2024-11-01 Pat Name: JORDI LEDES[facility] Department: 112 Room: Gender: Female Community Chest Officer: : 1990 Requested By: KYLER ANTHONY Order Number: [id number] Reading MD: Kyler Anthony Measurements Intervals [place] Rate: 108 P: 36 [place]: 136 QRS: 92 QRSD: 96 T: -9 QT: 324 QTc: 436 Interpretive Statements SINUS TACHYCARDIA BORDERLINE RIGHT AXIS DEVIATION INCOMPLETE RIGHT BUNDLE BRANCH BLOCK NONSPECIFIC T-WAVE ABNORMALITY GENETICIST us Kyler Anthony MD PROCEDURES-ORDERABLE NO [place] RGE Final Result Performing Organization Address City/[facility] Co de Phone Number [facility] * URINE BACTERIA CULTURE (10/28/2024 9:28 AM CELL GENETICIST) SPEC DESCRIPTION URINE CLEAN CATCH 10/28/2024 9:29 AM CELL GENETICIST [facility] SPECIAL REQUESTS NO SPECIAL REQUEST 10/28/2024 9:29 AM CELL GENETICIST [facility] CULTURE RESULT NO GROWTH (< OR = 1,000 CFU/ML) 10/30/2024 10:38 AM CELL GENETICIST [facility] URINE SPECIMEN OBTAINED BY CLEAN CATCH PROCEDURE / Unknown 10/28/2024 9:28 AM CELL GENETICIST 10/28/2024 5:48 PM CELL GENETICIST us Dinah Mcintosh MD MICROBIOLOGY - GENERAL ORDERABLE S Final Result Performing Organization Address [facility] Co de Phone Number [facility] [address] [place] [place] [address], [phone] * URINALYSIS AUTO DIP (10/28/2024) COLOR (U) YELLOW YELLOW MG-JULES RYAN RADHA TRANSPARENCY CLEAR CLEAR MG-BAUGH MAN RYAN, RADHA GLUCOSE (U) NEGATIVE NEGATIVE MG/DL MG-JULES RYAN, RADHA BILIRUBIN (U) NEGATIVE NEGATIVE MG-ZHANG TMAN RYAN, RADHA KETONES MG/DL (U) NEGATIVE NEGATIVE MG/DL MG-JULESJEFFERSON FIGUEREDO RADHA SPECIFIC GRAVITY (U) 1.020 1.001 - 1.035 RADHA CRANE BLOOD (U) NEGATIVE NEGATIVE RADHA CRANE U PH 7.5 5.0 - 9.0 RADHA CRANE PROTEIN (U) NEGATIVE NEGATIVE mg/dL RADHA CRANE UROBILINOGEN 0.2 0.2 - 1.0 EU/dL = mg/dL RADHA CRANE NITRITES NEGATIVE NEGATIVE MG/DL MGRADHA NOBLE LEUKOCYTES (U) NEGATIVE NEGATIVE MG-CEVALLOS RADHA ALVARENGA URINE SPECIMEN OBTAINED BY CLEAN CATCH PROCEDURE / Unknown 10/28/2024 Dinah Mcintosh MD URINE ORDERABLES Final Result Performing Organization Address City/State/[facility] Co de Phone Number RADHA CRANE [address] [place] [address], from Last 3 Months Insurance Care Teams Server Developer Relationship Specialty Start Date End Date Dinah Mcintosh MD [address] [place] [address] PCP - General FAMILY PRACTICE 05/29/24 Gerard Olson MD [address] [place] [address] PIPE CHANGER ONCOLOGY 05/18/19 Kyler Anthony MD [address] [address] EP Auto Leasing Manager CARDIOVASCULAR DISEASE 06/01/19
--- OUTSIDE RECORDS SUMMARY | 2024-12-21 12:12 | XMS_ITS | Encounter Summary ---
Author Organization [facility] Address [facility] [place] [address] Care Team Providers Care Salesperson Children'S Shoes Name Role Phone Jess SosaREMY Primary Care Provider Gerard Pires MD Unavailable [phone] HusArt maki MD Unavailable [phone] Dinah Mcintosh MD Primary Care Provider [phone] Encounter Details Date Type Department Care Team (Late Contact Info) Description 12/24/2019 MyChart Message Enc [facility] Family Medicine [address] [address] Jess Sosa FNP-BC RE: Other Social History Tobacco Use Types Packs/Day Years Used Date Smoking Tobacco: Former Cigarettes 1 10 0 02/27/2008 - 02/26/2018 Smokeless Tobacco: Never Alcohol Use Standard Drinks/Week Comments Yes 0 (1 standard drink = 0.6 oz pur e alcohol) Comments No Sex and Gender Information Value Date Recorded Sex Assigned at Female 10/28/2024 9:05 AM SEGREGATOR Legal Sex Female 9:09 PM CDT Gender Identity Not on file Sexual Orientation Not on file 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 [address] [address] 01/27/2025 10:30 AM CDT Appointment [place] [facility] [place] [address] Art Rao MD Three [facility]. [address] [address] 01/27/2025 12:00 PM CDT Appointment [facility] [place] [address] Art Rao MD Three [facility]. [address] [address] documented as of this encounter Visit Diagnoses Not on filedocumented in this encounter Care Teams Salesperson Children[employer]S Shoes Relationship Specialty Start Date End Date Jess Sosa [facility] PCP - General NURSE PRACTITIONER 11/10/18 05/28/24 Dinah Mcintosh MD [address] [place] [address] PCP - General FAMILY PRACTICE 05/29/24 Gerard Olson MD [address] [facility] [place] [address] [facility] NURSE PRACTITIONER ONCOLOGY 05/18/19 Art Rao MD Three [facility]. [address] [address] EP Sap Business Objects Consultant CARDIOVASCULAR DISEASE 06/01/19 documented as of this encounter
--- OUTSIDE RECORDS SUMMARY | 2024-12-21 12:12 | XMS_ITS | Encounter Summary ---
Author Organization [facility] Address [address] [place] [address] Care Team Providers Care Entertainment Usher Name Role Phone Unavailable Primary Care Provider Unavailabl e Encounter Details Date Type Department Care Team (Late st Contact Info) Description 07/29/2019 Lab Requisition [facility] [address] [facility], [facility] [place] [address] Tg Garcia DO [address] [facility] [address] [place] [address] Social History Tobacco Use Types Packs/Day Years [...] 12:00 AM CDT) Case Report Dermatopathology Report Case: [id number] Authorizing Provider: Tg Garcia DO Collected: 07/28/2019 12:00 AM Ordering Location: [facility] Received: 07/29/2019 11:50 AM Pathologist: Kennedi Monet MD Specimen: Skin, left upper back 9 3:10 PM HUMAN RESOURCE ASSISTANT DERMATOPATHOLOGY LABORATORY Final Diagnosis Specimen A. SKIN, left upper back: EPIDERMOID CYST WITH EVIDENCE OF RUPTURE (L72.0) 3:10 PM [facility] DERMATOPATH[facility]Y [facility]ORATORY Clinical History R/O cyst. 3:10 PM [facility] DERMATOPATHOLOGY [facility]ORATORY Gross Description Specimen A: Received is one formalin filled container labeled with the patient's name and designated left upper back. The specimen consists of a punch measuring [id number], bisected. Jar 0. 3:10 PM [facility] DERMATOPATHOLOGY LABORATORY Microscopic Description Specimen A. SKIN, left upper back: Within the dermis, there is a space lined by epithelium that resembles normal epidermis and the infundibular portion of the hair follicle. Surrounding this is an infiltrate with neutrophils, histiocytes, and multinucleated giant cells. 3:10 PM [facility] DERMATOPATHOLOGY LABORATORY Disclaimer An external and internal positive and negative controls are appropriate for the histochemical, immunohistochemical and immunofluorescence stain(s) in this case (if any), except where stated explicitly. The performance characteristics of the stain(s) cited in this report were developed and its performance characteristic determined by the Dermatopathology Laboratory at [facility], directed by Dr. Gigi Monet. These tests need not be, and therefore are not, approved by the [place] Food and Drug Administration. The tests are used for clinical purposes. Billing Codes Specimen Charges Stain Charges 72519 1 3:10 PM [facility] DERMATOPATHOLOGY LABORATORY Embedded Images 3:10 PM [facility] DERMATOPATHOLOGY [facility]ORATORY Pathology/Cytolog y TISSUE SPECIMEN FROM SKIN / Unknown 07/28/2019 07/29/2019 11:50 AM CDT Tg Garcia DO LAB - PATHOLOGY/C YTOLOGY ORDERABLES DERMATOPATHOLOGY LABORATORY [facility] - Department of Dermatology [address] [place] [address] 5th Floor Lab B [address] [phone] documented in this encounter Visit Diagnoses Not on filedocumented in this encounter Additional Health Concerns Infection Onset Date Last Indicated Resolved Time COVID-19 Under Investigation 09/24/2020 09/24/2020 09/24/2020 4:38 PM HUMAN RESOURCE ASSISTANT documented as of this encounter
--- OUTSIDE RECORDS SUMMARY | 2024-12-21 12:12 | XMS_ITS | Encounter Summary ---
Author Organization [facility] Address [facility] [place] [address] Care Team Providers Care Forklift Mechanic Name Role Phone Loki Sosaia [facility] Primary Care Provider Gerard Pires MD Unavailable [phone] HusArt maki MD Unavailable [phone] Dinah Mcintosh MD Primary Care Provider [phone] Encounter Details Date Type Department Care Team (Late st Contact Info) Description 10/01/2022 MPOWER Mobile Message Enc [facility], [address] [address] Mychart, [facility] Provider Carelink Monitor not connecting Social History [...] Sex Assigned at Female 10/28/2024 9:05 AM BIOGEOGRAPHER Legal Sex Female 9:09 PM CDT Gender Identity Not on file Sexual Orientation Not on file Occupation Industry Job Start Date Job End Date 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 [address] [address] 01/27/2025 10:30 AM CDT Appointment [facility] [place] [address] Art Rao MD Three [facility]. [address] [address] 01/27/2025 12:00 PM CDT Appointment [facility] [place] [address] Art Rao MD Three [facility]. [address] [address] documented as of this encounter Visit Diagnoses Not on filedocumented in this encounter Care Teams Forklift Mechanic Relationship Specialty Start Date End Date Jess Sosa [facility] PCP - General NURSE PRACTITIONER 11/10/18 05/28/24 Dinah Mcintosh MD [address] [place] [address] PCP - General FAMILY PRACTICE 05/29/24 Gerard Olson MD [address] [place] [address] MEDIA LIBRARIAN ONCOLOGY 05/18/19 Art Rao MD [address] [address] EP Machine Operator Transplanter CARDIOVASCULAR DISEASE 06/01/19 documented as of this encounter
--- OUTSIDE RECORDS SUMMARY | 2024-12-21 12:12 | XMS_ITS | Encounter Summary ---
Author Organization [facility] Address [facility] [place] [address] Care Team Providers Care Shredded Filler Cigar Maker Machine Name Role Phone Loki Sosaia [facility] Primary Care Provider Gerard Pires MD Unavailable [phone] Art Rao MD Unavailable [phone] Dinah Mcintosh MD Primary Care Provider [phone] Encounter Details Date Type Department Care Team (Late st Contact Info) Description 09/20/2020 Tã Em Bé Message Enc [facility]'[address] [address] Mychart, [facility] Provider Disconnected Carelink since 09/04/20 letter 1 Social History Tobacco Use Types Packs/Day Years Used Date Smoking Tobacco: Former Cigarettes 1 10 0 02/27/2008 - 02/26/2018 Smokeless Tobacco: Never Alcohol Use Standard Drinks/Week Comments Yes 0 (1 standard drink = 0.6 oz pur e alcohol) Comments No Sex and Gender Information Value Date Recorded Sex Assigned at Female 10/28/2024 9:05 AM PRECISION STRUCTURAL METAL FITTER Legal Sex Female 9:09 PM CDT Gender Identity Not on file Sexual Orientation Not on file 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 Unable to assess 09/18/2020 4:04 PM PRECISION STRUCTURAL METAL FITTER documented as of this encounter Plan of Treatment Upcoming Encounters Date Type Department Care Team (Late st Contact Info) Description 01/27/2025 10:00 AM CDT Appointment [facility] [employer] [place] [address] [facility] [address] [address] 01/27/2025 10:30 AM CDT Appointment [facility] [place] [address] Art Rao MD Three [facility]. [address] [address] 01/27/2025 12:00 PM CDT Appointment [facility] [employer] [place] [address] Art Rao MD Three [facility]. [address] [address] documented as of this encounter Visit Diagnoses Not on filedocumented in this encounter Care Teams Shredded Filler Cigar Maker Machine Relationship Specialty Start Date End Date GeetaJess andersen [facility] PCP - General NURSE PRACTITIONER 11/10/18 05/28/24 Dinah Mcintosh MD [address] [place] [address] PCP - General FAMILY PRACTICE 05/29/24 Gerard Olson MD [address] [place] [address] LOCOMOTIVE DRIVER ONCOLOGY 05/18/19 Art Rao MD [address] [place] [address] [place] [address] EP Treasury Associate CARDIOVASCULAR DISEASE 06/01/19 documented as of this encounter
--- OUTSIDE RECORDS SUMMARY | 2024-12-21 12:12 | XMS_ITS | Encounter Summary ---
Author Organization [facility] Address [facility] [place] [address] Care Team Providers Care Drafter Seismograph Name Role Phone Loki Sosaia [facility] Primary Care Provider Gerard Pires MD Unavailable [phone] Art Rao MD Unavailable [phone] Dinah Mcintosh MD Primary Care Provider [phone] Encounter Details Date Type Department Care Team (Late st Contact Info) Description 10/12/2020 Hepregen Message Enc [facility] [address] Josefina, [facility] Provider Disconnected Carelink since 09/04/20 letter 2 [...] Sex Assigned at Female 10/28/2024 9:[address]CHANIC Legal Sex Female 9:09 PM CDT Gender Identity Not on file Sexual Orientation Not on file 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 No / Unsure 10/09/2020 2:[address]CHANIC documented as of this encounter Plan of Treatment Upcoming Encounters Date Type Department Care Team (Late st Contact Info) Description 01/27/2025 10:00 AM CDT Appointment [place] [place] [address] Art Rao MD Three [facility]. [address] [address] 01/27/2025 10:30 AM CDT Appointment [facility] [place] [address] Art Rao MD Three [facility]. [address] [address] 01/27/2025 12:00 PM CDT Appointment [facility] [place] [address] Art Rao MD Three [facility]. [address] [address] documented as of this encounter Visit Diagnoses Not on filedocumented in this encounter Care Teams Drafter Seismograph Relationship Specialty Start Date End Date [facility] - General NURSE PRACTITIONER 11/10/18 05/28/24 Dinah Mcintosh MD [address] [place] [address] PCP - General FAMILY PRACTICE 05/29/24 Gerard Olson MD [address] [place] [address] ATTENDANCE CLERK ONCOLOGY 05/18/19 Art Rao MD Three [facility]. [address] [phone] EP Dual Rate Supervisor CARDIOVASCULAR DISEASE 06/01/19 documented as of this encounter
--- OUTSIDE RECORDS SUMMARY | 2024-12-21 12:12 | XMS_ITS | Encounter Summary ---
Author Organization [facility] Address [facility] [place] [address] Care Team Providers Care Testing And Regulating Chief Name Role Phone Jess SosaREMY Primary Care Provider Gerard Pires MD Unavailable [phone] Art Rao MD Unavailable [phone] Dinah Mcintosh MD Primary Care Provider [phone] Encounter Details Date Type Department Care Team (Late st Contact Info) Description 01/10/2021 MyChart Message Enc [facility] Medical Group Family Medicine [address] [address] Jess Sosa FNP-BC RE: Medication Questions Social History Tobacco Use [...] Sex Assigned at Female 10/28/2024 9:05 AM CHILD PROTECTION SPECIALIST Legal Sex Female 9:09 PM CDT Gender Identity Not on file Sexual Orientation Not on file Occupation Industry Job Start Date Job End Date [employer] [facility]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 [address] [address] 01/27/2025 10:30 AM CDT Appointment [employer] [place] [address] Art Rao MD Three [facility]. [address] [address] 01/27/2025 12:00 PM CDT Appointment [employer] [place] [address] Art Rao MD Three [facility] [address] [address] documented as of this encounter Visit Diagnoses Not on filedocumented in this encounter Care Teams Testing And Regulating Chief Relationship Specialty Start Date End Date [facility] - General NURSE PRACTITIONER 11/10/18 05/28/24 Dinah Mcintosh MD [address] [place] [address] PCP - General FAMILY PRACTICE 05/29/24 Gerard Olson MD 2015 [facility] [place] [address] SWATCH CLERK ONCOLOGY 05/18/19 Art Rao MD [facility]. [address] [address] EP Monkey Trainer CARDIOVASCULAR DISEASE 06/01/19 documented as of this encounter
--- OUTSIDE RECORDS SUMMARY | 2024-12-21 12:12 | XMS_ITS | Encounter Summary ---
Author Organization [facility] Address [facility] [place] [address] Care Team Providers Care Cook House Supervisor Name Role Phone Jess SosaREMY Primary Care Provider Gerard Pires MD Unavailable [phone] HusArt maki MD Unavailable [phone] Dinah Mcintosh MD Primary Care Provider [phone] Encounter Details Date Type Department Care Team (Late Contact Info) Description 07/20/2020 MyChart Message [facility] Family Medicine [address] [address] Jess Sosa FNP-BC RE: Question Social History Tobacco Use Types Packs/Day Years Used Date Smoking Tobacco: Former Cigarettes 1 10 0 02/27/2008 - 02/26/2018 Smokeless Tobacco: Never Alcohol Use Standard Drinks/Week Comments Yes 0 (1 standard drink = 0.6 oz pur e alcohol) Comments No Sex and Gender Information Value Date Recorded Sex Assigned at Female 10/28/2024 9:05 AM BIOPROCESS DEVELOPMENT ENGINEER Legal Sex Female 9:09 PM CDT Gender Identity Not on file Sexual Orientation Not on file 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 [address] [address] 01/27/2025 10:30 AM CDT Appointment [place] [address] Art Rao MD Three [facility]. [address] [address] 01/27/2025 12:00 PM CDT Appointment [place] [address] Art Rao MD Three [facility]. [address] [address] documented as of this encounter Visit Diagnoses Not on filedocumented in this encounter Care Teams Cook House Supervisor Relationship Specialty Start Date End Date Jess Sosa [facility] PCP - General NURSE PRACTITIONER 11/10/18 05/28/24 Dinah Mcintosh MD [address] [place] [address] PCP - General FAMILY PRACTICE 05/29/24 Gerard Olson MD 2015 [place] [address] MAGNETIC PROSPECTING SUPERVISOR ONCOLOGY 05/18/19 Art Rao MD Three [facility]. [address] [address] EP Hogshead Stripper CARDIOVASCULAR DISEASE 06/01/19 documented as of this encounter
--- OUTSIDE RECORDS SUMMARY | 2024-12-21 12:12 | XMS_ITS | Encounter Summary ---
Author Organization [facility] Address [facility]6 [place] [address] Care Team Providers Care Inspector Open Die Name Role Phone Jess SosaREMY Primary Care Provider Gerard Pires MD Unavailable [phone] HusArt maki MD Unavailable [phone] Dinah Mcintosh MD Primary Care Provider [phone] Encounter Details Date Type Department Care Team (Late Contact Info) Description 10/04/2020 MyChart Message Enc [facility] Medical Group [facility] Medicine [address] [address] Jess Sosa FNP-BC RE: Question Social History Tobacco Use Types Packs/Day Years Used Date Smoking Tobacco: Former Cigarettes 1 10 0 02/27/2008 - 02/26/2018 Smokeless Tobacco: Never Alcohol Use Standard Drinks/Week Comments Yes 0 (1 standard drink = 0.6 oz pur e alcohol) Comments No Sex and Gender Information Value Date Recorded Sex Assigned at Female 10/28/2024 9:05 AM POLICE COMMANDING OFFICER Legal Sex Female 9:09 PM CDT Gender Identity Not on file Sexual Orientation Not on file 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 Unable to assess 09/18/2020 4:04 PM POLICE COMMANDING OFFICER documented as of this encounter Plan of Treatment Upcoming Encounters Date Type Department Care Team (Late Contact Info) Description 01/27/2025 10:00 AM CDT Appointment [place] [address] Art Rao MD Three [facility]. [address] [address] 01/27/2025 10:30 AM CDT Appointment [place] [place] [address] Art Rao MD Three [facility]. [address] [address] 01/27/2025 12:00 PM CDT Appointment [place] [place] [address] Art Rao MD Three [facility]. [address] [id number] documented as of this encounter Visit Diagnoses Not on filedocumented in this encounter Care Teams Inspector Open Die Relationship Specialty Start Date End Date Jess Sosa [facility] PCP - General NURSE PRACTITIONER 11/10/18 05/28/24 Dinah Mcintosh MD [address] [place] [address] PCP - General FAMILY PRACTICE 05/29/24 Gerard Olson MD 2015 [place] [address] TOOL MAKER ONCOLOGY 05/18/19 Art Rao MD Three [facility]. [address] [address] EP Land Conservation Specialist CARDIOVASCULAR DISEASE 06/01/19 documented as of this encounter
--- OUTSIDE RECORDS SUMMARY | 2024-12-21 12:12 | XMS_ITS | Encounter Summary ---
Author Organization [facility] Address [facility] [place] [address] Care Team Providers Care Watch Dial Printer Name Role Phone Jess Sosa [facility] Primary Care Provider Gerard Pires MD Unavailable [phone] Art Rao MD Unavailable [phone] Dinah Mcintosh MD Primary Care Provider [phone] Encounter Details Date Type Department Care Team (Late st Contact Info) Description 06/21/2019 MyChart Message Enc [facility] Medical Group [facility] Medicine [address] [address] Jess Sosa SAILING INSTRUCTORDENA RE: Question Social History Tobacco Use Types Packs/Day Years Used Date Smoking Tobacco: Former Cigarettes 1 10 0 02/27/2008 - 02/26/2018 Smokeless Tobacco: Never Alcohol Use Standard Drinks/Week Comments Yes 0 (1 standard drink = 0.6 oz pur e alcohol) Comments No Sex and Gender Information Value Date Recorded Sex Assigned at Female 10/28/2024 9:05 AM PRIMARY CARE MD Legal Sex Female 9:09 PM CDT Gender Identity Not on file Sexual Orientation Not on file documented as of this encounter Plan of Treatment Upcoming Encounters Date Type Department Care Team (Late st Contact Info) Description 01/27/2025 10:00 AM CDT Appointment [facility] Pediatric Geneticist [place], [place] [id number] Art Rao MD Three [facility] [address] [place], [place] [id number] 01/27/2025 10:30 AM CDT Appointment [facility] [place] [address] Art Rao MD Three [facility] [address] [place] [address] 01/27/2025 12:00 PM CDT Appointment [facility] Pediatric [place] [address] Art Rao MD Three [facility]. [facility] [address] [place] [address] documented as of this encounter Visit Diagnoses Not on filedocumented in this encounter Care Teams Watch Dial Printer Relationship Specialty Start Date End Date Jess Sosa [facility] PCP - General NURSE PRACTITIONER 11/10/18 05/28/24 Dinah Mcintosh MD [address] [place] [address] PCP - General FAMILY PRACTICE 05/29/24 Gerard Olson MD [address] [place] [address] SENIOR IT SECURITY ANALYST ONCOLOGY 05/18/19 Art Rao MD Three [facility]. [facility] [address] [place], [place] [address] EP Locomotive Operator CARDIOVASCULAR DISEASE 06/01/19 documented as of this encounter
--- OUTSIDE RECORDS SUMMARY | 2024-12-21 12:12 | XMS_ITS | Encounter Summary ---
Author Organization [facility] Address [facility] [place] [address] Care Team Providers Care Research Scholar Name Role Phone Loki Sosaia [facility] Primary Care Provider Gerard Pires MD Unavailable [phone] HusArt maki MD Unavailable [phone] Dinah Mcintosh MD Primary Care Provider [phone] Encounter Details Date Type Department Care Team (Late Contact Info) Description 03/25/2023 MyChart Message Enc [facility] Medical Group [facility] [address] [place] [address] [place], [facility] Provider Air Quality Message Social History Tobacco [...] Sex Assigned at Female 10/28/2024 9:05 AM RUBBER LINER Legal Sex Female 9:09 PM CDT Gender Identity Not on file Sexual Orientation Not on file 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 [address] Art Rao MD Three [facility]. [address] [address] 01/27/2025 10:30 AM CDT Appointment [place] [address] Art Rao MD Three [facility]. [address] [address] 01/27/2025 12:00 PM CDT Appointment [place] [address] Art Rao MD Three [facility]. [address] [address] documented as of this encounter Visit Diagnoses Not on filedocumented in this encounter Care Teams Research Scholar Relationship Specialty Start Date End Date Jess [facility] PCP - General NURSE PRACTITIONER 11/10/18 05/28/24 Dinah Mcintosh MD [facility] [place] [address] PCP - General FAMILY PRACTICE 05/29/24 Gerard Olson MD 2015 [facility] [place] [address] PRINTED CIRCUIT BOARDS BEVELER ONCOLOGY 05/18/19 Art Rao MD Three [facility]. [address] [address] EP Earthmoving Plant Operator CARDIOVASCULAR DISEASE 06/01/19 documented as of this encounter
--- OUTSIDE RECORDS SUMMARY | 2024-12-21 12:12 | XMS_ITS | Encounter Summary ---
Author Organization [facility] Address [facility] [place] [address] Care Team Providers Care Onion Tier Name Role Phone Loki Sosaia [facility] Primary Care Provider Gerard Pires MD Unavailable [phone] Art Rao MD Unavailable [phone] Dinah Mcintosh MD Primary Care Provider [phone] Encounter Details Date Type Department Care Team (Late st Contact Info) Description 10/31/2020 [employer] Message Enc [facility] [address] [place], [facility] Provider Disconnected Carelink since 09/04/20 letter 3 [...] Sex Assigned at Female 10/28/2024 9:05 AM CATTLE CARE WORKER Legal Sex Female 9:09 PM CDT Gender Identity Not on file Sexual Orientation Not on file 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 No / Unsure 10/09/2020 2:40 PM CATTLE CARE WORKER documented as of this encounter Plan of Treatment Upcoming Encounters Date Type Department Care Team (Late st Contact Info) Description 01/27/2025 10:00 AM CDT Appointment [place] [address] Art Rao MD Three [facility]. [address] [address] 01/27/2025 10:30 AM CDT Appointment [place] [address] Art Rao MD Three [facility]. [address] [address] 01/27/2025 12:00 PM CDT Appointment [place] [address] Art Rao MD Three [facility]. [address] [address] documented as of this encounter Visit Diagnoses Not on filedocumented in this encounter Care Teams Onion Tier Relationship Specialty Start Date End Date Jess Sosa [facility] PCP - General NURSE PRACTITIONER 11/10/18 05/28/24 Dinah Mcintosh MD [address] [place] [address] PCP - General FAMILY PRACTICE 05/29/24 Gerard Olson MD 2015 [email or web address] [address] HOSPICE BEREAVEMENT COORDINATOR ONCOLOGY 05/18/19 Art Rao MD Three [facility]. [address] [address] EP Water Service Supervisor CARDIOVASCULAR DISEASE 06/01/19 documented as of this encounter
--- OUTSIDE RECORDS SUMMARY | 2024-12-21 12:13 | XMS_ITS | Clinical Summary ---
Author Organization [facility] Address [address] [place] [address] Care Team Providers Care Hair Tinter Name Role Phone Jess Sosa NP Primary Care Provider [phone] Allergies Active Allergy Reactions Criticality Noted Date [...] on file Legal Sex Female 8:48 PM WET PROCESS ASSISTANT HEAD MILLER Gender Identity Not on file Sexual Orientation Not on file Obstetrics History Last Filed Vital Signs Vital Sign Reading Time Taken Comments Blood Pressure 139/99 12/04/2021 3:06 PM WET PROCESS ASSISTANT HEAD MILLER Pulse 118 12/04/2021 3:06 PM WET PROCESS ASSISTANT HEAD MILLER Temperature 36.8 C (98.2 F) 12/04/2021 3:06 PM WET PROCESS ASSISTANT HEAD MILLER Respiratory Rate 20 12/04/2021 3:06 PM WET PROCESS ASSISTANT HEAD MILLER Oxygen Saturation 97% 12/04/2021 3:06 PM WET PROCESS ASSISTANT HEAD MILLER Inhaled Oxygen Concentration - - Weight 99.2 kg (218 lb 12.8 oz) 12/04/2021 3:06 PM WET PROCESS ASSISTANT HEAD MILLER Height 167.6 cm (5' 6 ) 12/04/2021 3:06 PM WET PROCESS ASSISTANT HEAD MILLER Body Mass Index 35.32 12/04/2021 3:06 PM WET PROCESS ASSISTANT HEAD MILLER Plan of Treatment Health Maintenance Due Date Last Done Comments Cervical Cancer Screening 1992 Depression Screening 1992 Hepatitis C Screening 1992 Regular Well Visit/Exam 18-64 2010 Pneumococcal vaccine <65 (1 of 2 - PCV) 11/29/2011 Covid-19 Vaccine ( season) 2024 09/16/2021, 11/20/2020, 10/20/2020 Influenza Vaccine (#1) 2024 10/02/2021, 2015 DTaP/Tdap/Td Vaccine (9 - Td or Tdap) 06/15/2027 06/15/2017, 05/18/2007, 05/18/2007, Additional history exists Hepatitis B Screening Completed 02/23/2003 , 04/19/1998, 05/04/1997 Varicella Vaccines Completed 06/15/2017, 0 04/19/1998, 03/06/1994 HPV Vaccines Aged Out No longer eligi ble based on patient's age to complete this topic Insurance ANTHEM ACCESS CHOICE ANTHEM ACCESS CHOICE Care Teams Hair Tinter Relationship Specialty Start Date End Date Jess Sosa NP [facility] [place] [address] PCP - General Nurse Practitioner 12/04/21
--- OUTSIDE RECORDS SUMMARY | 2024-12-21 12:13 | XMS_ITS | Referral Summary ---
Author Organization [facility] Address [address] [place] [address] Care Team Providers Care Willow Analyst Name Role Phone Jess Sosa NP Primary Care Provider [phone] Allergies Active Allergy Reactions Criticality Noted Date [...] on file Legal Sex Female 8:48 PM AIRPLANE PILOT Gender Identity Not on file Sexual Orientation Not on file Last Filed Vital Signs Vital Sign Reading Time Taken Comments Blood Pressure 139/99 12/04/2021 3:06 PM AIRPLANE PILOT Pulse 118 12/04/2021 3:06 PM AIRPLANE PILOT Temperature 36.8 C (98.2 F) 12/04/2021 3:06 PM AIRPLANE PILOT Respiratory Rate 20 12/04/2021 3:06 PM AIRPLANE PILOT Oxygen Saturation 97% 12/04/2021 3:06 PM AIRPLANE PILOT Inhaled Oxygen Concentration - - Weight 99.2 kg (218 lb 12.8 oz) 12/04/2021 3:06 PM AIRPLANE PILOT Height 167.6 cm (5' 6 ) 12/04/2021 3:06 PM AIRPLANE PILOT Body Mass Index 35.32 12/04/2021 3:06 PM AIRPLANE PILOT Plan of Treatment Not on file Insurance [employer] CHOICE Care Teams Willow Analyst Relationship Specialty Start Date End Date Jess Sosa NP [address] [place] [address] PCP - General Nurse Practitioner 12/04/21
--- OUTSIDE RECORDS SUMMARY | 2024-12-21 12:13 | XMS_ITS | Clinical Summary ---
Author Organization [facility] Address [address] [place] [address] Care Team Providers Care Custodial Operations Manager Name Role Phone Unavailable Primary Care Provider Unavailabl e Source Comments [facility],non-owned Affiliates and Associated Physician Practices is amultiple site organization consisting of ambulatory clinics and hospital sitesin [place], [place] and [place]. This disclosure is being madepursuant to the Care Everywhere program and may not contain all information available regarding this patient. Last updated 18.[facility] Allergies Active Allergy Reactions Criticality Noted Date [...] 84 04/08/2020 9:00 AM CDT Temperature 36.7 C (98.1 F) 04/08/2020 7:39 AM CDT Respiratory Rate 19 04/08/2020 9:00 AM CDT [...] complete this topic MENINGOCOCCAL (Group B) VACCINE SHARED DECISION-MAKING Aged Out No longer eligible based on patient's age to complete this topic MENINGOCOCCAL GROUPS A/C/Y/W VACCINE Aged Out No longer eligible b ased on patient's age to complete this topic PNEUMOCOCCAL VACCINE Aged Out No long er eligible based on patient's age to complete this topic
--- OUTSIDE RECORDS SUMMARY | 2024-12-21 12:21 | XMS_ITS | CONTINUITY OF CARE DOCUMENT ---
Author Name grace, rolandjose carlos Address Unknown Organization [facility] Address [address] [place] [address] Phone [phone] Care Team Providers Care Cuprous Chloride Operator Name Role Phone Nancy DAUGHERTY, [facility] Unavailable LISA LUNA Unavailable [phone] LISA LUNA Unavailable INSURANCE PROVIDERS Payer name Policy type / Coverage type [place] red libertarian ID [facility] [id number]
== END 2024-12-21 11:18 | disposition home or self-care (01) ==
PROVIDERS: Emergency Provider Nurse Practitioner Family
DX: J02.8 Acute pharyngitis due to other specified organisms (principal); F17.290 Nicotine dependence, other tobacco product, uncomplicated; J45.909 Unspecified asthma, uncomplicated; F41.9 Anxiety disorder, unspecified; F32.A Depression, unspecified; E66.9 Obesity, unspecified; Z68.35 Body mass index [BMI] 35.0-35.9, adult
CPT/HCPCS: 87081; 87880; 99213; G0463